=== PATIENT | male | born 1960 | race Caucasian/White ===

== ENCOUNTER 2023-08-20 19:22 | Emergency (ER) | payer OTHER, SELFPAY ==
[2023-08-20] VITALS (10 sets, daily range): BP systolic 148–159; BP diastolic 95–103; PULSE 68–86; RESP 10–19; TEMP 36.5; O2SAT 96; BMI 26.6
--- NOTE | 2023-08-20 19:49 | XR_ITS ---
The [address] [address] Patient Name: RETA FRASER MRN: [id number] date: 1960 Sex: M Assigned Patient Location: ER Current Patient Location: ER Accession/Order Number: [id number] Exam Date: 08/20/2023 20:25 Report Date: 08/20/2023 20:53 At the request of: CRISTIANA LIVINGSTON Procedure: XR chest 1V EXAM: XR chest 1V HISTORY: Nausea and vomiting COMPARISON: None. TECHNIQUE: Single frontal view of the chest. FINDINGS: Tubes/lines/devices: None. Lungs: Adequate inflation. No evidence of pneumonia or pulmonary edema. Pleura: No pneumothorax. No pleural effusion. Heart and mediastinum: No enlargement of the cardiomediastinal silhouette. Minimal aortic atherosclerosis. Bones/soft tissues: No acute osseous findings. Unremarkable soft tissues. Abdomen: Unremarkable. XR/XR chest 1V IMPRESSION: No acute pulmonary findings. Electronically authenticated by: OSVALDO PAZ Date: 08/20/2023 20:53
--- NOTE | 2023-08-20 19:51 | ECG_ITS ---
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
[2023-08-20] MEDS: 0.9 % SODIUM CHLORIDE 1,000 ML 999 ML IV (20:09)
[2023-08-20] MEDS: DIPHENHYDRAMINE HCL 50 MG/ML (1ML) VIAL 25 MG IV (20:10)
[2023-08-20] MEDS: ONDANSETRON PF 4 MG/2 ML VIAL IV (20:10)
[2023-08-20] MEDS: KETOROLAC TROMETHAMINE 30 MG/ML VIAL IVP (20:10)
--- NOTE | 2023-08-20 20:12 | ED.GENADUL1 ---
HPI - General Adult General Chief complaint: Recheck/Abnormal Lab/Rx Stated complaint: Medication Refill, Anxiety Time Seen by Provider: 08/20/23 19:43 Source: patient Mode of arrival: walk-in History of Present Illness HPI narrative: 63-year-old male presents to the ER with concerns of nausea, dry heaving occasional vomiting and diarrhea. Patient states he feels he is having withdrawal symptoms from missing 2 days worth of his 75mg pregablin medication.Patient sees rheumatology for arthritis, states he takes meloxicam, hydrochloriquine and pregabalin to control his symptoms. pt gets 90 day rx, missing pills for last wk of treatment.. pt reports dry heaves/ body aches starting day he ran out. present to ER this evening.. 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 No chest pain, but some shortness of breath, his brother has a history of quadruple bypass heart surgery. Patient himself has no cardiac history. Denies any abdominal pain. Onset (ago): day(s) (2) Severity: moderate Associated symptoms: Reports nausea/vomiting Related Data Previous Rx's Medication Instructions Recorded ondansetron HCl 4 mg tablet 4 mg PO Q6H PRN nausea and 08/20/23 vomiting #12 tabs pregabalin 75 mg capsule 75 mg PO Q8H 6 days #18 caps 08/20/23 Allergies Allergy/AdvReac Type Severity Reaction Status Date / Time acetaminophen [From Vicodin] Allergy Mild Gastrointestinal Verified 08/20/23 19:42 Upset hydrocodone [From Vicodin] Allergy Mild Gastrointestinal Verified 08/20/23 19:42 Upset Review of Systems ROS Constitutional Denies: fever or chills Eyes Denies: change in vision Ears, nose, mouth, and throat Denies: throat pain or neck pain Cardiovascular Denies: chest pain or palpitations Respiratory Denies: shortness of breath or cough Gastrointestinal Reports: nausea, vomiting and diarrhea; Denies: abdominal pain Genitourinary Denies: painful urination Musculoskeletal Denies: back pain or neck pain Integumentary/Breast Denies: rash Neurological Denies: headache Psychiatric Denies: anxiety Hematologic/Lymphatic Denies: easy bruising PFSH PFSH Social History Smoking status: Former smoker Exam Narrative Exam Narrative: Nurses notes and vital signs reviewed and patient is not hypoxic. General: The patient appears uncomfortable + dry heaves Skin: Warm, dry, no pallor noted. No evidence of rash Head: Normocephalic, atraumatic Neck: Supple, trachea mid-line, no tenderness, no lymphadenopathy Eye: Pupils are equal, round and reactive to light, EOMI Ears, Nose, Mouth, and Throat: TM are clear, normal light reflex, oral mucosa is moist, no posterior oropharynx erythema or hypertrophy, uvula is mid-line Cardiovascular: Regular Rate and Rhythm Respiratory: Patient is in no distress, no accessory muscle use, lungs are clear to auscultation, no wheezing, rales or rhonchi. Chest Wall: no tenderness Back: non-tender, no CVA tenderness Musculoskeletal: normal ROM, no tenderness, no swelling, no joint swelling. subjective arthralgia, moving all joints. no warmth or erythema, no swelling. GI: Normal bowel sounds, no tenderness to palpation, no masses appreciated. No rebound, guarding, or rigidity noted. Neurological: A&O x4 Psychiatric: Cooperative Constitutional Vital Signs, click to edit/add: Last Vital Signs Temp 97.7 F 08/20/23 19:33 Pulse 72 08/20/23 21:20 Resp 17 08/20/23 21:20 BP 159/95 H 08/20/23 21:00 Pulse Ox 96 08/20/23 19:33 O2 Del Method Room Air 08/20/23 19:33 Course Vital Signs Vital signs: Vital Signs Temperature 97.7 F 08/20/23 19:33 Pulse Rate 86 08/20/23 19:33 Respiratory Rate 18 08/20/23 19:33 Blood Pressure 148/97 H 08/20/23 19:33 Pulse Oximetry 96 08/20/23 19:33 Oxygen Delivery Method Room Air 08/20/23 19:33 Temperature 97.7 F 08/20/23 19:33 Pulse Rate 72 08/20/23 21:20 Respiratory Rate 17 08/20/23 21:20 Blood Pressure 159/95 H 08/20/23 21:00 Pulse Oximetry 96 08/20/23 19:33 Oxygen Delivery Method Room Air 08/20/23 19:33 Medical Decision Making MDM Narrative Medical decision making narrative: We discussed potential withdrawal symptoms, dealing with symptoms for 2 days. Patient taking his other medications for arthritis. Labs discussed at bedside. Patient treated with 1 L IV fluids, zofran 4mg Benadryl 25 mg IV, Toradol 30 mg IV and given dose of pregabalin 75 mg p.o. Reevaluated, reports feeling much better, no longer nauseous, tolerating p.o. ice chips. We discussed elevated BUN consistent with early dehydration given his dry heaving nausea and vomiting. We discussed his concerns with medication withdrawals. Patient has the bottle of prescription which is empty. He agrees to take the medication as prescribed with risks and benefits discussed, he is unable to get a refill until 08/26. 6-day bridge prescription was sent in with a message to the pharmacist. Message was relayed to the pharmacist that I am aware of his prior prescriptions but he is out of the medication. Patient was appreciative for of ER visit The patient is to followup with primary care physician in next 2-3 days or to return to the emergency department should any of the signs or symptoms worsen or new symptoms develop. Patient had questions answered. The patient agrees with the following Diagnosis and Treatment plan and the patient will be discharged home. Lab Data Lab results reviewed: Yes I reviewed the patient's lab results Labs: Lab Results 08/20/23 Range/Units 20:05 WBC 11.3 H (4.0-11.0) 10^3/uL RBC 5.30 (4.70-6.10) 10^6/uL Hgb 16.2 (14.0-18.0) g/dL Hct 48.5 (42.0-54.0) % MCV 91.5 (80.0-94.0) fL MCH 30.6 (25.9-34.0) pg MCHC 33.4 (29.9-35.2) g/dL RDW 13.3 (11.0-15.0) % Plt Count 261 (150-450) 10^3/uL MPV 9.0 L (9.5-13.5) fL Neut % (Auto) 78.9 H (43.0-75.0) % Lymph % (Auto) 13.3 L (20.5-60.0) % [place] % (Auto) 6.6 (1.7-12.0) % Eos % (Auto) 0.7 L (0.9-7.0) % Baso % (Auto) 0.1 L (0.2-2.0) % Neut # (Auto) 8.9 H (1.4-6.5) 10^3/uL Lymph # (Auto) 1.5 (1.2-3.8) 10^3/uL [place] # (Auto) 0.8 (0.3-0.8) 10^3/uL Eos # (Auto) 0.1 (0.0-0.7) 10^3/uL Baso # (Auto) 0.0 (0.0-0.1) 10^3/uL Abs Immat Gran (auto) 0.05 H (0.00-0.03) 10^3/uL Imm/Tot Granulo (auto) 0.4 (0.0-0.5) % Sodium 142 (136-145) mmol/L Potassium 4.0 (3.5-5.1) mmol/L Chloride 105 (98-107) mmol/L Carbon Dioxide 27.7 (21.0-32.0) mmol/L Anion Gap 13.3 BUN 21.0 H (7.0-18.0) mg/dL Creatinine 1.09 (0.70-1.30) mg/dL Est GFR ( Amer) >60 (>=60) Est GFR (Non-Af Amer) >60 (>=60) BUN/Creatinine Ratio 19.3 Glucose 114 H (74-106) mg/dL Calcium 9.7 (8.5-10.1) mg/dL Total Bilirubin 0.5 (0.2-1.0) mg/dL AST 25 (15-37) U/L ALT 38 (16-63) U/L Alkaline Phosphatase 59 (46-116) U/L Troponin I High Sens <4.0 L (4.0-76.1) pg/mL Total Protein 8.2 (6.4-8.2) g/dL Albumin 4.5 (3.4-5.0) g/dL Globulin 3.7 g/dL Albumin/Globulin Ratio 1.2 Imaging Data Chest x-ray: Radiologist's impression: ITS Impressions Chest X-Ray 08/20/23 19:49 IMPRESSION: No acute pulmonary findings. Electronically authenticated by: OSVALDO PAZ Date: 08/20/2023 20:53 ECG Data Attestation: I personally reviewed and interpreted this ECG as follows: Interpretation: EKG interpretation: Emergency Department physician interpretation, normal sinus rhythm 61, no ectopy, no ST segment elevation, normal axis. Discharge Plan Discharge Chief Complaint: Recheck/Abnormal Lab/Rx Clinical Impression: Medication withdrawal, Nausea & vomiting, Dehydration Patient Disposition: Home, Self-Care Time of Disposition Decision: 21:09 Condition: Good Prescriptions / Home Meds: New ondansetron HCl 4 mg tablet 4 mg PO Q6H PRN (Reason: nausea and vomiting) Qty: 12 0RF pregabalin 75 mg capsule 75 mg PO Q8H 6 Days Qty: 18 0RF Instructions: Acute Nausea and Vomiting (ED) Stand Alone Forms: Portal Instructions Referrals: EL BUSH [Primary Care Provider] - 1 week HAYDEN SHIRLEY [Physician] - 1 week Discharge Date/Time: 08/20/23 21:29
[2023-08-20] MEDS: PREGABALIN 75 MG CAPSULE PO (20:19)
[2023-08-20 20:36] LABS: Basophils Percent Auto 0.1 % (0.2-2.0); Eosinophils Absolute Auto 0.1 10^3/uL (0.0-0.7); Eosinophils Percent Auto 0.7 % (0.9-7.0); Hematocrit 48.5 % (42.0-54.0); Hemoglobin 16.2 g/dL (14.0-18.0); Immature Granulocytes Abs Auto 0.05 10^3/uL (0.00-0.03); Immature Granulocytes Pct Auto 0.4 % (0.0-0.5); Lymphocytes Absolute Auto 1.5 10^3/uL (1.2-3.8); Lymphocytes Percent Auto 13.3 % (20.5-60.0); Mean Corpuscular HGB Conc 33.4 g/dL (29.9-35.2); Mean Corpuscular Hemoglobin 30.6 pg (25.9-34.0); Mean Corpuscular Volume 91.5 fL (80.0-94.0); Monocytes Absolute Auto 0.8 10^3/uL (0.3-0.8); Monocytes Percent Auto 6.6 % (1.7-12.0); Neutrophils Absolute Auto 8.9 10^3/uL (1.4-6.5); Neutrophils Percent Auto 78.9 % (43.0-75.0); Platelet Count 261 10^3/uL (150-450); Red Cell Distribution Width 13.3 % (11.0-15.0); White Blood Count 11.3 10^3/uL (4.0-11.0)
[2023-08-20 20:48] LABS: Alanine Aminotransferase 38 U/L (16-63); Albumin Globulin Ratio 1.2; Albumin Level 4.5 g/dL (3.4-5.0); Alkaline Phosphatase 59 U/L (46-116); Anion Gap 13.3; Aspartate Amino Transferase 25 U/L (15-37); BUN Creatinine Ratio 19.3; Bilirubin Total 0.5 mg/dL (0.2-1.0); Calcium 9.7 mg/dL (8.5-10.1); Carbon Dioxide 27.7 mmol/L (21.0-32.0); Chloride 105 mmol/L (98-107); Estimated GFR (African America >60 (>=60); Estimated GFR (Non-African Ame >60 (>=60); Globulin 3.7 g/dL; Glucose 114 mg/dL (74-106); Sodium 142 mmol/L (136-145); Total Protein 8.2 g/dL (6.4-8.2); Troponin I High Sensitivity <4.0 pg/mL (4.0-76.1)
== END 2023-08-20 21:29 | disposition home or self-care (01) ==
PROVIDERS: Personal Emergency Response Attendant; Emergency Provider Internal Medicine; PCP Family Medicine
DX: F19.239 Other psychoactive substance dependence with withdrawal, unspecified (principal); E86.0 Dehydration; R11.2 Nausea with vomiting, unspecified; Z79.899 Other long term (current) drug therapy; Z87.891 Personal history of nicotine dependence
CPT/HCPCS: 36415; 71045; 80053; 84484; 85025; 93005; 96361; 96374; 96375; 99285; J1200; J1885; J2405

== ENCOUNTER 2024-10-06 08:52 | Emergency (ER) | payer OTHER, SELFPAY ==
[2024-10-06 08:56] VITALS: BP 119/82; PULSE 119; TEMP 36.7; O2SAT 95; BMI 45.6
--- NOTE | 2024-10-06 09:00 | ECG_ITS ---
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 Measurements Intervals [place] Rate: 114 P: 60 [place]: 128 QRS: 20 QRSD: 84 T: 45 QT: 314 QTc: 382 Interpretive Statements 1120 Sinus tachycardia Otherwise normal ECG Compared to ECG 08/20/2023 20:18:24 Sinus bradycardia no longer present Electronically Signed On 10-06-2024 20:13:18 EDT by VIRAL CRUZ M.D.
--- NOTE | 2024-10-06 09:02 | ED.GENADUL1 ---
HPI HPI - General Adult General Chief complaint: Extremity Problem, Nontraumatic Stated complaint: KNEE PAIN- POST OP Time Seen by Provider: 10/06/24 08:56 Source: patient Mode of arrival: walk-in History of Present Illness HPI narrative: 64-year-old male presents to the emergency department for right knee pain. 3 days ago he had right knee replacement at the [facility], outpatient. 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 There was no injury. The pain is severe and he was transported here by paramedics. Related Data Previous Rx's ?Medication ?Instructions ?Recorded ondansetron HCl 4 mg tablet 4 mg PO Q6H PRN nausea and 08/20/23 vomiting #12 tabs pregabalin 75 mg capsule 75 mg PO Q8H 6 days #18 caps 08/20/23 Allergies Allergy/AdvReac Type Severity Reaction Status Date / Time acetaminophen (From Vicodin) Allergy Mild Gastrointestinal Verified 08/20/23 19:42 Upset hydrocodone (From Vicodin) Allergy Mild Gastrointestinal Verified 08/20/23 19:42 Upset Opioid HPI Opioid Management Most Recent Opioid Data: Last Pain Scale 6 08/20/23 20:24 08/20/23 Review of Systems ROS Narrative A ten point review of systems is negative except as noted above. PFSH PFSH Social History Smoking status: Former smoker Little interest or pleasure in doing things: not at all Feeling down, depressed, or hopeless: not at all Exam Narrative Exam Narrative: Nurses note and vital signs reviewed and patient is not hypoxic. General: The patient appears mildly uncomfortable and in no acute distress Skin: Warm, dry, no pallor noted. There is no rash noted. Head: Normocephalic, atraumatic Eye: Normal conjunctiva, no drainage Ears, Nose, Mouth, and Throat: oral mucosa is moist. Nares patent. Cardiovascular: Regular Rate and Rhythm, tachycardic Respiratory: Patient is in no distress, no accessory muscle use, lungs are clear to auscultation, no wheezing, rales or rhonchi Back: non-tender GI: Soft and nontender Musculoskeletal: Dressing in place on the anterior right knee. There is bruising. Neurological: A&O, normal speech Psychiatric: Cooperative Constitutional Vital Signs, click to edit/add: Last Vital Signs Temp 98.1 F 10/06/24 08:56 Pulse 119 H 10/06/24 08:56 Resp 22 H 10/06/24 08:56 BP 119/82 10/06/24 08:56 Pulse Ox 95 10/06/24 08:56 Course Vital Signs Vital signs: Vital Signs Temperature 98.1 F 10/06/24 08:56 Pulse Rate 119 H 10/06/24 08:56 Respiratory Rate 22 H 10/06/24 08:56 Blood Pressure 119/82 10/06/24 08:56 Pulse Oximetry 95 10/06/24 08:56 Temperature 98.1 F 10/06/24 08:56 Pulse Rate 119 H 10/06/24 08:56 Respiratory Rate 22 H 10/06/24 08:56 Blood Pressure 119/82 10/06/24 08:56 Pulse Oximetry 95 10/06/24 08:56 Medical Decision Making MDM Narrative Medical decision making narrative: X-ray shows no acute findings and blood work is normal. He was given IV morphine and feels much better now. He was given another dose prior to discharge and he has oxycodone at home. He will call his orthopedist in the morning. Treatment diagnosis and follow-up were discussed with the patient and his Differential Diagnosis Differential Diagnosis: Hardware issue, postoperative pain Lab Data Lab results reviewed: Yes I reviewed the patient's lab results Labs: Lab Results 10/06/24 Range/Units 09:24 WBC 9.4 (4.0-11.0) 10^3/uL RBC 3.26 L (4.70-6.10) 10^6/uL Hgb 10.5 L (14.0-18.0) g/dL Hct 30.3 L (42.0-54.0) % MCV 92.9 (80.0-94.0) fL MCH 32.2 (25.9-34.0) pg MCHC 34.7 (29.9-35.2) g/dL RDW 13.5 (11.0-15.0) % Plt Count 209 (150-450) 10^3/uL MPV 8.8 L (9.5-13.5) fL Neut % (Auto) 83.8 H (43.0-75.0) % Lymph % (Auto) 6.3 L (20.5-60.0) % [place] % (Auto) 8.8 (1.7-12.0) % Eos % (Auto) 0.7 L (0.9-7.0) % Baso % (Auto) 0.2 (0.2-2.0) % Neut # (Auto) 7.9 H (1.4-6.5) 10^3/uL Lymph # (Auto) 0.6 L (1.2-3.8) 10^3/uL [place] # (Auto) 0.8 (0.3-0.8) 10^3/uL Eos # (Auto) 0.1 (0.0-0.7) 10^3/uL Baso # (Auto) 0.0 (0.0-0.1) 10^3/uL Abs Immat Gran (auto) 0.02 (0.00-0.03) 10^3/uL Imm/Tot Granulo (auto) 0.2 (0.0-0.5) % Sodium 139 (136-145) mmol/L Potassium 4.2 (3.5-5.1) mmol/L Chloride 102 (98-107) mmol/L Carbon Dioxide 28.4 (21.0-32.0) mmol/L Anion Gap 12.8 BUN 19.0 H (7.0-18.0) mg/dL Creatinine 1.16 (0.70-1.30) mg/dL Est GFR ( Amer) >60 (>=60 mL/min/1.73m^2) Est GFR (Non-Af Amer) >60 (>=60 mL/min/1.73m^2) BUN/Creatinine Ratio 16.4 Glucose 129 H (74-106) mg/dL Calcium 8.9 (8.5-10.1) mg/dL Imaging Data Right knee x-ray: Radiologist's impression: Prosthesis in place ECG Data Attestation: I personally reviewed and interpreted this ECG as follows: (EKG on my interpretation shows sinus rhythm with a rate of 114 and no acute change) Discharge Plan Discharge Chief Complaint: Extremity Problem, Nontraumatic Clinical Impression: Post-operative pain Patient Disposition: Home, Self-Care Time of Disposition Decision: 10:25 Condition: Good Mode of Transportation: Private Vehicle Prescriptions / Home Meds: No Action ondansetron HCl 4 mg tablet 4 mg PO Q6H PRN (Reason: nausea and vomiting) Qty: 12 0RF pregabalin 75 mg capsule 75 mg PO Q8H 6 Days Qty: 18 0RF Print Language: Kiswahili Instructions: Pain Management After Surgery (DC) Referrals: EL BUSH [Primary Care Provider] - 1 week
[2024-10-06] MEDS: MORPHINE SULFATE 4 MG/ML VIAL IV ×2 (09:06→10:39)
--- OUTSIDE RECORDS SUMMARY | 2024-10-06 09:06 | XMS_ITS | CCD ---
Author Organization [facility] Care Team Providers Care Reservations Agent Name Role Phone MD [place] Primary Care Provider MD Ryder Mcginnis Attending Provider DO Caleb Hsieh Attending Provider Pcp, No Primary Care Provider Unavailalida e Eleazar VELASCO, El Tamayo Primary Care Provider MARTÍNEZ, DR RICARDO Admitting Unavailable MARTÍNEZ, DR RICARDO Attending Unavailable HEMEYER, DR GALLEGOS Primary Care Unavailable HEMEYER, DR GALLEGOS Admitting Unavailable HEMEYER, DR GALLEGOS Attending Unavailable HEMEYER, DR GALLEGOS Primary Care Unavailable HEMEYER, DR GALLEGOS Consulting Unavailable ELEAZAR, DR GALLEGOS Admitting Unavailable HEMEYER, DR GALLEGOS Attending Unavailable HEMEYER, DR GALLEGOS Primary Care Unavailable HETALYER, DR GALLEGOS Consulting Unavailable ELEAZAR, DR GALLEGOS Primary Care Unavailable ALEXY SALEH Admitting Unavailable ALEXY SALEH Attending Unavailable KAVON UP Consulting Unavailable Sara Bah Unavailable Val Mims Unavailable El Bush MD Primary Care Provider El Bush MD Primary Care Provider El Bush MD Primary Care Provider [phone] El Bush MD Primary Care Provider [phone] El Bush MD Primary Care Provider [phone] Sarahy Downey MD Attending Provider [place] Primary Care Unavailable Shayan Imad Attending Unavailable Shayan Imad Admitting Unavailable Shayan, Imad Admitting Unavailable [place] Primary Care Unavailable Asaad, Imad Attending Unavailable POONAM VALERIO Attending Unavailab YAMILA Justin Attending Unavailable DEMETRIA NARANJO Attending Unavailable MICHAEL PATRICK Attending Unavailable POONAM VALERIO Attending Unavailab le HEMEYER, EL J Attending Unavailable HEMEYER, EDCARMELA Attending Unavailable DEMETRIA NARANJO Attending Unavailable POONAM VALERIO Attending Unavailab le FERNHAYDEN Referring Unavailable SCOTCH, SHEN Attending Unavailable HEMEYER, [facility] Unavailab le FERNMARIA ESTHERHAYDEN Referring Unavailable SCOTCH, SHEN Attending Unavailable HEMEYER, [facility] Unavailab le SCOTCH, SHEN Referring Unavailable HEMEYER, [facility] Unavailab le FERNBLANCAT Referring Unavailable HEMEYER, [facility] Unavailab JOSÉ LUIS Jean-Baptiste Admitting Unavailable JOSÉ LUIS SIGALA Attending Unavailable KOLJOSÉ LUIS COHEN Referring Unavailable HEMEYER, [facility] Unavailab HAYDEN Lovett Attending Unavailable HEMEYER, [facility] Unavailab le HEMEYER, [facility] Unavailab le KOLCZUNJOSÉ LUIS Referring Unavailable HEMEYER, [facility] Unavailab le KOLCZUNJOSÉ LUIS Referring Unavailable HEMEYER, [facility] Unavailab le KOLCZUNJOSÉ LUIS C Referring Unavailable KOLCZUNJOSÉ LUIS Referring Unavailable HEMEYER, [facility] Unavailab le SCOTCH, SHEN Attending Unavailable HEMEYER, [facility] Unavailab le JOSÉ LUIS SIGALA Attending Unavailable SCOTCH, SHEN Referring Unavailable HEMEYER, [facility] Unavailab le JOSÉ LUIS SIGALA Attending Unavailable SCOTCH, SHEN Referring Unavailable HEMEYER, [facility] Unavailab le FERNHAYDEN Santacruz Referring Unavailable SCOTCH, SHEN Attending Unavailable SCOTCH, SHEN Referring Unavailable HEMEYER, [facility] Unavailab le Allergies Allergy Classification Reported Allergen(s) Allergy Type Date of Onset Reaction(s) Facility Acetaminophen / HYDROcodone (1 source) Acetaminophen / HYDROcodone Drug Allergy 3 Intolerance [facility] Baclofen (1 source) Baclofen Drug Allergy 3 Intolerance [facility] QUEtiapine (1 source) QUEtiapine Drug Allergy 3 Intolerance [facility] Serotonin Reuptake Inhibitors (SSRIs) (1 source) traZODone Drug Allergy 3 Intolerance [facility] (20 sources) Acetaminophen / HYDROcodone; Translations: [HYDROCODONE-ACET AMINOPHEN] Drug Allergy 3 Intolerance, GI intolerance, GI Upset [facility] (20 sources) Baclofen; Translations: [BACLOFEN] Drug Allergy 3 Intolerance [facility] (20 sources) QUEtiapine; Translations: [QUETIAPINE] Drug Allergy 2 Intolerance, Unknown, GI intolerance [facility] (20 sources) traZODone; Translations: [TRAZODONE] Drug Allergy 2 Intolerance, Unknown, GI intolerance [facility] (3 sources) Acetaminophen / HYDROcodone Drug Allergy 3 Stomach pain [facility] (1 source) Baclofen Drug Allergy [facility] (1 source) QUEtiapine Drug Allergy [facility] (1 source) traZODone Drug Allergy [facility] (20 sources) Acetaminophen Drug Allergy 2 GI intolerance [facility] (20 sources) Baclofen Drug Allergy 2 Unknown, GI intolerance [facility] (20 sources) HYDROcodone Drug Allergy 2 Unknown [facility] (20 sources) Temazepam; Translations: [TEMAZEPAM] Allergy to substance 2 Unknown [facility] (1 source) Acetaminophen Drug Allergy [facility] (1 source) HYDROcodone Drug Allergy 5 [facility] (2 sources) Temazepam Drug Allergy 2 Unknown [facility] Medications Current Medications Medication Drug Class(es) Dates Sig (Normalized) Sig (Original) acetaminophen 500 mg oral tablet (20 sources) Start: 09-13-2024 take 2 tablets by mouth every eight hours as needed acetaminophen (TYLENOL EXTRA STRENGTH) 500 mg tablet Take 2 tablets by mouth every 8 hours as needed for pain. 09/13/2024 Active Start: 2024 take 1 capsule by mo uth every six hours as needed for pain Acetaminophen 325 mg capsule Active 325 MG PO Every 6 hours as needed for pain 2024 12:00am take 2 tablets by mo uth in the morning acetaminophen (Tylenol 8 Hour) 650 MG ER tablet Take 1,300 mg by mouth in the morning and 1,300 mg before bedtime. Do not crush, chew, or split.. Active atorvastatin 40 mg oral tablet (20 sources) HMG-CoA Reductase Inhibitor Start: 01-01-2024 take 1 tablet by mouth once daily Atorvastatin 10 mg tablet Active 1 TAB PO Daily December 31, 2023 11:00pm [employer] tablet Orally Once a day; Note: Source Status: Taking; Provider: Prasanna Canseco ( ) Start: 09-11-2023 End: 04-15-2024 atorvastatin Discontinued PO September 11, 2023 12:00am April 15, 2024 12:05pm Start: 09-11-2023 End: 04-15-2024 atorvastatin Discontinued PO September 11, 2023 1:00am April 15, 2024 1:05pm Start: 09-11-2023 atorvastatin A ctive PO September 11, 2023 1:00am Start: 07-05-2022 End: 04-03-2025 take 1 tablet by mouth once daily atorvastatin (Lipitor) 40 MG tablet Indications: Mixed hyperlipidemia (CMS/HCC) Take 1 tablet (40 mg) by mouth Daily 90 tablet 3 04/03/2024 04/03/2025 Active take 1 tablet by marely th every twenty-four hours Atorvastatin Calcium 10 MG 1 tablet Orally Once a day Active Comment on above: TAKE 1 TABLET BY MARELY TH EVERY DAY FOR 30 DAYS biotin 10 mg oral tablet (20 sources) Start: 08-27-2024 take 1 tablet by mouth at bedtime Biotin Maximum Strength 87059 MCG tablet Indications: Polyneuropathy TAKE 1 TABLET (10 MG) BY MOUTH IN THE MORNING AND BEFORE BEDTIME 60 tablet 2 08/27/2024 Active Start: 05-20-2024 take 1 tablet by marely th at bedtime Biotin Maximum Strength 40616 MCG tablet Indications: Polyneuropathy TAKE 1 TABLET (10 MG) BY MOUTH IN THE MORNING AND BEFORE BEDTIME 60 tablet 2 05/20/2024 Active Start: 02-12-2024 take 1 tablet by marely th in the morning Biotin Maximum Strength 72610 MCG tablet Indications: Polyneuropathy TAKE 1 TABLET (10 MG) BY MOUTH IN THE MORNING AND 1 TABLET (10 MG) BEFORE BEDTIME. 60 tablet 2 02/12/2024 Active Start: 01-01-2024 Biotin 10 mg t ablet Active MG PO December 31, 2023 11:00pm Start: 01-01-2024 take 1 tablet by marely th once daily Biotin 10 mg tablet Active 10 MG PO Daily December 31, 2023 11:00pm Start: 01-01-2024 Biotin Active MG PO January 01, 2024 12:00am eszopiclone 3 mg oral tablet (20 sources) Start: 08-07-2024 take 1 tablet by mouth at bedtime eszopiclone (Lunesta) 3 MG tablet Indications: Insomnia, unspecified type Take 1 tablet (3 mg) by mouth at bedtime 30 tablet 2 08/07/2024 Active Start: 07-13-2024 eszopiclone (L unesta) 3 MG tablet Indications: Insomnia, unspecified type Take 1 tablet (3 mg) by mouth at bedtime Do not start before July 13, 2024. 30 tablet 07/13/2024 Active Start: 09-11-2023 lunesta Active PO Bedtime September 11, 2023 12:00am Start: 09-11-2023 lunesta Active PO September 11, 2023 12:00am Start: 09-11-2023 lunesta Active PO September 11, 2023 1:00am Start: 06-20-2022 End: 07-11-2024 eszopiclone (LUNESTA) 3 mg t ab TAKE 1 TABLET IMMEDIATELY BEFORE BEDTIME ONCE A DAY FOR 30 DAYS 06/20/2022 Active Comment on above: TAKE 1 TABLET IMMEDI ATELY BEFORE BEDTIME ONCE A DAY FOR 30 DAYS famotidine 40 mg oral tablet (20 sources) Histamine-2 Receptor Antagonist Start: 01-01-2024 End: 04-15-2024 take 1 tablet by mouth twice daily Famotidine 40 mg tablet Active 40 MG PO Twice daily 60 April 15, 2024 12:12pm Start: 09-11-2023 End: 01-01-2024 take 1 tablet by mouth once daily famotidine (Pepcid) 40 MG tablet Take 40 mg by mouth Daily 11/07/2023 Active Start: 05-15-2023 End: 08-21-2023 take 1 tablet by mouth in the morning famotidine (Pepcid) 20 MG tablet Indications: Gastroesophageal reflux disease without esophagitis Take 1 tablet (20 mg) by mouth in the morning. 30 tablet 0 05/15/2023 08/21/2023 Discontinued (Therapy completed) hydroxychloroquine sulfate 200 mg oral tablet (20 sources) Antimalarial, Antirheumatic Agent Start: 02-13-2024 hydrOXYchloroQUINE (PLAQUENIL) 200 mg tablet Indications: Rheumatoid arthritis of multiple sites without rheumatoid factor (HCC) TAKE 2 TABLETS ONCE DAILY WITH FOOD SUNSCREEN WHEN OUTDOORS SEE OPHTHAMOLOGY EVERY 2-6 MONTHS ON MED 180 tablet 3 02/13/2024 Active Start: 01-01-2024 Hydroxychloroq uine 200 mg tablet Active 100 MG PO Twice daily December 31, 2023 11:00pm Start: 01-01-2024 Hydroxychloroq uine Active MG PO January 01, 2024 12:00am Start: 02-27-2023 hydrOXYchloroQ UINE (PLAQUENIL) 200 mg tablet Indications: Rheumatoid arthritis of multiple sites without rheumatoid factor (HCC) Take 2 tabs by mouth daily with food. Sunscreen when outdoors. See ophthalmology every 6-12months on med. 180 tablet 3 02/27/2023 Active Start: 07-12-2022 End: 02-27-2023 take 1 tablet by mouth twice daily at mealtime hydroxychloroquine (Plaquenil) 200 MG tablet TAKE 1 TABLET BY MOUTH TWICE DAILY WITH FOOD, HAVE YEARLY EYE EXAM Oral for 15 Days 07/12/2022 Active Comment on above: Take 2 tabs by mouth daily with food. Sunscreen when outdoors. See ophthalmology every 6-12months on med. hydrOXYzine pamoate 25 mg oral capsule (20 sources) Antihistamine Start: 08-21-2023 hydrOXYzine pamoate (Vistaril) 25 MG capsule Indications: Acute drug withdrawal syndrome without complication (CMS/HCC) 1 to 2 tablets as needed 3 times daily as needed for withdrawal symptoms 40 capsule 0 08/21/2023 Active Start: 07-05-2022 End: 07-31-2024 hydrOXYzine HCl (ATARAX) 25 mg tablet 07/05/2022 07/31/2024 Discontinued (Course of therapy completed) Comment on above: TAKE 1 TABLET BY MARELY TH 3 TIMES A DAY NEEDED FOR SLEEP DISTURBANCE/ANXIETY levoFLOXacin 750 mg oral tablet (1 source) Quinolone Antimicrobial Start: End: take 1 tablet by mouth once daily levoFLOXacin (Levaquin) 750 MG tablet Indications: Bronchitis Take 1 tablet (750 mg) by mouth Daily for 7 days 7 tablet 09/30/2024 10/07/2024 Active levothyroxine sodium 0.075 mg oral tablet (20 sources) l-Thyroxine Start: End: Levothyroxine Discontinued MCG PO January 01, 2024 12:00am April 15, 2024 1:05pm Start: 09-11-2023 take 1 capsule by mo cox monett once daily Levothyroxine 75 mcg capsule Active 75 MCG PO Daily September 11, 2023 12:00am Start: 03-14-2023 End: 04-03-2025 take 1 tablet by mouth once daily levothyroxine (Synthroid, Levoxyl) 75 MCG tablet Indications: Acquired hypothyroidism (CMS/HCC) Take 1 tablet (75 mcg) by mouth 1 (one) time each day at the same time 30 tablet 11 04/03/2024 04/03/2025 Active Start: 01-17-2012 End: 07-31-2024 take 1 tablet by mouth twice daily, then take 0.5 tablet by mouth twice daily levothyroxine 75 mcg tablet Take 1 tablet by mouth twice daily. Take a 1/2 tablet bu mouth twice daily 01/17/2012 07/31/2024 Discontinued (Adjust Sig - Block E-Cancel) take 1 tablet by marely th every twenty-four hours Levothyroxine Sodium 88 MCG 1 tablet Orally Once a day Active take 1 tablet by marely th every twenty-four hours Levothyroxine Sodium 88 MCG 1 tablet Orally Once a day Active Comment on above: Take 1 tablet by marely th twice daily. Take a 1/2 tablet bu mouth twice daily melatonin 10 mg oral tablet (20 sources) Start: 01-19-2022 take 1 tablet by mouth at bedtime melatonin 10 MG tablet Take 1 tablet by mouth at bedtime. 01/19/2022 Active Start: 01-19-2022 Melatonin 5 mg cap 1 (one) time each day at the same time. 01/19/2022 Active Comment on above: 1 (one) time each da y at the same time. mupirocin 0.02 mg/mg topical ointment (2 sources) RNA Synthetase Inhibitor Antibacterial Start: End: mupirocin (BACTROBAN) 2 % ointment Indications: Pre-op evaluation two times a day for 5 days. Apply 0.5 inch with cotton swab (Q-tip) to each nostril in the morning and evening for 5 days prior to and including day of surgery. 22 g 09/13/2024 09/18/2024 Active nortriptyline 75 mg oral capsule (20 sources) Tricyclic Antidepressant Start: End: take 1 capsule by mouth once daily at bedtime nortriptyline (Pamelor) 75 MG capsule Indications: Insomnia, unspecified type , Polyneuropathy TAKE 1 CAPSULE BY MOUTH EVERYDAY AT BEDTIME 90 capsule 1 06/21/2024 Active Start: 02-12-2024 Nortriptyline Active 30 MG PO February 12, 2024 2:03pm Start: 01-08-2024 End: 01-07-2025 take 2 capsules by mouth once daily at bedtime nortriptyline (PAMELOR) 25 mg capsule Take 50 mg by mouth daily at bedtime. 04/30/2024 Active Start: 01-01-2024 End: 02-12-2024 Nortriptyline 10 mg capsule Active 30 MG PO As Directed February 12, 2024 1:03pm Start: 01-01-2024 End: 02-12-2024 Nortriptyline Discontinued M G PO January 01, 2024 12:00am February 12, 2024 2:03pm omeprazole 40 mg delayed release oral capsule (20 sources) Proton Pump Inhibitor Start: 11-17-2023 End: 02-19-2024 omeprazole (PRILOSEC) 40 mg capsule Take 40 mg by mouth. 11/17/2023 Active Start: 09-11-2023 End: 01-01-2024 take 1 capsule by mouth once daily omeprazole (PriLOSEC) [address] capsule Take 40 mg by mouth Daily 11/17/2023 Active Start: 07-31-2023 take 1 capsule by mo cox monett once daily Omeprazole 40 MG 1 capsule 30 minutes before morning meal Orally Once a day for 30 days Jul, Active Omeprazole 20 MG 1 capsule 30 minutes before morning meal Orally as needed as needed Active ondansetron 4 mg oral tablet (20 sources) Serotonin-3 Receptor Antagonist Start: 08-21-2023 ondansetron (Zofran) 4 MG tablet Take by mouth every 8 (eight) hours if needed 08/21/2023 Active predniSONE 5 mg oral tablet (20 sources) Start: 02-27-2023 predniSONE (DELTASONE) 5 mg tablet Day 1=6tabs with food, Day 2=5tabs, Day 3=4tabs, Day 4=3tabs, Day 5=2tabs, Day 6=1tab, No NSAIDs on med 21 tablet 1 02/27/2023 Active Start: 12-12-2022 End: 08-21-2023 take 2 tablets by mouth twice daily, then take 1 tablet by mouth twice daily, then take 1 tablet by mouth once daily predniSONE (Deltasone) 10 MG tablet Indications: Plantar fasciitis Take 2 pills by mouth twice daily for 5 days, take 1 pill twice daily for 5 days then 1 pill once daily for 5 days. 35 tablet 0 12/12/2022 08/21/2023 Discontinued (Therapy completed) Start: 05-18-2022 End: 02-27-2023 predniSONE (DELTASONE) 5 mg tablet TAKE 2 TABLETS EVERY MORNING FOR 1 WEEK,THEN 1 TABLET EVERY DAY NEEDED 0 05/18/2022 02/27/2023 Discontinued prednisone as ne eded Active Comment on above: TAKE 2 TABLETS EVERY MORNING FOR 1 WEEK,THEN 1 TABLET EVERY DAY NEEDED Day 1=6tabs with sriram d, Day 2=5tabs, Day 3=4tabs, Day 4=3tabs, Day 5=2tabs, Day 6=1tab, No NSAIDs on med pregabalin 150 mg oral capsule (20 sources) Start: End: take 1 capsule by mouth in the morning, then take 1 capsule by mouth in the evening, then take 1 capsule by mouth at bedtime pregabalin (Lyrica) 150 MG capsule Indications: Polyneuropathy Take 1 capsule (150 mg) by mouth in the morning and 1 capsule (150 mg) in the evening and 1 capsule (150 mg) before bedtime. 270 capsule 08/28/2024 11/26/2024 Active Start: 01-01-2024 take 1 capsule by mo uth once daily Pregabalin (Lyrica) 75 mg capsule Active 75 MG PO Daily December 31, 2023 11:00pm Start: 09-11-2023 End: 04-15-2024 lyrica Discontinued PO September 11, 2023 12:00am April 15, 2024 12:06pm Start: 09-11-2023 End: 04-15-2024 lyrica Discontinued PO September 11, 2023 1:00am April 15, 2024 1:06pm Start: 09-11-2023 lyrica Active PO September 11, 2023 1:00am Start: 08-25-2023 End: 11-26-2024 take 1 capsule by mouth once daily pregabalin (LYRICA) 100 mg capsule Indications: Neuropathy Take 1cap by mouth 3times a day 270 capsule 1 11/27/2023 11/26/2024 Active Start: 02-27-2023 End: 02-27-2024 take 1 capsule by mouth three times daily pregabalin (LYRICA) 75 mg capsule Indications: Cervicalgia , Chronic bilateral low back pain without sciatica Take 1 capsule by mouth three times a day. 270 capsule 1 11/23/2023 11/27/2023 Discontinued Start: 07-14-2022 End: 02-10-2024 take 1 capsule by mouth twice daily pregabalin (LYRICA) 50 mg capsule Indications: Other polyneuropathy TAKE 1 CAPSULE BY MOUTH TWICE A DAY 180 capsule 3 01/09/2023 02/27/2023 Discontinued Start: 06-14-2022 take 1 capsule by mo uth in the morning, then take 1 capsule by mouth in the evening, then take 1 capsule by mouth at bedtime pregabalin (Lyrica) 25 MG capsule Take 25 mg by mouth in the morning and 25 mg in the evening and 25 mg before bedtime. 0 06/14/2022 Active Comment on above: Take 1cap by mouth t wice a day TAKE 1 CAPSULE BY MO UTH TWICE A DAY Take 1 capsule by mo uth three times daily. sucralfate 1000 mg oral tablet (20 sources) Aluminum Complex Start: 02-12-2024 End: 08-28-2024 take 1 tablet by mouth every six hours sucralfate (Carafate) 1 g tablet Take 1 g by mouth every 6 (six) hours 02/12/2024 08/28/2024 Discontinued Start: 02-12-2024 End: 08-21-2024 take 1 tablet by mouth four times daily Sucralfate (Carafate) 1 gram tablet Active 1 GM PO Four times daily 120 April 15, 2024 12:11pm thiamine 100 mg oral tablet (17 sources) Start: 04-05-2024 End: 08-28-2025 take 1 tablet by mouth in the morning thiamine (Vitamin B-1) 100 MG tablet Indications: Polyneuropathy Take 1 tablet (100 mg) by mouth in the morning and 1 tablet (100 mg) before bedtime. 180 tablet 3 08/28/2024 08/28/2025 Active vitamin b12 0.1 mg oral tablet (6 sources) Vitamin B12 Start: 2024 take 1 tablet by mouth once daily cyanocobalamin (VITAMIN B-12) 100 mcg tab Take 100 mcg by mouth once daily. 2024 Active Completed/Discontinued Medications Medication Drug Class(es) Dates Sig (Normalized) Sig (Original) amoxicillin 500 mg oral capsule (1 source) Penicillin-class Antibacterial take 4 capsules by mouth every twenty-four hours Amoxicillin 500 MG 4 capsules one time Orally Once a day Not-Taking Baclofen (20 sources) gamma-Aminobutyric Acid-ergic Agonist Start: 09-11-2023 End: 01-01-2024 baclofen Discontinued PO September 11, 2023 12:00am January 01, 2024 9:35am Start: 09-11-2023 End: 01-01-2024 baclofen Discontinued PO Sep 1:00am January 01, 2024 10:35am Start: 01-17-2012 End: 07-31-2024 take 1 tablet by mouth once daily at bedtime baclofen 10 mg tablet take 1 tablet by mouth everyday at bedtime 30 tablet 11 06/14/2023 07/31/2024 Discontinued (Course of therapy completed) take 1 tablet by marely th every eight hours Baclofen 20 MG 1 tablet with food or milk Orally Three times a day Not-Taking Comment on above: Take 1 tablet by marely th daily at bedtime. take 1 tablet by marely everyday at bedtime celecoxib 200 mg oral capsule (5 sources) Nonsteroidal Anti-inflammatory Drug Start: 06-15-20 End: 02-28-20 celecoxib (CELEBREX) 200 mg capsule clonazePAM 1 mg oral tablet (2 sources) Benzodiazepine Start: 01-17-20 End: 07-14-19 take 3 tablets by mouth every twenty-four hours as needed clonazePAM (KLONOPIN) 1 mg tablet Take 3 tablets by mouth at bedtime as needed. 0 01/17/2012 07/14/2022 Discontinued (Course of therapy completed) take 1 tablet by mouth every eig ht hours KlonoPIN 1 MG 1 tablet Orally Three times a day Not-Taking Comment on above: Take 3 tablets by mo cox monett at bedtime as needed. 3 ml sodium hyaluronate 20 mg/ml prefilled syringe (2 sources) Start: 4 End: hyaluronate sodium, stabilized syrg 3 mL (DUROLANE) liothyronine sodium 0.005 mg oral tablet (12 sources) l-Triiodothyronine Start: 2 End: 4 take 1 tablet by mouth twice daily liothyronine (CYTOMEL) 5 mcg tablet Take 1 tablet by mouth twice daily. 0 01/17/2012 11/27/2023 Discontinued Comment on above: Take 1 tablet by marely twice daily. meloxicam 15 mg oral tablet (20 sources) Nonsteroidal Anti-inflammatory Drug Start: 4 End: meloxicam Discontinued PO September 11, 2023 12:00am January 01, 2024 9:35am Start: 09-11-2023 End: 01-01-2024 meloxicam Discontinued PO [facility] 2023 1:00am January 01, 2024 10:35am Start: 02-27-2023 End: 07-31-2024 take 1 tablet by mouth once daily at mealtime for pain meloxicam (MOBIC) 15 mg tablet TAKE 1 TABLET BY MOUTH ONCE DAILY. TAKE WITH FOOD. FOR PAIN 30 tablet 11 01/31/2024 07/31/2024 Discontinued (Side Effects) Comment on above: Take 1 tablet by marely once daily. Take with food. For pain Niacin (1 source) Nicotinic Acid Niacin Not-Takin g terbinafine 250 mg oral tablet (11 sources) Allylamine Antifungal Start: 02-21-20 23 End: 11-27-19 24 take 1 tablet by mouth once daily in the morning terbinafine HCl (LAMISIL) 250 mg tablet Take 1 tablet by mouth every morning. 0 02/20/2023 11/27/2023 Discontinued Comment on above: Take 1 tablet by marely th every morning. Triamcinolone (2 sources) Corticosteroid Start: 03-15-20 KENALOG - 10 mg Mar, 60 mg Problems Active Problems Problem Classification Problem Date Documented Da te Episodic/Chronic Abdominal pain (16 sources) Epigastric pain; Translations: [Indigestion] Onset: 5 Episodic Anxiety disorders (20 sources) Anxiety; Translations: [Anxiety disorder, unspecified] Onset: 4 11-17-2023 Chronic Bacterial infection; unspecified site (2 sources) Methicillin resistant Staphylococcus aureus infection; Translations: [Methicillin resistant Staphylococcus aureus infection, unspecified site] Onset: 5 08-21-2024 Episodic Cardiac dysrhythmias (4 sources) Palpitations; Translations: [PALPITATIONS] Onset: 2 Episodic Chronic kidney disease (20 sources) Chronic kidney disease stage 2; Translations: [Chronic kidney disease, stage 2 (mild)] Onset: 3 02-28-2023 Chronic Chronic obstructive pulmonary disease and bronchiectasis (1 source) Bronchitis; Translations: [Bronchitis, not specified as acute or chronic] 09-30-2024 Episodic Deficiency and other anemia (2 sources) Anemia of chronic disease; Translations: [Anemia in other chronic diseases classified elsewhere] 02-27-2023 Chronic Deficiency and other anemia (1 source) Anemia in other chronic diseases classified elsewhere; Translations: [Anemia of chronic disease] Onset: 4 Chronic Disorders of lipid metabolism (20 sources) Mixed hyperlipidemia; Translations: [Mixed hyperlipidemia] Onset: 5 02-28-2023 Chronic Esophageal disorders (20 sources) Gastroesophageal reflux disease; Translations: [Gastro-esophageal reflux disease without esophagitis] Onset: 3 Chronic Genitourinary symptoms and ill-defined conditions (2 sources) Increased frequency of urination; Translations: [Frequency of micturition] Onset: 5 08-21-2024 Episodic Joint disorders and dislocations; trauma-related (20 sources) Chondromalacia of right patella; Translations: [Chondromalacia patellae, right knee] Onset: 3 03-01-2023 Chronic Joint disorders and dislocations; trauma-related (20 sources) Chondromalacia of left patella; Translations: [Chondromalacia patellae, left knee] Onset: 1 02-28-2023 Chronic Malaise and fatigue (20 sources) Chronic fatigue, unspecified; Translations: [Chronic fatigue syndrome] Onset: 9 Resolved: 4 02-28-2023 Chronic Menopausal disorders (1 source) Hormone replacement therapy; Translations: [HORMONE REPLACEMENT THERAPY] Onset: 2 Episodic Miscellaneous mental health disorders (20 sources) Primary insomnia; Translations: [Primary insomnia] Onset: 5 02-28-2023 Chronic Nausea and vomiting (9 sources) Nausea; Translations: [Nausea] Episodic Nutritional deficiencies (1 source) Vitamin D deficiency; Translations: [Vitamin D deficiency, unspecified] 02-27-2023 Chronic Nutritional deficiencies (1 source) Cobalamin deficiency; Translations: [Deficiency of other specified B group vitamins] 02-27-2023 Episodic Osteoarthritis (20 sources) Heberden node; 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)] Onset: 0 07-14-2022 Chronic Other aftercare (1 source) Other jail (current) drug therapy; Translations: [OTH CORRECTION CURRENT DRUG THERAPY] Onset: 2 Episodic Other aftercare (1 source) retirement (current) use of aspirin; Translations: [RANGE SCIENTIST CURRENT USE OF ASPIRIN] Onset: 2 Episodic Other connective tissue disease (1 source) Presence of right artificial knee joint; Translations: [S/P TKR (total knee replacement), right] Onset: 5 Chronic Other ear and sense organ disorders (2 sources) Bilateral hearing loss; Translations: [Unspecified hearing loss, bilateral] Chronic Other ear and sense organ disorders (1 source) Unspecified hearing loss, bilateral Chronic Other gastrointestinal disorders (1 source) Abdominal distension (gaseous); Translations: [Abdominal distension (gaseous)] Onset: 5 Episodic Other hematologic conditions (2 sources) ESR raised; Translations: [Elevated erythrocyte sedimentation rate] 02-27-2023 Episodic Other nervous system disorders (20 sources) Peripheral nerve disease ; Translations: [Polyneuropathy, unspecified] Onset: 3 07-14-2022 Chronic Other nervous system disorders (20 sources) Polyneuropathy; Translations: [Other specified polyneuropathies] Onset: 4 Chronic Other nervous system disorders (20 sources) Chronic pain syndrome; Translations: [Chronic pain syndrome] Onset: 1 02-27-2023 Chronic Other nervous system disorders (1 source) Neuropathy; Translations: [Polyneuropathy, unspecified] 11-27-2023 Chronic Other nervous system disorders (1 source) Other acute postprocedural pain; Translations: [Postoperative pain] Onset: 5 Episodic Residual codes; unclassified (18 sources) Hypersomnia; Translations: [Hypersomnia, unspecified] Onset: 4 11-17-2023 Chronic Residual codes; unclassified (20 sources) Obstructive sleep apnea syndrome; Translations: [Obstructive sleep apnea (adult) (pediatric)] Onset: 4 11-17-2023 Chronic Residual codes; unclassified (1 source) Sleep disorder, unspecified; Translations: [SLEEP DISORDER UNSPECIFIED] Onset: 2 Episodic Rheumatoid arthritis and related disease (20 sources) Rheumatoid arthritis of multiple joints; Translations: [Rheumatoid arthritis without rheumatoid factor, multiple sites] Onset: 3 02-27-2023 Chronic Screening and history of mental health and substance abuse codes (1 source) Personal history of nicotine dependence; Translations: [PERSONAL HISTORY OF NICOTINE DEPEND] Onset: 2 Episodic Thyroid disorders (20 sources) Hypothyroidism; Translations: [Hypothyroidism, unspecified] Onset: 2 01-17-2012 Chronic Unclassified (3 sources) 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 Onset: 5 08-21-2024 Past or Other Problems Problem Classification Problem Date Documented Date Episodic/Chronic Malaise and fatigue (20 sources) Fatigue; Translations: [Other fatigue] Onset: 01-17-2012 01-17-2012 Episodic Mycoses (20 sources) Onychomycosis; Translations: [Tinea unguium] Onset: 12-14-2022 12-14-2022 Episodic Other acquired deformities (20 sources) Irvin legged; Translations: [Varus deformity, not elsewhere classified, right knee] Onset: 04-03-2023 04-03-2023 Episodic Other aftercare (20 sources) Patient encounter status; Translations: [continuous churn buttermaker (current) use of non-steroidal anti-inflammatories (NSAID)] Onset: 07-14-2022 07-14-2022 Episodic Other aftercare (20 sources) H/O: high risk medication; Translations: [Other machine long goods helper (current) drug therapy] Onset: 07-14-2022 07-14-2022 Episodic Other aftercare (20 sources) Drug therapy finding; Translations: [Other jail (current) drug therapy] Onset: 07-14-2022 07-14-2022 Episodic Other aftercare (4 sources) Encounter for therapeutic drug level monitoring; Translations: [ENC THERAPEUTC DRUG LEVL MONITORING] Onset: 12-28-2021 Episodic Other aftercare (20 sources) retirement current use of non-steroidal anti-inflammatory drug; Translations: [continuous churn buttermaker (current) use of non-steroidal anti-inflammatories (NSAID)] Onset: 07-14-2022 07-14-2022 Episodic Other and unspecified benign neoplasm (20 sources) Benign lipomatous tumor; Translations: [Benign lipomatous neoplasm, unspecified] Onset: 03-14-2016 02-28-2023 Episodic Other and unspecified benign neoplasm (20 sources) Lipoma of lower back; Translations: [Benign lipomatous neoplasm of skin and subcutaneous tissue of trunk] Onset: 02-28-2023 02-28-2023 Episodic Other connective tissue disease (20 sources) Pain of bilateral hands; Translations: [Pain in right hand] Onset: 07-14-2022 07-14-2022 Episodic Other connective tissue disease (20 sources) Bilateral chronic pain of feet; Translations: [Pain in right foot] Onset: 02-27-2023 02-27-2023 Episodic Other connective tissue disease (20 sources) Plantar fasciitis; Translations: [Plantar fascial fibromatosis] Onset: 12-14-2022 Resolved: 08-28-2024 12-14-2022 Episodic Other connective tissue disease (20 sources) Pain in left foot; Translations: [Pain in left foot] Onset: 12-14-2022 Resolved: 08-28-2024 12-14-2022 Episodic Other ear and sense organ disorders (20 sources) Tinnitus of left ear; Translations: [Tinnitus, left ear] Onset: 07-28-2016 Resolved: 08-28-2024 03-14-2023 Episodic Other hematologic conditions (1 source) Elevated erythrocyte sedimentation rate; Translations: [Elevated sed rate] Onset: 11-27-2023 Episodic Other lower respiratory disease (18 sources) Hypoxia; Translations: [Hypoxemia] Onset: 11-20-2023 11-20-2023 Episodic Other nervous system disorders (18 sources) Paresthesia; Translations: [Paresthesia of skin] Onset: 11-17-2023 11-17-2023 Episodic Other nervous system disorders (18 sources) Ataxia; Translations: [Ataxia, unspecified] Onset: 11-17-2023 11-17-2023 Episodic Other non-traumatic joint disorders (20 sources) Bilateral chronic pain of upper limbs; Translations: [Pain in right shoulder] Onset: 07-14-2022 07-14-2022 Episodic Other non-traumatic joint disorders (20 sources) Pain in right knee; Translations: [Pain in joint, lower leg] Onset: 07-14-2022 07-14-2022 Episodic Other non-traumatic joint disorders (20 sources) Effusion of right knee joint; Translations: [Effusion, right knee] Onset: 03-01-2023 03-01-2023 Episodic Other screening for suspected conditions (not mental disorders or infectious disease) (6 sources) Other specified abnormal findings of blood chemistry; Translations: [Other abnormal blood chemistry] Onset: 11-27-2023 02-27-2023 Episodic Residual codes; unclassified (20 sources) Sleep dysfunction with arousal disturbance; Translations: [Other sleep disorders] Onset: 01-17-2012 Resolved: 08-28-2024 02-28-2023 Chronic Residual codes; unclassified (20 sources) Sleep disorder; Translations: [Sleep disorder, unspecified] Onset: 01-17-2012 01-17-2012 Episodic Residual codes; unclassified (20 sources) FH: Rheumatoid arthritis; Translations: [Family history of arthritis] Onset: 07-14-2022 07-14-2022 Episodic Residual codes; unclassified (20 sources) Family history of systemic lupus erythematosus; Translations: [Family history of other diseases of the musculoskeletal system and connective tissue] Onset: 07-14-2022 07-14-2022 Episodic Residual codes; unclassified (20 sources) Finding related to status of agreement with prior finding; Translations: [Violation of controlled substance agreement] Onset: 02-28-2023 Resolved: 01-08-2024 02-28-2023 Episodic Residual codes; unclassified (20 sources) Insomnia; Translations: [Insomnia, unspecified] Onset: 05-06-2015 Resolved: 08-28-2024 04-09-2024 Episodic Residual codes; unclassified (18 sources) Sleep deprivation; Translations: [Sleep deprivation] Onset: 11-20-2023 Resolved: 08-28-2024 11-20-2023 Episodic Spondylosis; intervertebral disc disorders; other back problems (20 sources) Neck pain; Translations: [Cervicalgia] Onset: 07-14-2022 07-14-2022 Episodic Substance-related disorders (20 sources) Nondependent cannabis abuse, episodic; Translations: [Cannabis use, unspecified, uncomplicated] Onset: 02-28-2023 Resolved: 08-28-2024 02-28-2023 Episodic Thyroid disorders (20 sources) Sick-euthyroid syndrome; Translations: [Sick-euthyroid syndrome] Onset: 05-06-2015 02-28-2023 Episodic Unclassified (1 source) Preprocedural examination done 09-13-2024 Results Test Name Value Interpretation Reference Range Facility ANES POSTPROC EVALon 025 ANES POSTPROC EVAL HNO ID: [id number] Author: KEEGAN BOYCE II, DO Service: Anesthesiology Author Type: Anesthesiologist Type: Anesthesia Postprocedure Evaluation Filed: 10/03/2024 18:45 Note Text: POST ANESTHESIA EVALUATION NOTE : 1960 Procedure Summary Date: 10/03/24 Room / Location: [address] Anesthesia Start: 1036 Anesthesia Stop: 1348 Procedure: ARTHROPLASTY REPLACE JOINT TOTAL KNEE (Right: Knee) Diagnosis: Primary osteoarthritis of right knee (Primary osteoarthritis of right knee [M17.11]) Surgeons: José Luis Sigala MD Responsible Provider: Keegan Boyce II, DO Anesthesia Type: general ASA Status: 2 Anesthesia Type: general Airway Type: ETT Last Vitals Vitals Value Taken Time BP 127/81 10/03/24 1640 Temp 36.8 ?C (98.2 ?F) 10/03/24 1345 HR SpO2 96 10/03/24 1345 Resp 16 10/03/24 1440 SpO2 96 % 10/03/24 1640 Post Anesthesia Patient Status Patient Evaluation: PACU. PACU/ICU Patient Condition: stable. Neurological Status: aware and responsive. Pulmonary Status: breathing comfortably on room air Airway Control: returned to baseline unsupported. Cardiovascular Status: stable. Pain Management: clinically adequate Postoperative Hydration: acceptable. Intraoperative Events: no significant anesthesia events Post Operative Nausea/Vomiting Status: no significant post operative nausea or vomiting Recommendation: continue current plan of care. Anesthesia Observations No Documentation SIGNATURE: Keegan Boyce II, DO PATIENT NAME: Samantha Fraser DATE: October 03, 2024 TIME: 6:45 PM CSN: [id number] [facility] ANES PRE-OPon 10-03-2024 ANES PRE-OP HNO ID: [id number] Author: KEEGAN BOYCE II, DO Service: Anesthesiology Author Type: Anesthesiologist Type: Anesthesia Preprocedure Evaluation Filed: 10/03/2024 08:50 Note Text: ANESTHESIOLOGY DAY OF SURGERY NOTE : 1960 Procedure Information Date/Time: 10/03/24 1035 Procedure: ARTHROPLASTY REPLACE JOINT TOTAL KNEE (Right: Knee) Location: [address] Surgeons: José Luis Sigala MD Estimated body mass index is 26.7 kg/m? as calculated from the following: Height as of 09/13/24: 175.3 cm (5' 9 ). Weight as of 09/13/24: 82 kg (180 lb 12.4 oz). Most recent hematocrit and potassium results: Hematocrit 47.1 09/13/2024 Potassium 4.7 09/13/2024 Relevant Problems ANESTHESIA (+) ANDREW (obstructive sleep apnea) ENDO (+) Hypothyroid GI (+) Gastroesophageal reflux disease -RENAL (+) Chronic kidney disease, stage 2 (mild) PULMONARY (+) ANDREW (obstructive sleep apnea) Other (+) Inflammatory arthritis (+) Primary osteoarthritis of right knee (+) Rheumatoid arthritis involving multiple sites with positive rheumatoid factor (HCC) (+) Secondary osteoarthritis of multiple sites I - PHYSICAL EVALUATION AIRWAY Patient intubated: No. Tracheostomy tube not present Mallampati: III. TM distance: >3 FB. Neck ROM: limited extension. Mouth opening: adequate. Short neck: no. Thick neck: no Eckert present: yes DENTAL Dental findings: teeth intact. Additional exam findings: yes. CARDIOVASCULAR Rhythm: regular Rate: normal PULMONARY Breath sounds clear to auscultation. II - ANESTHESIA PLAN ASA Score: 2 Anesthetic Plan: general Airway type: ETT The patient is not a current smoker. NPO Status: adequate Beta Acosta Monitoring Plan Monitoring plan: standard ASA. Post Procedure Analgesic Plan Postoperative analgesic plan: parenteral or oral opioids and peripheral nerve block. Informed Consent Anesthetic risks, benefits, alternatives, personnel and consent discussed: yes. Patient / Responsible Constitution Party agrees to proceed: yes Patient / Surrogate agrees to blood products: Yes No vitals data found for the desired time range. Facility-Administered Medications as of 10/03/2024 Medication Dose Route Frequency - lidocaine (PF) 10 mg/mL (1 %) 1-2 mg injection (XYLOCAINE) 0.1-0.2 mL INTRADERMAL PRN - lactated ringers iv infusion 5-30 mL/hr INTRAVENOUS CONTINUOUS - NaCl 0.9% iv flush bag 20 mL INTRAVENOUS PRN - ceFAZolin 2 g in dextrose (iso-osmotic) 50 mL (ANCEF,KEFZOL) 2 g INTRAVENOUS Pre-Op Once - tranexamic acid (CYKLOKAPRON) in NaCl 0.7% 1,000 mg 100 mL 1,000 mg INTRAVENOUS Pre-Op Once - tranexamic acid (CYKLOKAPRON) in NaCl 0.7% 1,000 mg 100 mL 1,000 mg INTRAVENOUS ONCE - acetaminophen 1,000 mg tab(s) (TYLENOL) 1,000 mg ORAL Pre-Op Once Outpatient Medications as of 10/03/2024 Medication Sig - cyanocobalamin (VITAMIN B-12) 100 mcg tab Take 100 mcg by mouth once daily. - omeprazole (PRILOSEC) 40 mg capsule Take 40 mg by mouth. - thiamine (VITAMIN B1) 100 mg tablet Take 1 tablet by mouth every afternoon. - levothyroxine (SYNTHROID) 75 mcg tablet Take 1 tablet by mouth once daily. - Biotin 10 mg tab Take 1 tablet by mouth two times a day. - famotidine (PEPCID) 40 mg tablet Take 40 mg by mouth two times a day. - nortriptyline (PAMELOR) 25 mg capsule Take 50 mg by mouth daily at bedtime. - hydrOXYchloroQUINE (PLAQUENIL) 200 mg tablet TAKE 2 TABLETS ONCE DAILY WITH FOOD SUNSCREEN WHEN OUTDOORS SEE OPHTHAMOLOGY EVERY 2-6 MONTHS ON MED - pregabalin (LYRICA) 100 mg capsule Take 1cap by mouth 3times a day - Melatonin 5 mg cap 1 (one) time each day at the same time. - atorvastatin (LIPITOR) 40 mg tablet TAKE 1 TABLET BY MOUTH EVERY DAY FOR 30 DAYS - eszopiclone (LUNESTA) 3 mg tab TAKE 1 TABLET IMMEDIATELY BEFORE BEDTIME ONCE A DAY FOR 30 DAYS - predniSONE (DELTASONE) 5 mg tablet Day 1=6tabs with food, Day 2=5tabs, Day 3=4tabs, Day 4=3tabs, Day 5=2tabs, Day 6=1tab, No NSAIDs on med I have interviewed and examined the patient. I have reviewed the medical record and/or the pre-anesthesia evaluation, pertinent labs, and test results. This contains updated information obtained within 48 hours of Surgery/Procedure. SIGNATURE: Keegan Boyce II, DO PATIENT NAME: Samantha Fraser DATE: October 03, 2024 TIME: 8:42 AM CSN: [id number] [facility] NURSING PROGon 10-03-2024 NURSING PROG HNO ID: [id number] Author: MERARY ESPARZA, DIETER Service: ? Author Type: Registered Nurse Type: Nursing Progress Note Filed: 10/03/2024 18:57 Note Text: Pt cleared by PT to go home and walked well with walker and used steps, Shen PA cleared pt to be d/c home after bladder scan results of 480mls and 420mls, pt's suprapubic feels soft and undescended. Pt d/c home and understood directions of drinking fluids and must urinate before going to bed or will have to go to the ER to be straight cathed, he feels he will have no problems once he gets home. IV d/c , pt d/c home. [facility] OPERATIVE NOon 10-03-2024 OPERATIVE NO HNO ID: [id number] Author: JOSÉ LUIS SIGALA MD Service: Orthopaedic Surgery Author Type: Physician Type: Operative Report Filed: 10/03/2024 13:23 Note Text: [facility] OPERATIVE REPORT PATIENT NAME: Samantha Fraser AGE: [age] year old LOG ID: [id number] Surgery Date: 10/03/2024 SURGEON: José Luis Sigala MD USED BUILDING MATERIALS YARD WORKER: Shen Christine PA-C, SA, her assistance consisted of assistance with retraction, positioning and closing of the wound No qualified resident physicians were available to participate in the case. PROCEDURE:RIGHT TOTAL KNEE REPLACEMENT-POSTERIOR STABILIZED Anesthesia: Choice - Anesthesia Consult Preop Diagnosis: Pre-Op Diagnosis Codes: * Primary osteoarthritis of right knee [M17.11] Postop Diagnosis: Same as Pre-Op Diagnosis Codes: * Primary osteoarthritis of right knee [M17.11] BMI: Estimated body mass index is 26.7 kg/m? as calculated from the following: Height as of 09/13/24: 175.3 cm (5' 9 ). Weight as of 09/13/24: 82 kg (180 lb 12.4 oz). INDICATIONS: This is a 64 year old year old male with osteoarthritis of the right knee.He was having severe pain globally in the right knee. Nonoperative management with anti-inflammatory and analgesic medication, cortisone and lubricant injections, activity modification, use of ambulatory aides and physical therapy has been exhausted. The pain has started to interfere with activities of daily living. The decision was made to proceed with a total knee arthroplasty. Risks, benefits, and alternatives were discussed. He expressed understanding and consented to the procedure as outlined above. The patient was seen by [facility] Internal Medicine for pre-operative optimization. Pilar-operative blood management and the potential for blood transfusion were discussed with risks and options clearly outlined. The patient has consented to the use of banked allogenic blood if medically necessary. IMPLANTS: [employer] Total Knee System SIZE TYPE Posterior Stabilized Femur 4 Anny Tibia 4 [place] Patella 36 mm Anny Polyethylene 9mm CS Anny OPERATIVE FINDINGS: There was complete loss of cartilaginous surface from the patellofemoral, medial and lateral compartments of the right knee. OPERATIVE PROCEDURE: The patient was identified and brought into the Operating Room by the anesthesia and nursing team. Anesthesia was successfully performed. The patient was then positioned supine on the operating room table. Intravenous antibiotic prophylaxis dosing was confirmed. The right lower extremity was then prepped and draped in the usual sterile fashion with Chloraprep scrub. Tranexamic acid was given for blood conservation. A surgical time-out was performed immediately preceding the incision with all personnel in the operating room; the patient identity was again confirmed, the surgical site and extremity were identified and confirmed, X-rays were reviewed, and availability of the appropriate surgical equipment was established. The knee was approached through a 5 inch midline incision. Dissection was carried down. The extensor mechanism was opened in modified median parapatellar fashion. The kneecap was identified and everted. We debrided circumferentially about the kneecap removing the synovium and releasing laterally. We then osteotomized the undersurface of the patella and utilized a 36 mm patellar button, which was medialized for better patellar tracking. A partial lateral facetectomy was also accomplished. Attention was then turned to the knee and a total synovectomy was accomplished. We then removed osteophytes circumferentially about the medial and lateral femoral condyle. The knee was flexed to 90 degrees and an intramedullary guide was inserted, which allowed us then to cut the distal femur at 4-5 degrees from the long axis of the femur. We then brought the knee into extension and osteotomized the proximal tibia parallel to the distal femoral cut. With this accomplished, we then debrided the area and removed the remains of the medial meniscus and the posterior horn of the medial meniscus and remains of the cruciate ligaments and the lateral meniscus. We then put in our spacer block, which showed that the extension gap was in neutral valgus-varus position. We flexed the knee to 90 degrees and inserted the tensionmeter. We measured the femur prosthetic size as a 4 anny. We then put a size [address] allowing us to osteotomize anteriorly, posteriorly, and anterior and posterior chamfer cuts. We then brought the tibia forward and we prepared the tibia for a size 4 tibia and this was pinned into place. The tibial insert size 12 was inserted and we had excellent flexion and extension gap equalization. Trial prosthesis was then removed. The tourniquet was deflated and hemostasis was obtained. We then jet lavaged and dried the bone and vacuum mixed the cement. (more content not included)... [facility] THERAPY NTon 10-03-2024 THERAPY NT HNO ID: [id number] Author: MARII SEO, PT, DPT Service: Physical Therapy Author Type: Physical Therapist Type: Therapy (PT/OT/Speech/Resp) Filed: 10/03/2024 17:03 Note Text: Physical Therapy Evaluation Summary SERVICE DATE: 10/03/2024 SERVICE TIME: 1450 to 1700 ROOM: [address] ([facility]) PT 6 Clicks Score: 22 DISCHARGE RECOMMENDATIONS Outpatient PT ASSESSMENT Response to Therapy Interventions: Good Participation in Activities, On-Track to Achieve Discharge Goals Attempted initial supine<>sit transfer and while sitting EOB, pt began to experience nausea and lightheadedness. Vitals assessed and BP dropped to 99/55. Returned to bed with assistance of nursing. With second attempt, able to gait and stairs successfully. PRECAUTIONS Total Knee Replacement CURRENT HOSPITAL COURSE R TKR HOME LIVING Patient Lives With: Spouse Assistance Available: 24-Hour Entry To Home: Stairs, With Rail Number Of Stairs Into Home: 3 Number Of Stairs To Bed/Bath: 12 (Pt planning to stay on first floor tonight.) Tub/Shower Type: walk in shower Laundry: Spouse will assist. Equipment Owned: Cane, Walker- Standard PRIOR FUNCTIONAL LEVEL Within Functional Limits SUBJECTIVE R TKR THERAPY DIAGNOSIS Abnormalities of gait and mobility-other TREATMENT INTERVENTIONS Evaluation, Therapeutic Exercise (06961), Gait Training (96053) Timed Code Treatment (minutes): 60 Skilled Treatment Time (minutes): 75 TRAINING AND EDUCATION PROVIDED Assistive Device Use, Bed Mobility, Energy Conservation, Equipment, Exercise Program, Expected Functional Level, Falls Prevention, Gait Pattern, Reduction of Deviations, Handout Issued, Home Safety, Home Set-up/Modifications, Patient Exercise/Therapy Program Support Needs, Positioning, Precautions/Restrictio ns, Pre-gait Activities, Role of Physical Therapy, Stair Navigation, Transfers THERAPEUTIC SKILLS USED Activity Dosing, Assessment of Tolerance Including Vitals Response to Activity, Contra-lateral Facilitation, Cues for Sequencing/Proper Technique for Activity, Cuing Tactile, Cuing Verbal, Cuing Visual, Facilitation of Joint Range of Motion, Family Training, Movement Facilitation, Muscle Activation Facilitation, Teach-Back for Education, Repetitive Task Learning FUNCTIONAL STATUS Bed Mobility Supine To Sit: Independent Transfers Sit To Stand: Modified Independent Stand To Sit: Modified Independent Bed to Chair Gait Contact Guard Assistance Gait Device: Standard Walker Gait Distance (feet): 200 Stairs Contact Guard Assistance Stairs Device: Cane, Rail Number of Stairs: 4 GOALS Patient will demonstrate progress with functional mobility to allow safe discharge to home with available support and/or physical assistance. Able to Perform HEP with: Independent Transfer Supine to/from Sit with: Independent Transfer Sit to/from Stand with: Modified Independent Ambulate with: Contact Guard Assistance Distance: 25 Device: Standard Walker Ambulate Up and Down Steps with: Contact Guard Assistance Number of Steps: 4 Device: Cane, Rail ROM: 0-90 Progress Toward Goals: Progressing as expected PLAN PT Frequency: Discontinue Therapy Services Reasons Therapy Services Discontinued: Goals met SIGNATURE: Marii Seo, PT, DPT PATIENT NAME: Samantha Fraser DATE: October 03, 2024 TIME: 5:03 PM [facility] Bacteria Ur Culton Bacteria identified Cx Nom (U) ORGANISM ID: 1 <10,000 CFU/ml Normal urogenital lobo [facility] Comment on above: Performed By: #### 6 30-4 ####[facility] LABCLIA [id number] [place] [address] [place] [place] Basic metabolic 2000 panelon 09-13-2024 Anion gap [Moles/Vol] 11 mmol/L Normal 8-15 [facility] Comment on above: Order Comment: Speci men Type: BLOOD SPECIMENOrdering Facility: [facility] [place] Address: [address] [place] [address] Performed By: #### 2 4321-2 ####[facility] LABCLIA [id number] [place] [address] [place] Calcium [Mass/Vol] 10.0 mg/dL Normal 8.5-10.2 [facility] Comment on above: Order Comment: Speci men Type: BLOOD SPECIMENOrdering Facility: [facility] [place] Address: [address] [place] [address] Performed By: #### 2 4321-2 ####[facility] LABCLIA [id number] [place] [id number] [place] Chloride [Moles/Vol] 102 mmol/L Normal 98-107 [facility] Comment on above: Order Comment: Speci men Type: BLOOD SPECIMENOrdering Facility: [facility] [place] Address: [address] [place] [address] Performed By: #### 2 4321-2 ####[facility] LABCLIA [id number] [place] [address] [place] CO2 [Moles/Vol] 27 mmol/L Normal 22-30 [facility] Comment on above: Order Comment: Speci men Type: BLOOD SPECIMENOrdering Facility: [facility] [place] Address: [address] [place] [address] Performed By: #### 2 4321-2 ####[facility] LABCLIA [id number] [place] [address] [place] Creatinine [Mass/Vol] 0.97 mg/dL Normal 0.73-1.22 [facility] Comment on above: Order Comment: Speci men Type: BLOOD SPECIMENOrdering Facility: [facility] [place] Address: [address] [place] [address] Performed By: #### 2 4321-2 ####[facility] LABCLIA [id number] [place] [id number] [place] Creatinine and Glomerular filtration rate.predicted panel (S/P/Bld) 88 mL/min/1.73m??? Normal >=60 [facility] Comment on above: Order Comment: Speci men Type: BLOOD SPECIMENOrdering Facility: [facility] [place] Address: [address] [place] [address] Result Comment: Lindsay mated Glomerular Filtration Rate (eGFR) is calculated using the 2021 CKD-EPI creatinine equation. This equation utilizes serum creatinine, sex, and age as parameters. The creatinine assay has traceable calibration to isotope dilution-mass spectrometry. Refer to KDIGO guidelines for clinical interpretation. In patients with unstable renal function, e.g. those with acute kidney injury, the eGFR may not accurately reflect actual GFR. Performed By: #### 2 4321-2 ####[facility] LABIA [id number] [address] [address] [place] Glucose [Mass/Vol] 95 mg/dL Normal 74-99 [facility] Comment on above: Order Comment: Lon jang Type: BLOOD SPECIMENOrdering Facility: [facility] [place] Address: [address] [place] [address] Result Comment: The [place] Diabetes Association (ADA) provides guidance for cutoff values for fasting glucose and random glucose. The ADA defines fasting as no caloric intake for at least 8 hours. Fasting plasma glucose results between 100 to 125 mg/dL indicate increased risk for diabetes (prediabetes). Fasting plasma glucose results greater than or equal to 126 mg/dL meet the criteria for diagnosis of diabetes. In the absence of unequivocal hyperglycemia, results should be confirmed by repeat testing. In a patient with classic symptoms of hyperglycemia or hyperglycemic crisis, random plasma glucose results greater than or equal to 200 mg/dL meet the criteria for diagnosis of diabetes. Reference: Standards of Medical Care in Diabetes 2016, [place] [employer] Association. Diabetes Care. 2016.39(Suppl 1). Performed By: #### 2 4321-2 ####[facility] LABIA [id number] [address] [address] [place] Potassium [Moles/Vol] 4.7 mmol/L Normal 3.7-5.1 [facility] Comment on above: Order Comment: Lon jang Type: BLOOD SPECIMENOrdering Facility: [facility] [place] Address: [address] [place] [address] Performed By: #### 2 4321-2 ####[facility] LABCLIA [id number] [address] [address] [place] Sodium [Moles/Vol] 140 mmol/L Normal 136-144 [facility] Comment on above: Order Comment: Speci men Type: BLOOD SPECIMENOrdering Facility: [facility] [place] Address: [address] [place] [address] Performed By: #### 2 4321-2 ####[facility] LABCLIA [id number] [address] [address] [place] Urea nitrogen [Mass/Vol] 15 mg/dL Normal 9-24 [facility] Comment on above: Order Comment: Speci men Type: BLOOD SPECIMENOrdering Facility: [facility] [place] Address: [address] [place] [address] Performed By: #### 2 4321-2 ####[facility] LABIA [id number] [place] [address] [place] CBC W Auto Differential pane l (Bld)on 09-13-2024 Basophils (Bld) [#/Vol] 10*3/uL Normal <0.11 [facility] Comment on above: Order Comment: Speci men Type: BLOOD SPECIMENOrdering Facility: [facility] [place] Address: [address] [place] [address] Performed By: #### 5 7021-8 ####[facility] LABIA [id number] [place] [address] [place] Basophils/100 WBC (Bld) 0.2 % Normal [facility] Comment on above: Order Comment: Speci men Type: BLOOD SPECIMENOrdering Facility: [facility] [place] Address: [address] [place] [address] Performed By: #### 5 7021-8 ####[facility] LABIA [id number] [place] [id number] [place] Differential cell count method Nom (Bld) Auto Normal [facility] Comment on above: Order Comment: Speci men Type: BLOOD SPECIMENOrdering Facility: [facility] [place] Address: [address] [place] [address] Performed By: #### 5 7021-8 ####[facility] LABCLIA [id number] [address], [facility] [place] Eosinophils (Bld) [#/Vol] 0.12 10*3/uL Normal <0.46 [facility] Comment on above: Order Comment: Speci men Type: BLOOD SPECIMENOrdering Facility: [facility] [place] Address: [address] [place] [address] Performed By: #### 5 7021-8 ####[facility] LABCLIA [id number] [address], [place] [address] [place] Eosinophils/100 WBC (Bld) 1.4 % Normal [facility] Comment on above: Order Comment: Speci men Type: BLOOD SPECIMENOrdering Facility: [facility] [place] Address: [address] [place] [address] Performed By: #### 5 7021-8 ####[facility] LABCLIA [id number] [address], [place] [address] [place] Erythrocyte distribution width (RBC) [Ratio] 13.7 % Normal 11.5-15.0 [facility] Comment on above: Order Comment: Speci men Type: BLOOD SPECIMENOrdering Facility: [facility] [place] Address: [address] [place] [address] Performed By: #### 5 7021-8 ####[facility] LABCLIA [id number] [address], [place] [address] [place] Hematocrit (Bld) [Volume fraction] 47.1 % Normal 39.0-51.0 [facility] Comment on above: Order Comment: Speci men Type: BLOOD SPECIMENOrdering Facility: [facility] [place] Address: [address] [place] [address] Performed By: #### 5 7021-8 ####[facility] LABCLIA [id number] [address], [facility]95 [place] Hemoglobin (Bld) [Mass/Vol] 15.7 g/dL Normal 13.0-17.0 [facility] Comment on above: Order Comment: Speci men Type: BLOOD SPECIMENOrdering Facility: [facility] [place] Address: [address] [place] [address] Performed By: #### 5 7021-8 ####[facility] LABCLIA [id number] [place] [id number] [place] Immature granulocytes (Bld) [#/Vol] 0.04 10*3/uL Normal <0.10 [facility] Comment on above: Order Comment: Speci men Type: BLOOD SPECIMENOrdering Facility: [facility] [place] Address: [address] [place] [address] Performed By: #### 5 7021-8 ####[facility] LABCLIA [id number] [place] [address] [place] Immature granulocytes/100 WBC (Bld) 0.5 % Normal [facility] Comment on above: Order Comment: Speci men Type: BLOOD SPECIMENOrdering Facility: [facility] [place] Address: [address] [place] [address] Performed By: #### 5 7021-8 ####[facility] LABCLIA [id number] [place] [address] [place] Lymphocytes (Bld) [#/Vol] 1.88 10*3/uL Normal 1.00-4.00 [facility] Comment on above: Order Comment: Speci men Type: BLOOD SPECIMENOrdering Facility: [facility] [place] Address: [address] [place] [address] Performed By: #### 5 7021-8 ####[facility] LABCLIA [id number] [place] [address] [place] Lymphocytes/100 WBC (Bld) 21.2 % Normal [facility] Comment on above: Order Comment: Speci men Type: BLOOD SPECIMENOrdering Facility: [facility] [place] Address: [address] [place] [address] Performed By: #### 5 7021-8 ####[facility] LABIA [id number] [place] [address] [place] MCH (RBC) [Entitic mass] 31.2 pg Normal 26.0-34.0 [facility] Comment on above: Order Comment: Speci men Type: BLOOD SPECIMENOrdering Facility: [facility] [place] Address: [address] [place] [address] Performed By: #### 5 7021-8 ####[facility] LABIA [id number] [place] [address] [place] MCHC (RBC) [Mass/Vol] 33.3 g/dL Normal 30.5-36.0 [facility] Comment on above: Order Comment: Speci men Type: BLOOD SPECIMENOrdering Facility: [facility] [place] Address: [address] [place] [address] Performed By: #### 5 7021-8 ####[facility] [id number] [place] [address] [place] MCV (RBC) [Entitic vol] 93.6 fL Normal 80.0-100.0 [facility] Comment on above: Order Comment: Speci men Type: BLOOD SPECIMENOrdering Facility: [facility] [place] Address: [address] [place] [address] Performed By: #### 5 7021-8 ####[facility] LAB[facility] [id number] [place] [address] [place] Monocytes (Bld) [#/Vol] 0.86 10*3/uL Normal <0.87 [facility] Comment on above: Order Comment: Speci men Type: BLOOD SPECIMENOrdering Facility: [facility] [place] Address: [address] [place] [address] Performed By: #### 5 7021-8 ####[facility] LAB[facility] [id number] [place] [address] [place] Monocytes/100 WBC (Bld) 9.7 % Normal [facility] Comment on above: Order Comment: Speci men Type: BLOOD SPECIMENOrdering Facility: [facility] [place] Address: [address] [place] [address] Performed By: #### 5 7021-8 ####[facility] LABCLIA [id number] [place] [address] [place] Neutrophils (Bld) [#/Vol] 5.95 10*3/uL Normal 1.45-7.50 [facility] Comment on above: Order Comment: Speci men Type: BLOOD SPECIMENOrdering Facility: [facility] [place] Address: [address] [place] [address] Performed By: #### 5 7021-8 ####[facility] LABCLIA [id number] [place] [address] [place] Neutrophils/100 WBC (Bld) 67.0 % Normal [facility] Comment on above: Order Comment: Speci men Type: BLOOD SPECIMENOrdering Facility: [facility] [place] Address: [address] [place] [address] Performed By: #### 5 7021-8 ####[facility] LABCLIA [id number] [place] [address] [place] Nucleated RBC (Bld) [#/Vol] 10*3/uL Normal <0.01 [facility] Comment on above: Order Comment: Speci men Type: BLOOD SPECIMENOrdering Facility: [facility] [place] Address: [address] [place] [address] Performed By: #### 5 7021-8 ####[facility] LABCLIA [id number] [place] [address] [place] Nucleated RBC/100 WBC (Bld) [Ratio] 0.0 /100 WBC Normal [facility] Comment on above: Order Comment: Speci men Type: BLOOD SPECIMENOrdering Facility: [facility] [place] Address: [address] [place] [address] Performed By: #### 5 7021-8 ####[facility] LABCLIA [id number] [address] [address] [place] Platelet mean volume (Bld) [Entitic vol] 9.2 fL Normal 9.0-12.7 [facility] Comment on above: Order Comment: Speci men Type: BLOOD SPECIMENOrdering Facility: [facility] [place] Address: [address] [place] [address] Performed By: #### 5 7021-8 ####[facility] LABCLIA [id number] [place] [address] [place] Platelets (Bld) [#/Vol] 271 10*3/uL Normal 150-400 [facility] Comment on above: Order Comment: Speci men Type: BLOOD SPECIMENOrdering Facility: [facility] [place] Address: [address] [place] [address] Performed By: #### 5 7021-8 ####[facility] LABCLIA [id number] [address] [address] [place] RBC (Bld) [#/Vol] 5.03 10*6/uL Normal 4.20-6.00 [facility] Comment on above: Order Comment: Speci men Type: BLOOD SPECIMENOrdering Facility: [facility] [place] Address: [address] [place] [address] Performed By: #### 5 7021-8 ####[facility] LABCLIA [id number] [address] [address] [place] WBC (Bld) [#/Vol] 8.87 10*3/uL Normal 3.70-11.00 [facility] Comment on above: Order Comment: Speci men Type: BLOOD SPECIMENOrdering Facility: [facility] [place] Address: [address] [place] [address] Performed By: #### 5 7021-8 ####[facility] LABCLIA [id number] FITO LORENZO [id number] [place], [place] [id number] [facility] CNOVon 09-13-2024 CNOV Office Visit (LOORRM ) SAMANTHA FRASER ([id number]) 1960 M Date Time Provider Department 09/13/24 1:00 PM SHNE CHRSITINEORRAbigail During your visit today, we recorded the following information about you: Shen Christine PA-C 09/13/2024 1:39 PM Signed CONSULT ORTHOPAEDIC: KNEE PRIMARY CARE PHYSICIAN: El Bush MD, MD REFERRING PROVIDER: José Luis Gutierrez[address] [address] ASSESSMENT AND PLAN Impression: Right Knee Severe Degenerative Osteoarthritis, Primary Diagnoses: (M17.11) Primary osteoarthritis of right knee (primary encounter diagnosis) (M05.79) Rheumatoid arthritis involving multiple sites with positive rheumatoid factor (HCC) Samantha Fraser has radiograph and physical exam evidence of degenerative joint disease and wishes to consider options before making a decision for surgery. This patient appears to have sufficient symptoms to warrant surgical intervention and is an appropriate candidate for right Primary Total Knee Arthroplasty as evidenced by six months of unsuccessful non-operative treatment as outlined in the HPI below and progressive symptoms. Progressive Symptoms Include: Pain impacting sleep or causing fatigue Pain impacting work Pain worsened by weight bearing Pain effecting living situation Pain limiting ability to stay fit and healthy Unable to ambulate 2 blocks without significant pain and dysfunction . We had a lengthy discussion regarding the risk and benefit of surgery, the alternatives, limitations and personnel involved. These included but were not limited to infection, persistent pain, instability, nerve injury, blood clots, and medical complications. We also discussed the pre-operative course, surgery itself and rehabilitation. Pilar-operative blood management and transfusion issues were discussed, and options clearly outlined. The patient has consented to the use of the banked allogenic blood if medically necessary. The patient has elected to schedule surgery at this time or intends to call the office with a surgical date. Shared decision making occurred while obtaining informed consent. The patient will be scheduled for a pre-operative education class at which time they will have their nasal swab completed and will be given CHG cloths along with the verbal and written instructions for their use. Patient has been instructed and has been scheduled or will call to schedule attendence in one of the total joint perioperative classes offered prior to proceeding with TKA. The patient has been ordered: Office Visit on 09/13/24 acetaminophen (TYLENOL EXTRA STRENGTH) 500 mg tablet cyanocobalamin (VITAMIN B-12) 100 mcg tab No orders placed today. CONSULTS: Patient does not require consults for optimization at this time. Total Joint Arthroplasty: Risk Calculator Samantha Fraser has a 1.86% chance of NOT returning home at discharge for a Primary total Knee replacement. Samantha's estimated Length of Stay is 1 day (Outpatient candidate). Samantha's 30 day chance of readmission is 5.07%. Readmission Probability 5.07 % (within 30 days following surgery) Estimated LOS 1 day Discharge Disposition Probability D/C to Home 98.14 % D/C to SNF 1.86 % These calculations are based on the following factors: - 64 years of age - sex is male - BMI of 25.26 kg/m2 - NarxCare score of 0 - 0 hospitalizations in the last 12 months - no history of heart disease - no history of diabetes - no history of COPD - history of anemia - preoperative ambulation: independent community distances - 3 step(s) to enter home - bed location is on the first floor - bath location is on the first floor - caregiver is consistent - home is not more than 150 miles away - PROMIS-10 Mental Health T score 20-40 - Marital status: Risk Factors for Total Knee Arthroplasty (TKA) Major Risk Factors Obesity normal High: BMI > 40 Moderate: BMI 30-40 Normal: BMI < 30 Diabetes normal High: A1C > 8 Moderate: A1C 7-8 Normal: A1C < 7 Hx of DVT / PE normal High: dx of DVT / PE Normal: no dx of DVT / PE Smoking normal High: Current smoker Normal: Non smoker Narcotics Use Moderate Risk High:NarxCare >=300 Moderate: 100-299 Normal: 0-99 Depression Moderate Risk High: PHQ-9 >14 Moderate: PHQ-9 5-14 Normal: PHQ-9 < 5 Area Deprivation Index (RISA) Moderate Risk High: RISA Score > 75 Moderate: RISA 50-75 Normal: RISA < 50 Area Deprivation Index (RISA) 08/15/2024 RISA Score National Score 64 Patient Health Questionnaire (PHQ-9) 08/15/2024 09/06/2024 PHQ-9 PHQ-2 Score 4 4 PHQ-9 Score 8 8 (0-4) minimal depression, (5-9) mild depression, (10-14) moderate depression, (15-19) moderately severe depression, (20-27) severe depression Bone Density Risk Screen Samantha Fraser is low risk for bone loss based on his age and having no previous diagnoses of osteop (more content not included)... Normal [facility] HISTORY PHYSICALon HISTORY PHYSICAL HNO ID: [id number] Author: JOSÉ LUIS RINALDI APRN.WARP KNITTER Service: ? Author Type: Nurse Practitioner Type: H&P Filed: 09/30/2024 09:07 Note Text: HISTORY AND PHYSICAL EXAMINATION SERVICE DATE: 09/13/2024 SERVICE TIME: 2:17 PM PRIMARY CARE PHYSICIAN: El Bush MD, MD REASON FOR VISIT: Samantha Fraser is a 64 year old male who is scheduled for Right - ARTHROPLASTY REPLACE JOINT TOTAL KNEE at the request of Dr. José Luis Sigala for consultation. My final recommendation will be communicated back to the requesting physician by way of shared medical record or letter. Assessment ANDREW (obstructive sleep apnea) Assessment: patient is not CPAP compliant Mixed hyperlipidemia Assessment: stable with current medication regimen Sleep disorder Assessment: takes lunesta to sleep Gastroesophageal reflux disease Assessment: Managed and stable with current medication. Denies difficulty swallowing or any bleeding. Chronic kidney disease, stage 2 (mild) Assessment: Stable, asymptomatic BUN Date Value Ref Range Status 09/13/2024 15 9 - 24 mg/dL Final 11/27/2023 19 9 - 24 mg/dL Final 05/29/2023 19 9 - 24 mg/dL Final Creatinine Date Value Ref Range Status 09/13/2024 0.97 0.73 - 1.22 mg/dL Final 11/27/2023 1.01 0.73 - 1.22 mg/dL Final 05/29/2023 1.15 0.73 - 1.22 mg/dL Final Hypothyroid Assessment: stable with current medication regimen Rheumatoid arthritis involving multiple sites with positive rheumatoid factor (HCC) Assessment: stable on plaquenil ANESTHESIA FINDINGS: Intubation History: No history of difficult intubation Significant Anesthesia Considerations: none Airway History: No history of difficult airway [place] Activity Status Index: METS: Walk indoors, such as around the house (1.75 METs) Do light work around the house, such as dusting or washing dishes (2.70 METs) Take care of self; that is eating, dressing, bathing, using the toilet (2.75 METs) Walk a block or two on level ground (2.75 METs) Do moderate work around the house, such as vacuuming, sweeping floors, or carrying in groceries (3.50 METs) Do yardwork, such as raking leaves, weeding, or pushing a power mower (4.50 METs) Climb a flight of stairs or walk up a hill (5.50 METs) Participate in moderate recreational activites, such as golf, bowling, dancing, doubles tennis, or throwing a baseball or football (6.00 METs) DASI Score: 29.45 Patient denies any chest pain or undue shortness of breath with the above physical activity. Clinical Frailty Scale: 2. Well STOP-Bang Score: Snores loudly Has or is being treated for high blood pressure Patient over 50 years old Male patient Denies feeling tired, fatigued, or sleepy during the daytime Has not been observed to stop breathing or choking/gasping during sleep BMI less than or equal to 35 kg/m2 Does not have a large neck STOP-Bang Score: 4 [id number] Score: Age: <65 Sex: male CHF history: No Hypertension history: No Stroke/TIA/thromboembo lism history: No Vascular disease history: No Diabetes history: No [id number] Score: 0 ARISCAT Score: Age: 51-80 Preoperative SpO2: >=96% Respiratory infection in the last month: No Duration of surgery: >3 hrs Emergency procedure: No ARISCAT Score: I - PHYSICAL EVALUATION AIRWAY Patient intubated: No. Tracheostomy tube not present Mallampati: II. TM distance: >3 FB. Neck ROM: full ROM without neurological symptoms. Mouth opening: adequate. Short neck: no. Thick neck: no Eckert present: yes Lip Bite Test: II Microretrognathia/Micr onagthia/Recessed Chin: No DENTAL Dental findings: teeth intact. II - ANESTHESIA PLAN Anesthetic plan additional comments: *PACC/TCI - anesthesia choice. Beta Acosta Monitoring Plan Post Procedure Analgesic Plan Prepared for surgery: This patient is optimally prepared for surgery. CONSULTS: Patient does not require consults for optimization at this time. The Following Tests/Procedures Have Been Initiated: Dr. Bernardo anglin Planned Anesthetic: Per anesthesia choice Subjective CHIEF COMPLAINT: Primary osteoarthritis of right knee [M17.11] HPI: Patient is a 64 year old MALE presenting for pre-op evaluation for the above procedure. Patient denies any chest pain, shortness of breath, palpitations, fever/chills, nausea/vomiting, fatigue, or diarrhea. REVIEW OF SYSTEMS: PAIN ASSESSMENT: Pain Pain Level: 5 Pain Location: Knee-Right Description: Stabbing Duration Units: Years Frequency: Continuous General: No weight loss, malaise or fevers. Neuro: No history of TIA's, stroke, LENS GENERATOR tumor, impaired sensorium, hemiplegia, paraplegia or quadraplegia. No neurological symptoms or problems. Respiratory: Positive for ANDREW, former smoker quit in 1999, Negative for Current cough, Pneumonia within 6 weeks (date) Cardiovascular: Positive for: HLD, Negative for CAD, Chest Pain, CHF, DVT/PE GI: Positive for GERD, N (more content not included)... Normal [facility] HbA1c (Bld)on 09-13-2024 Average glucose Estimated from glycated hemoglobin (Bld) [Mass/Vol] 126 mg/dL Normal [facility] Comment on above: Order Comment: Lon jang Type: BLOOD SPECIMENOrdering Facility: [facility] [place] Address: [address] [place] [address] Result Comment: eAG: (Estimated average glucose) is a calculated value from HgbA1c and is kiosk sales representative of the average blood glucose level in the last 2-3 month period. Performed By: #### 5 5454-3 ####[facility] LABCLIA [id number] [place] [address] [place] HbA1c (Bld) [Mass fraction] 6.0 % High 4.3-5.6 [facility] Comment on above: Order Comment: Speci men Type: BLOOD SPECIMENOrdering Facility: [facility] [place] Address: [address] [place] [address] Result Comment: Amer [place] Diabetes Association guidelines indicate that patients with HgbA1c in the range 5.7-6.4% are at increased risk for development of diabetes, and intervention by lifestyle modification may be beneficial. HgbA1c greater or equal to 6.5% is considered diagnostic of diabetes. Performed By: #### 5 5454-3 ####[facility] LABCLIA [id number] [place] [address] [place] STAPHYLOCOCCUS AUREUS AND MR SA SCREEN, PCR, NASALon 09-13-2024 S. aureus and MRSA panel ALPHONSO+probe (Nose) Not detected Normal Not Detected [facility] Comment on above: Order Comment: Speci men Type: SWABOrdering Facility: [facility] [place] Address: [address] [place] [address] Performed By: #### S APCR ####[facility] LABCLIA [id number] [place] [address] [place] Urinalysis complete panel (U )on 09-13-2024 Bacteria LM.HPF (Urine sed) [#/Area] Negative Normal Negative [facility] Comment on above: Order Comment: Speci men Type: URINE SPECIMEN Ordering Facility: [facility] [place] Address: [address] [place] [address] Performed By: #### 2 4356-8 #### [facility] CLIA [id number] [address] [place] [address] [place] Bilirubin Ql (U) Negative Normal Negative [facility] Comment on above: Order Comment: Speci men Type: URINE SPECIMEN Ordering Facility: [facility] [place] Address: [address] [place] [address] Performed By: #### 2 4356-8 #### [facility] CLIA [id number] [address] [place] [address] [place] Clarity (Unsp spec) Clear Normal Clear [facility] Comment on above: Order Comment: Speci men Type: URINE SPECIMEN Ordering Facility: [facility] [place] Address: [address] [place] [address] Performed By: #### 2 4356-8 #### [facility] CLIA [id number] [address] [place], [place] [address] [place] Color (U) Yellow Normal Yellow [facility] Comment on above: Order Comment: Speci men Type: URINE SPECIMEN Ordering Facility: [facility] [place] Address: [address] [place] [address] Performed By: #### 2 4356-8 #### [facility] CLIA [id number] [address] [place] [address] [place] Epithelial cells LM.HPF (Urine sed) [#/Area] None Seen Normal [facility] Comment on above: Order Comment: Speci men Type: URINE SPECIMEN Ordering Facility: [facility] [place] Address: [address] [place] [address] Performed By: #### 2 4356-8 #### [facility] CLIA [id number] [address] [place] [address] [place] Glucose Test strip (U) [Mass/Vol] Negative Normal Negative [facility] Comment on above: Order Comment: Speci men Type: URINE SPECIMEN Ordering Facility: [facility] [place] Address: [address] [place] [address] Performed By: #### 2 4356-8 #### [facility] CLIA [id number] [address] [place], [place] [address] [place] Hemoglobin Ql (U) Negative Normal Negative [facility] Comment on above: Order Comment: Speci men Type: URINE SPECIMEN Ordering Facility: [facility] [place] Address: [address] [place], [place] [address] Performed By: #### 2 4356-8 #### [facility] CLIA [id number] [address] [place], [place] [address] [place] Hyaline casts (Urine sed) [#/Area] 0 /[LPF] Normal 0 /LPF [facility] Comment on above: Order Comment: Speci men Type: URINE SPECIMEN Ordering Facility: [facility] [place] Address: [address] [place] [address] Performed By: #### 2 4356-8 #### [facility] CLIA [id number] [address] [place] [address] [place] Ketones Ql (U) Negative Normal Negative [facility] Comment on above: Order Comment: Speci men Type: URINE SPECIMEN Ordering Facility: [facility] [place] Address: [address] [place] [address] Performed By: #### 2 4356-8 #### [facility] CLIA [id number] [address] [place] [address] [place] Leukocyte esterase Test strip Ql (U) Negative Normal Negative [facility] Comment on above: Order Comment: Speci men Type: URINE SPECIMEN Ordering Facility: [facility] [place] Address: [address] [place] [address] Performed By: #### 2 4356-8 #### [facility] CLIA [id number] [address] [place] [address] [place] Nitrite Ql (U) Negative Normal Negative [facility] Comment on above: Order Comment: Speci men Type: URINE SPECIMEN Ordering Facility: [facility] [place] Address: [address] [place] [address] Performed By: #### 2 4356-8 #### [facility] CLIA [id number] [address] [place] [address] [place] pH (U) 6.0 [pH] Normal <8.5 [facility] Comment on above: Order Comment: Speci men Type: URINE SPECIMEN Ordering Facility: [facility] [place] Address: [address] [place] [address] Performed By: #### 2 4356-8 #### [facility] CLIA [id number] [address] [place] [address] [place] Protein (U) [Mass/Vol] Negative Normal Negative [facility] Comment on above: Order Comment: Speci men Type: URINE SPECIMEN Ordering Facility: [facility] [place] Address: [address] [place] [address] Performed By: #### 2 4356-8 #### [facility] CLIA [id number] [address] [place] [address] [place] RBC LM.HPF (Urine sed) [#/Area] 0-2 /HPF Normal 0-2 /HPF [facility] Comment on above: Order Comment: Speci men Type: URINE SPECIMEN Ordering Facility: [facility] [place] Address: [address] [place] [address] Performed By: #### 2 4356-8 #### [facility] CLIA [id number] [address] [place] [address] [place] Specific gravity (U) [Rel density] 1.017 Normal 1.005-1.030 [facility] Comment on above: Order Comment: Speci men Type: URINE SPECIMEN Ordering Facility: [facility] [place] Address: [address] [place] [address] Performed By: #### 2 4356-8 #### [facility] CLIA [id number] [address] [place] [address] [place] Urobilinogen Ql (U) 0.2 EU/dL Normal 0.2-1.0 EU/dL [facility] Comment on above: Order Comment: Speci men Type: URINE SPECIMEN Ordering Facility: [facility] [place] Address: [address] [place] [address] Performed By: #### 2 4356-8 #### [facility] CLIA [id number] [address] [place] [address] [place] WBC LM.HPF (Urine sed) [#/Area] 0-5 /HPF Normal 0-5 /HPF [facility] Comment on above: Order Comment: Speci men Type: URINE SPECIMEN Ordering Facility: [facility] [place] Address: [address] [place] [address] Performed By: #### 2 4356-8 #### [facility] CLIA [id number] [address] [place] [address] [facility] CNOVon 08-15-2024 CNOV Office Visit (LOORRM ) SAMANTHA FRASER ([id number]) 1960 M Date Time Provider Department 08/15/24 1:30 PM JOSÉ LUIS SIGALA During your visit today, we recorded the following information about you: José Luis Sigala MD 08/16/2024 1:59 PM Signed [facility] NOTE [facility] NAME: SAMANTHA FRASER CLINIC NO.: [id number] DATE OF SERVICE: 08/15/2024 ATTENDING PHYSICIAN: José Luis Sigala II, M.D. CHIEF COMPLAINT: Continued pain in my right knee and he gives way at times. The patient was seen on July 31, 2024 gone over thoroughly. He is a 64- year-old 5 foot 9 inch, 170-pound male from [place], [place]. He has some mixed arthritis of his right knee. X-ray show degenerative arthritis of the medial compartment and he has inflammatory arthritis treated with Plaquenil by Dr. Shirley. We have discussed in the past with the patient total knee replacement, the risks and anticipated results and he has been worked up by his doctors at home to include having an EGD to rule out an ulcer centrally and they have not found any necessary ulcers in his stomach and have given him clearance to go ahead and proceed with right total knee replacement. I reiterated the risks and anticipated results with the patient and he would like to proceed. We will schedule for a right total knee replacement. DICTATED BY: José Luis Sigala II, M.D. MCK/AQT JOB# [id number] Nurse Esthetician: CLINIC NOTE ID: [id number] 08/15/2024 2:29 PM Author: JOSÉ LUIS SIGALA Signed by JOSÉ LUIS SIGALA MD on 08/16/2024 at 1:59 PM Document text: [facility] CLINIC NOTE [facility] NAME: SAMANTHA FRASER CLINIC NO.: [id number] DATE OF SERVICE: 08/15/2024 ATTENDING PHYSICIAN: José Luis Sigala II, M.D. CHIEF COMPLAINT: Continued pain in my right knee and he gives way at times. The patient was seen on July 31, 2024 gone over thoroughly. He is a 64- year-old 5 foot 9 inch, 170-pound male from [place], [place]. He has some mixed arthritis of his right knee. X-ray show degenerative arthritis of the medial compartment and he has inflammatory arthritis treated with Plaquenil by Dr. Shirley. We have discussed in the past with the patient total knee replacement, the risks and anticipated results and he has been worked up by his doctors at home to include having an EGD to rule out an ulcer centrally and they have not found any necessary ulcers in his stomach and have given him clearance to go ahead and proceed with right total knee replacement. I reiterated the risks and anticipated results with the patient and he would like to proceed. We will schedule for a right total knee replacement. DICTATED BY: Kristine Gomez II/AQT JOB# [id number] -- Referring Provider: SHEN CHRISTINE [[id number]] Allergies As of Date: 08/15/2024 Noted Allergy Reaction HYDROCODONE-ACETAMINOP HEN 03/15/2013 5 - Intolerance 8 - GI Upset QUETIAPINE 07/14/2022 5 - Intolerance Date Reviewed: 07/31/2024 Reviewed by: Shen Christine PA-C - Fully Assessed Primary Visit Diagnosis:Primary osteoarthritis of right knee [M17.11] Prescriptions as of 08/21/2024 - levothyroxine (SYNTHROID) 75 mcg tablet Take 1 tablet by mouth once daily. - Biotin 10 mg tab Take 1 tablet by mouth two times a day. - famotidine (PEPCID) 40 mg tablet Take 40 mg by mouth two times a day. - nortriptyline (PAMELOR) 25 mg capsule Take 50 mg by mouth daily at bedtime. - hydrOXYchloroQUINE (PLAQUENIL) 200 mg tablet TAKE 2 TABLETS ONCE DAILY WITH FOOD SUNSCREEN WHEN OUTDOORS SEE OPHTHAMOLOGY EVERY 2-6 MONTHS ON MED - pregabalin (LYRICA) 100 mg capsule Take 1cap by mouth 3times a day - Melatonin 5 mg cap 1 (one) time each day at the same time. - predniSONE (DELTASONE) 5 mg tablet Day 1=6tabs with food, Day 2=5tabs, Day 3=4tabs, Day 4=3tabs, Day 5=2tabs, Day 6=1tab, No NSAIDs on med - atorvastatin (LIPITOR) 40 mg tablet TAKE 1 TABLET BY MOUTH EVERY DAY FOR 30 DAYS - eszopiclone (LUNESTA) 3 mg tab TAKE 1 TABLET IMMEDIATELY BEFORE BEDTIME ONCE A DAY FOR 30 DAYS Problem List As Of Date 08/15/2024 Noted Resolved Hypothyroid [E03.9] 01/17/2012 Sleep disorder [G47.9] 01/17/2012 Fatigue [R53.83] 01/17/2012 Encounter for long-term (current) use of NSAIDs*07/14/2022 Long-term use of high-risk medication [Z79.899] 07/14/2022 Long-term use of Plaquenil [Z79.899] 07/14/2022 Family history of rheumatoid arthritis [Z82.61] 07/14/2022 Family history of systemic lupus erythematosus *07/14/2022 Cervicalgia [M54.2] 07/14/2022 Chronic pain of both shoulders [M25.511, G89.29*07/14/2022 Heberden's nodes [M15.1] 07/14/2022 Inflammatory arthritis [M19.90] (more content not included)... Normal [facility] US abdomen limitedon 025 US abdomen limited [facility] [address] Ultrasound Report Signed Patient: Regan Fraser MR#: [id number] 2001 : 1960 Acct:[id number] Age/Sex: 64 / M ADM Date: 08/14/24 Loc: Room: Type: [facility] Attending Dr: Sarahy Downey MD Ordering Provider: Sarahy Downey MD Date of Service: 08/14/24 US/US abdomen limited: R10.9 - Unspecified abdominal pain Copies to: Sarahy Downey MD LIMITED ABDOMINAL ULTRASOUND: CLINICAL HISTORY: Bloating reflux for 5 years COMPARISON: None TECHNIQUE: Grayscale and color Doppler images of the right upper quadrant organs were obtained. FINDINGS: Pancreas: Visualized portions appear unremarkable. Liver: Unremarkable. Gallbladder: Removed CBD: 2.6 mm US/US abdomen limited IMPRESSION: NO ACUTE PROCESS. . Impression dictated by: Roni Pichardo Jr., DJavierOJavier08/14/2024 10:32 AM Dictation Location: [place] [address] Tech: Reba Will Transcribed By: JANETH 08/14/24 1032 Dictated By: oRni Pichardo Jr, DO 08/14/24 1028 Signed By: 08/14/24 1032 Normal [facility] Jace 08-07-2024 ARIE Telephone (ORAVON) SAMANTHA FRASER ([id number]) 1960 M Date Time Provider Department 08/07/24 JOSÉ LUIS SIGALA During your visit today, we recorded the following information about you: Cortney Hopper 08/07/2024 3:25 PM Signed Samantha is calling José Luis Sigala II, MD today has an EGD done. Was supposed to call after he he got one to schedule his knee replacement surgery. Please advise. Patient has been identified by name and birthdate. Duration of symptoms: N/A Person calling: self Call patient at: at home [phone] (home) [phone] (cell) Was an appointment scheduled: No Closing statement: Results or non-symptom based questions: Thank you for calling [facility], your call will be returned within the next business day. Cortney Hopper Reba Moreno 08/09/2024 9:41 AM Signed Patient is calling back stating he has not heard anything regarding his knee replacement surgery. Please call Samantha at [phone] to advise. Noelle Julien MA 08/09/2024 11:03 AM Signed appt made to see Dr. Sigala on 08/19/24 he had EGD biopsy and untrasound scheduled for 08/14/24 Will bring clearance and will then schedule surgery patient understands PRAMOD Baron Megan 08/09/2024 11:37 AM Signed Patient spoke with Dr. Figueroa's office at [facility] and they are requesting a clearance form be faxed to them at [phone]. Please advise. Noelle Julien MA 08/09/2024 12:43 PM Signed letter for clearance request sent by fax today to PRAMOD Sinha Tammy 09/05/2024 11:33 AM Signed Patient calling because he states he is having problems doing the pre-questionnaire for his VV States someone explained it to him once but he just does not get it Please advise Noelle Julien MA 09/05/2024 12:53 PM Signed called patient and all appts explained and corrected because he does not do zoom Noelle Julien MA Allergies As of Date: 08/07/2024 Noted Allergy Reaction HYDROCODONE-ACETAMINOP HEN 03/15/2013 5 - Intolerance 8 - GI Upset QUETIAPINE 07/14/2022 5 - Intolerance Date Reviewed: 07/31/2024 Reviewed by: Shen Christine PA-C - Fully Assessed Reason for Visit: Patient Update [1234] Prescriptions as of 09/05/2024 - levothyroxine (SYNTHROID) 75 mcg tablet Take 1 tablet by mouth once daily. - Biotin 10 mg tab Take 1 tablet by mouth two times a day. - famotidine (PEPCID) 40 mg tablet Take 40 mg by mouth two times a day. - nortriptyline (PAMELOR) 25 mg capsule Take 50 mg by mouth daily at bedtime. - hydrOXYchloroQUINE (PLAQUENIL) 200 mg tablet TAKE 2 TABLETS ONCE DAILY WITH FOOD SUNSCREEN WHEN OUTDOORS SEE OPHTHAMOLOGY EVERY 2-6 MONTHS ON MED - pregabalin (LYRICA) 100 mg capsule Take 1cap by mouth 3times a day - Melatonin 5 mg cap 1 (one) time each day at the same time. - predniSONE (DELTASONE) 5 mg tablet Day 1=6tabs with food, Day 2=5tabs, Day 3=4tabs, Day 4=3tabs, Day 5=2tabs, Day 6=1tab, No NSAIDs on med - atorvastatin (LIPITOR) 40 mg tablet TAKE 1 TABLET BY MOUTH EVERY DAY FOR 30 DAYS - eszopiclone (LUNESTA) 3 mg tab TAKE 1 TABLET IMMEDIATELY BEFORE BEDTIME ONCE A DAY FOR 30 DAYS Problem List As Of Date 08/07/2024 Noted Resolved Hypothyroid [E03.9] 01/17/2012 Sleep disorder [G47.9] 01/17/2012 Fatigue [R53.83] 01/17/2012 Encounter for long-term (current) use of NSAIDs*07/14/2022 Long-term use of high-risk medication [Z79.899] 07/14/2022 Long-term use of Plaquenil [Z79.899] 07/14/2022 Family history of rheumatoid arthritis [Z82.61] 07/14/2022 Family history of systemic lupus erythematosus *07/14/2022 Cervicalgia [M54.2] 07/14/2022 Chronic pain of both shoulders [M25.511, G89.29*07/14/2022 Heberden's nodes [M15.1] 07/14/2022 Inflammatory arthritis [M19.90] 07/14/2022 Chronic pain of both knees [M25.561, M25.562, G*07/14/2022 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*07/14/2022 Bilateral hand pain [M79.641, M79.642] 07/14/2022 Peripheral neuropathy [G62.9] 07/14/2022 Chronic pain of both feet [M79.671, G89.29, M79*02/27/2023 Chronic bilateral low back pain without sciatic*02/27/2023 Primary osteoarthritis of right knee [M17.11] 03/01/2023 Effusion of right knee [M25.461] 03/01/2023 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] 03/01/2023 Genu varum of right lower extremity [M21.161] 04/03/2023 Rheumatoid arthritis involving multiple sites w*04/03/2023 Encounter Status:Closed by NOELLE JULIEN on 08/09/24 [facility] Amphetamine Screen Ql (U)Ord ered By: Sarahy Downey on 08-06-2024 Amphetamines Ql (U) Amphetamines screen Negativ e [facility] Barbiturates [Presence] in U rine by Screen methodOrdered By: Imgenia Asaad on 08-06-2024 Barbiturates Screen Ql (U) Barbiturates [Presence] in Urine by Screen method Negative [facility] Benzodiazepines Screen Ql (U )Ordered By: Sarahy Asagenia on 08-06-2024 Benzodiazepines Ql (U) Benzodiazepines [Presence] in Urine by Screen method Negative [facility] Benzoylecgonine [Presence] i n Urine by Screen methodOrdered By: Sarahy Asagenia on 08-06-2024 Benzoylecgonine Screen Ql (U) Benzoylecgonine [Presence] in Urine by Screen method Negative [facility] Cannabinoids [Presence] in U rine by Screen methodOrdered By: Sarahy Asaad on 08-06-2024 Cannabinoids Screen Ql (U) Cannabinoids [Presence] in Urine by Screen method High Negative [facility] Comment on above: These are unconfirme d results and should not be used for legal purposes. Drug Cut-Off Concentration: AMPH 1000 ng/mL STEPHANIE 200 ng/mL VENKATESH 200 ng/mL COCM 300 ng/mL OP 300 ng/mL PCP 25 ng/mL THC 20 ng/mL Drug Screen,Urineon 08-06-19 Amphetamine Screen,Urine Negative Normal Negative [facility] Comment on above: Performed By: #### U RDS #### [address] Barbiturate Screen,Urine Negative Normal Negative [facility] Comment on above: Performed By: #### U RDS #### [address] Benzodiazepines Screen,Urine Negative Normal Negative [facility] Comment on above: Performed By: #### U RDS #### [address] Cannabinoid Screen,Urine Positive High Negative [facility] Comment on above: Result Comment: Thes e are unconfirmed results and should not be used for legal purposes. Drug Cut-Off Concentration: AMPH 1000 ng/mL STEPHANIE 200 ng/mL VENKATESH 200 ng/mL COCM 300 ng/mL OP 300 ng/mL PCP 25 ng/mL THC 20 ng/mL PERFORMED BY: [place] [address] PATHOLOGIST [employer] LAURIE STILES M.D. Performed By: #### U RDS #### [address] Cocaine Screen,Urine Negative Normal Negative [facility] Comment on above: Performed By: #### U RDS #### [place] [address] [place] Opiate Screen,Urine Negative Normal Negative [facility] Comment on above: Performed By: #### U RDS #### [place] [address] [place] Phencyclidine Screen,Urine Negative Normal Negative [facility] Comment on above: Performed By: #### U RDS #### [facility] [address] [place] [id number] [facility] 08-06-2024 L -- ---- Specimen: [id number] Received: 08/06/24 Status: ASHLI Balbuena Num: [id number] Spec Type: Surgical Subm Dr: Sarahy Downey MD Tissues: A Small Intestine - Biopsy/Polyp (SM BOWEL R/O CELIAC) B Gastric Biopsy (GASTRIC BX R/O H PYLORI) Procedures: CHANDRA/Lory Gross/Micro L4/2 ---- Age/ Patient Sex Location Account Attending Physician ---- Regan Fraser/Abigail [id number] Sarahy Downey MD ---- SPEC NUM: [id number] RECD: 08/06/24 STATUS: ASHLI BALBUENA NUM: [id number] MAE: 08/06/[address] [facility] [address]: Sarahy Downey MD ENTERED: 08/06/[address] [facility] [address]: SPEC TYPE: Surgical DEPT: S ENTERED BY: [id number] RECV BY: [id number] ORDERED: HE/4, Gross/Micro L4/2 ORDERED: HE/4, Gross/Micro L4/2 Pathological Diagnosis A. Small bowel, biopsy: - Small bowel mucosa with no significant histopathology. - No evidence of celiac disease identified. B. Stomach, biopsy: - Oxyntic type gastric mucosa with minimal chronic inactive gastritis. - No Helicobacter pylori microorganisms identified with routine H E stain. Clinical Information GERD, rule out celiac, rule out H. pylori Gross Description Part A is received in formalin labeled with the patients name, date of , and Sm bowel BX are two love-boyce, focally erythematous, friable, 0.2 and 0.3 cm in greatest dimension tissue bits. The specimen is entirely submitted in a single cassette. (1, ns, [id number] A) JG Part B is received in formalin labeled with the patients name, date of , and gastric BX are two love-boyce, focally erythematous, friable, 0.3 and 0.4 cm in greatest dimension tissue bits. The specimen is entirely submitted in a single cassette. (1, ns, [id number] B) JG ---- Specimen: [id number] Received: 08/06/24 Status: ASHLI Balbuena Num: [id number] Spec Type: Surgical Subm Dr: Sarahy Downey MD Tissues: A Small Intestine - Biopsy/Polyp (SM BOWEL R/O CELIAC) B Gastric Biopsy (GASTRIC BX R/O H PYLORI) Procedures: HE/4, Gross/Micro L4/2 ---- Patient: Regan Fraser [id number] (Continued) ---- Specimen: [id number] Received: 08/06/24 (Continued) Signed (signature on file) Moises Tejada MD 08/07/24922 ---- Specimen: [id number] Received: 08/06/24 Status: ASHLI Balbuena Num: [id number] Spec Type: Surgical Subm Dr: Sarahy Downey MD Tissues: A Small Intestine - Biopsy/Polyp (SM BOWEL R/O CELIAC) B Gastric Biopsy (GASTRIC BX R/O H PYLORI) Procedures: Anders GRAFF/Micro L4/2 ---- Patient: Regan Fraser [id number] (Continued) ---- Specimen: [id number] Received: 08/06/24 (Continued) Microscopic Description A B: Microscopic examination is performed. CPT Codes 43150 x2 ---- ---- Specimen: [id number] Received: 08/06/24 Status: ASHLI Balbuena Num: [id number] Spec Type: Surgical Subm Dr: Sarahy Downey MD Tissues: A Small Intestine - Biopsy/Polyp (SM BOWEL R/O CELIAC) B Gastric Biopsy (GASTRIC BX R/O H PYLORI) Procedures: HE/4, Gross/Micro L4/2 ---- Patient: Regan Fraser [id number] (Continued) ---- Signed (signature on file) Moises Tejada MD 08/07/24 0923 Normal [facility] Opiates [Presence] in Urine by Screen methodOrdered By: Sarahy Downey on 08-06-2024 Opiates Screen Ql (U) Opiates [Presence] in Urine by Screen method Negative [facility] Phencyclidine Screen Ql (U)O rdered By: Sarahy Downey on 08-06-2024 Phencyclidine Ql (U) Phencyclidine [Presence] in Urine by Screen method Negative [facility] CNOVon 07-31-2024 CNOV Office Visit (LOORRM ) SAMANTHA RFASER ([id number]) 1960 M Date Time Provider Department 07/31/24 1:15 PM JOSÉ LUIS SIGALA During your visit today, we recorded the following information about you: José Luis Sigala MD 07/31/2024 3:34 PM Signed see dictated note José Luis Sigala II, MD Referring Provider: SHEN CHRISTINE [[id number]] Allergies As of Date: 07/31/2024 Noted Allergy Reaction HYDROCODONE-ACETAMINOP HEN 03/15/2013 5 - Intolerance 8 - GI Upset QUETIAPINE 07/14/2022 5 - Intolerance Date Reviewed: 07/31/2024 Reviewed by: Shen Christine PA-C - Fully Assessed Primary Visit Diagnosis:Primary osteoarthritis of right knee [M17.11] Prescriptions as of 07/31/2024 - levothyroxine (SYNTHROID) 75 mcg tablet Take 1 tablet by mouth once daily. - Biotin 10 mg tab Take 1 tablet by mouth two times a day. - famotidine (PEPCID) 40 mg tablet Take 40 mg by mouth two times a day. - nortriptyline (PAMELOR) 25 mg capsule Take 50 mg by mouth daily at bedtime. - sucralfate (CARAFATE) 1 gram tablet Take 1 g by mouth four times daily. - hydrOXYchloroQUINE (PLAQUENIL) 200 mg tablet TAKE 2 TABLETS ONCE DAILY WITH FOOD SUNSCREEN WHEN OUTDOORS SEE OPHTHAMOLOGY EVERY 2-6 MONTHS ON MED - pregabalin (LYRICA) 100 mg capsule Take 1cap by mouth 3times a day - Melatonin 5 mg cap 1 (one) time each day at the same time. - predniSONE (DELTASONE) 5 mg tablet Day 1=6tabs with food, Day 2=5tabs, Day 3=4tabs, Day 4=3tabs, Day 5=2tabs, Day 6=1tab, No NSAIDs on med - atorvastatin (LIPITOR) 40 mg tablet TAKE 1 TABLET BY MOUTH EVERY DAY FOR 30 DAYS - eszopiclone (LUNESTA) 3 mg tab TAKE 1 TABLET IMMEDIATELY BEFORE BEDTIME ONCE A DAY FOR 30 DAYS Problem List As Of Date 07/31/2024 Noted Resolved Hypothyroid [E03.9] 01/17/2012 Sleep disorder [G47.9] 01/17/2012 Fatigue [R53.83] 01/17/2012 Encounter for long-term (current) use of NSAIDs*07/14/2022 Long-term use of high-risk medication [Z79.899] 07/14/2022 Long-term use of Plaquenil [Z79.899] 07/14/2022 Family history of rheumatoid arthritis [Z82.61] 07/14/2022 Family history of systemic lupus erythematosus *07/14/2022 Cervicalgia [M54.2] 07/14/2022 Chronic pain of both shoulders [M25.511, G89.29*07/14/2022 Heberden's nodes [M15.1] 07/14/2022 Inflammatory arthritis [M19.90] 07/14/2022 Chronic pain of both knees [M25.561, M25.562, G*07/14/2022 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*07/14/2022 Bilateral hand pain [M79.641, M79.642] 07/14/2022 Peripheral neuropathy [G62.9] 07/14/2022 Chronic pain of both feet [M79.671, G89.29, M79*02/27/2023 Chronic bilateral low back pain without sciatic*02/27/2023 Primary osteoarthritis of right knee [M17.11] 03/01/2023 Effusion of right knee [M25.461] 03/01/2023 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] 03/01/2023 Genu varum of right lower extremity [M21.161] 04/03/2023 Rheumatoid arthritis involving multiple sites w*04/03/2023 Encounter Status:Closed by JOSÉ LUIS SIGALA II on 07/31/24 [facility] Office Visit (ELIZAORRM ) SAMANTHA FRASER ([id number]) 1960 M Date Time Provider Department 07/31/24 11:30 AM SHEN CHRISTINE During your visit today, we recorded the following information about you: Weight Height 77.6 kg 1.753 m Shen Christine PA-C 09/02/2024 9:24 AM Signed CONSULT ORTHOPAEDIC: KNEE PRIMARY CARE PHYSICIAN: El Bush MD, MD REFERRING PROVIDER: Hayden Shirley [address] [facility] [address] ASSESSMENT AND PLAN Impression: Right Knee Severe Degenerative Osteoarthritis, Primary Diagnoses: (M17.11) Primary osteoarthritis of right knee (primary encounter diagnosis) Based upon the evaluation today and after discussions with Samantha Fco Fraser, Samantha Fraser has significant, worsening pain at the knee. This pain is increased with activity and weight bearing, and interferes with activities of daily living. These symptoms have continued despite a number of non-surgical measures, including a trial of oral pain medication and attempted physical therapy/ structured exercise program and/or use of an assistive device/ bracing (for at least 12 weeks unless the patient was unable to tolerate these measures as discussed above). At this point, the patient will not benefit from further PT due to the severity of their condition. The patient's physical examination is consistent with limitations in range of motion, pain with passive range of motion, crepitus, and effusion/ synovitis. These examination findings are corroborated by imaging findings of joint space narrowing, periarticular osteophyte formation, and subchondral sclerosis. The patient has been treated by the practice and all reasonable treatments have failed to control the disease, which causes significant pain and limits activities of daily living. The patient has failed conservative treatment and joint replacement surgery was discussed and agreed upon by both provider and patient. We will proceed with surgical management to improve function and relieve pain refractory to non-surgical measures. Right Primary Total Knee Arthroplasty as evidenced by six months of unsuccessful non-operative treatment as outlined in the HPI below and progressive symptoms. Progressive Symptoms Include: Pain impacting sleep or causing fatigue Pain impacting work Pain worsened by weight bearing Pain effecting living situation Pain limiting ability to stay fit and healthy Unable to ambulate 2 blocks without significant pain and dysfunction . Surgery Details Date and Location: At [place] on 10/03/24. Implants: Anny Robotic: No Predicted LOS: 1 day (Outpatient candidate) Informed consent obtained in the office today. The risks and benefits of surgery were discussed at length including but not limited to the risks of infection, bleeding, nerve or blood vessel injury, deep venous thrombosis, pulmonary embolism, arthrofibrosis,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 TECHNIQUE: XR KNEE 4V AP/PA BOTH+LAT/BRIANA RT COMPARISON: 02/27/2023 RESULT: Marked medial compartment narrowing. Small tricompartmental osteophytes. No fractures or joint effusion. Normal soft tissues. No other significant abnormality. - DIVISION OF RADIOLOGY Provider, Johanny Pan - 12/15/2023 * * *Final Report* * * DATE OF EXAM: Dec 15 2023 12:04PM LZX 5203 - XR KNEE 4V AP/PA BOTH+LAT/BRIANA RT / PROCEDURE REASON: Primary osteoarthritis of right knee * * * * Physician Interpretation * * * * HISTORY: Primary osteoarthritis of right knee . Chronic Right knee pain TECHNIQUE: XR KNEE 4V AP/PA BOTH+LAT/BRIANA RT COMPARISON: 02/27/2023 RESULT: Marked medial compartment narrowing. Small tricompartmental osteophytes. No fractures or joint effusion. Normal soft tissues. No other significant abnormality. - IMPRESSION IMPRESSION: MARKED DEGENERATIVE CHANGES MEDIAL COMPARTMENT Electronic Device Monitor: [facility] Transcribe Date/Time: Dec 15 2023 1:17P Dictated by : TONO BEEBE MD This examination was interpreted and the report reviewed and electronically signed by: TONO BEEBE MD on Dec 15 2023 1:18PM [facility] Radiology Study observation (narrative) [facility] XR Knee - right 4 ViewsOrder ed By: [facility] Provider on 12-15-2023 [facility] Jace 12-03-2023 CNPN Telephone (CHRISSN) SAMANTHA FRASER ([id number]) 1960 Date Time Provider Department 12/03/23 HAYDEN SHIRLEY During your visit today, we recorded the following information about you: Hayden Shirley MD 12/03/2023 2:41 PM Addendum Please Call patient: normal labs and no inflammation. Happy to further review and discuss at follow up visit. Continue rest of treatment plan per instructions at last office visit. Thank you. 11/27/23 normal cbc, cmp, esr 2, crp<0.3; Vikas Paniagua MA 12/05/2023 11:11 AM Signed Spoke to pt aware of results and recommendations. Allergies As of Date: 12/03/2023 Noted Allergy Reaction BACLOFEN 07/14/2022 5 - Intolerance HYDROCODONE-ACETAMINOP HEN 03/15/2013 5 - Intolerance QUETIAPINE 07/14/2022 5 - Intolerance TRAZODONE 07/14/2022 5 - Intolerance Date Reviewed: 11/27/2023 Reviewed by: Hayden Shirley MD - Fully Assessed Reason for Visit: Results [95] Prescriptions as of 12/05/2023 - pregabalin (LYRICA) 100 mg capsule Take 1cap by mouth 3times a day - baclofen 10 mg tablet take 1 tablet by mouth everyday at bedtime - Melatonin 5 mg cap 1 (one) time each day at the same time. - predniSONE (DELTASONE) 5 mg tablet Day 1=6tabs with food, Day 2=5tabs, Day 3=4tabs, Day 4=3tabs, Day 5=2tabs, Day 6=1tab, No NSAIDs on med - hydrOXYchloroQUINE (PLAQUENIL) 200 mg tablet Take 2 tabs by mouth daily with food. Sunscreen when outdoors. See ophthalmology every 6-12months on med. - meloxicam (MOBIC) 15 mg tablet Take 1 tablet by mouth once daily. Take with food. For pain - atorvastatin (LIPITOR) 40 mg tablet TAKE 1 TABLET BY MOUTH EVERY DAY FOR 30 DAYS - eszopiclone (LUNESTA) 3 mg tab TAKE 1 TABLET IMMEDIATELY BEFORE BEDTIME ONCE A DAY FOR 30 DAYS - hydrOXYzine HCl (ATARAX) 25 mg tablet TAKE 1 TABLET BY MOUTH 3 TIMES A DAY NEEDED FOR SLEEP DISTURBANCE/ANXIETY - levothyroxine 75 mcg tablet Take 1 tablet by mouth twice daily. Take a 1/2 tablet bu mouth twice daily Problem List As Of Date 12/03/2023 Noted Resolved Hypothyroid [E03.9] 01/17/2012 Sleep disorder [G47.9] 01/17/2012 Fatigue [R53.83] 01/17/2012 Encounter for long-term (current) use of NSAIDs*07/14/2022 Long-term use of high-risk medication [Z79.899] 07/14/2022 Long-term use of Plaquenil [Z79.899] 07/14/2022 Family history of rheumatoid arthritis [Z82.61] 07/14/2022 Family history of systemic lupus erythematosus *07/14/2022 Cervicalgia [M54.2] 07/14/2022 Chronic pain of both shoulders [M25.511, G89.29*07/14/2022 Heberden's nodes [M15.1] 07/14/2022 Inflammatory arthritis [M19.90] 07/14/2022 Chronic pain of both knees [M25.561, M25.562, G*07/14/2022 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*07/14/2022 Bilateral hand pain [M79.641, M79.642] 07/14/2022 Peripheral neuropathy [G62.9] 07/14/2022 Chronic pain of both feet [M79.671, G89.29, M79*02/27/2023 Chronic bilateral low back pain without sciatic*02/27/2023 Primary osteoarthritis of right knee [M17.11] 03/01/2023 Effusion of right knee [M25.461] 03/01/2023 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] 03/01/2023 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9 g/dL 13.0 - 17.0 g/dL [facility] Interpretation and review of laboratory results Normal [facility] MCH (RBC) [Entitic mass] 31.0 pg 26.0 - 34.0 pg [facility] MCHC (RBC) [Mass/Vol] 32.9 g/dL 30.5 - 36.0 g/dL [facility] MCV (RBC) [Entitic vol] 94.2 fL 80.0 - 100.0 fL [facility] Nucleated RBC (Bld) [#/Vol] NINF [facility] Platelet mean volume (Bld) [Entitic vol] 9.4 fL 9.0 - 12.7 fL [facility] Platelets (Bld) [#/Vol] 227 10*3/uL [facility] RBC (Bld) [#/Vol] 4.81 10*6/uL 4.20 - 6.0 0 m/uL [facility] WBC (Bld) [#/Vol] 7.71 10*3/uL [facility] Erythrocyte distribution width (RBC) [Ratio] 14.3 % Normal 11.5-15.0 [facility] Comment on above: Order Comment: Speci men Type: BLOOD SPECIMENOrdering Facility: [facility] [place] Address: [address] [place] [address] Performed By: #### 4 537-7, 09522-7 ####[facility] LABCLIA [id number] [address] STATES OF [facility] Hematocrit (Bld) [Volume fraction] 45.3 % Normal 39.0-51.0 [facility] Comment on above: Order Comment: Speci men Type: BLOOD SPECIMENOrdering Facility: [facility] [place] Address: [address] [place] [address] Performed By: #### 4 537-7, 84979-1 ####[facility] LABCLIA [id number] [place] [address] [place] Hemoglobin (Bld) [Mass/Vol] 14.9 g/dL Normal 13.0-17.0 [facility] Comment on above: Order Comment: Speci men Type: BLOOD SPECIMENOrdering Facility: [facility] [place] Address: [address] [place] [address] Performed By: #### 4 537-7, 97133-5 ####[facility] LABCLIA [id number] [place] [address] [place] MCH (RBC) [Entitic mass] 31.0 pg Normal 26.0-34.0 [facility] Comment on above: Order Comment: Speci men Type: BLOOD SPECIMENOrdering Facility: [facility] [place] Address: [address] [place] [address] Performed By: #### 4 537-7, 53737-7 ####[facility] LABIA [id number] [place] [address] [place] MCHC (RBC) [Mass/Vol] 32.9 g/dL Normal 30.5-36.0 [facility] Comment on above: Order Comment: Speci men Type: BLOOD SPECIMENOrdering Facility: [facility] [place] Address: [address] [place] [address] Performed By: #### 4 537-7, 09420-1 ####[facility] LABCLIA [id number] [place] [id number] [place] MCV (RBC) [Entitic vol] 94.2 fL Normal 80.0-100.0 [facility] Comment on above: Order Comment: Speci men Type: BLOOD SPECIMENOrdering Facility: [facility] [place] Address: [address] [place] [address] Performed By: #### 4 537-7, 14431-8 ####[facility] LABCLIA [id number] [place] [address] [place] Nucleated RBC (Bld) [#/Vol] 10*3/uL Normal <0.01 [facility] Comment on above: Order Comment: Speci men Type: BLOOD SPECIMENOrdering Facility: [facility] [place] Address: [address] [place] [address] Performed By: #### 4 537-7, 06597-7 ####[facility] LABCLIA [id number] [place] [address] [place] Platelet mean volume (Bld) [Entitic vol] 9.4 fL Normal 9.0-12.7 [facility] Comment on above: Order Comment: Speci men Type: BLOOD SPECIMENOrdering Facility: [facility] [place] Address: [address] [place] [address] Performed By: #### 4 537-7, 54439-9 ####[facility] LABIA [id number] [place] [address] [place] Platelets (Bld) [#/Vol] 227 10*3/uL Normal 150-400 [facility] Comment on above: Order Comment: Speci men Type: BLOOD SPECIMENOrdering Facility: [facility] [place] Address: [address] [place] [address] Performed By: #### 4 537-7, 31847-8 ####[facility] LABIA [id number] [place] [address] [place] RBC (Bld) [#/Vol] 4.81 10*6/uL Normal 4.20-6.00 [facility] Comment on above: Order Comment: Speci men Type: BLOOD SPECIMENOrdering Facility: [facility] [place] Address: [address] [place] [address] Performed By: #### 4 537-7, 31561-0 ####[facility] LABCLIA [id number] [place] [id number] [place] WBC (Bld) [#/Vol] 7.71 10*3/uL Normal 3.70-11.00 [facility] Comment on above: Order Comment: Speci men Type: BLOOD SPECIMENOrdering Facility: [facility] [place] Address: [address] [place] [address] Performed By: #### 4 537-7, 14441-9 ####[facility] LABCLIA [id number] [place] [address] [place] CNOVon 11-27-2023 CNOV Office Visit (MYRA ) SAMANTHA FRASER ([id number]) 1960 M Date Time Provider Department 11/27/23 1:40 PM HAYDEN SHIRLEY During your visit today, we recorded the following information about you: Pulse Blood pressure Weight 83/minute 131/85 83.3 kg Hayden Shirley MD 11/27/2023 2:26 PM Addendum May apply over the counter arthritis creams and or patches (biofreeze, icy hot, asper cream, tiger balm, capsacin, lidocaine, salon pas, voltaren gel, etc.) or over the counter pain patches to painful joints up to four times a day. Avoid contact with eyes. May take Extra Strength acetaminophen 500mg every 4-6hours for joint pain. Do not exceed 3000mg /day. Decrease stress Improve sleep May apply heat/ice 20minutes on and off to areas of pain Avoid aggravating triggers If needed, may take Calcium 1200mg daily with food in DIVIDED doses If labs normal, take Vitamin D 4000 International Units daily with food Hydroxychloroquine/Mark quenil: Please take one tab (200mg) twice a day with meals. Please see food counter worker every 6-12months while on Hydroxychloroquine. Lyrica 100mg up to 3times a day For flares take prednisone as instructed Recommend goal: exercising 30minutes 3-5 times a week Recommend weight-bearing aerobic exercises such as walking, dancing, low impact aerobics, elliptical machine, stair climbing, gardening, biking, water exercises flexibility exercises and strength training exercises Recommend avoiding high impact exercises such as jumping, running or jogging or movements where you bend forward and twist the waist, for instance- touching your toes, sit-ups, using row machine machine long goods helper pain recommendations per primary care provider/pain clinic Nonfasting labs as scheduled Thank you. Latest Ref Rng 05/29/2023 Protein, Total 6.3 - 8.0 g/dL 7.3 Albumin 3.9 - 4.9 g/dL 4.8 Calcium 8.5 - 10.2 mg/dL 9.9 Bilirubin, Total 0.2 - 1.3 mg/dL 0.3 Alkaline Phosphatase 38 - 113 U/L 58 AST 14 - 40 U/L 24 ALT 10 - 54 U/L 27 Glucose 74 - 99 mg/dL 120 (H) BUN 9 - 24 mg/dL 19 Creatinine 0.73 - 1.22 mg/dL 1.15 Sodium 136 - 144 mmol/L 139 Potassium 3.7 - 5.1 mmol/L 4.4 Chloride 97 - 105 mmol/L 103 CO2 22 - 30 mmol/L 27 Anion Gap 9 - 18 mmol/L 9 eGFR >=60 mL/min/1.73m? 72 WBC 3.70 - 11.00 k/uL 7.18 RBC 4.20 - 6.00 m/uL 5.09 Hemoglobin 13.0 - 17.0 g/dL 15.9 Hematocrit 39.0 - 51.0 % 46.4 MCV 80.0 - 100.0 fL 91.2 MCH 26.0 - 34.0 pg 31.2 MCHC 30.5 - 36.0 g/dL 34.3 RDW-CV 11.5 - 15.0 % 13.3 Platelet Count 150 - 400 k/uL 226 MPV 9.0 - 12.7 fL 8.8 (L) Absolute nRBC <0.01 k/uL <0.01 WSR 0 - 15 mm/hr 2 CRP <0.9 mg/dL <0.3 Vitamin D 25 Hydroxy 31.0 - 80.0 ng/mL 67.0 07/14/22 hand xrays-Moderate to severe degenerative changes in multiple DIP joints on both side. Mild degenerative changes in the first CMC joint bilaterally. Outside 07/12/22 fT3- 2.66, Ft4-1.05, tsh 0.528, hgb 15.5, plts 282, wbc 8.9 Outside 06/2022 normal cmp, glucose 126, potassium 3.9, creat 1.07, calcium 8.8, alkaline phosphatase 44, alt 22, ast 17 Hayden Shirley MD 11/27/2023 3:54 PM Signed Face to face follow up for joint pain/ osteoarthritis Today's visit 11/27/23:due for labs. taking baclofen, plaquenil 2tabs daily, hydroxyzine, mobic, lyrica 75mg 3times a day, no recent oral steroids (it helps but does not like the side effects of bloating and insomnia). 07/2023 eye exam, no medication toxicity. 08/2023 lost lyrica, difficulty opening bottles 05/29/23 borderline glucose 120;normal rest of cmp, cbc, esr 2, crp<0.3, vitamin D 67; 03/15/23 PT not:will benefit from skilled PT services to help improve keen ROM/strength. Recommend outpatient PT 2 x week x 4weeks 03/06/23 normal vitamin [id number] (988) 02/27/23 knee xrays-shows osteoarthritis and tendinopathy Off balance due to feet neuropathy RLE gives out, fallen a few times. Dirt work/yardwork for exercise. Left hands swelling in AM. Chronic current pain in L>R hands, R>L knees, feet. Sharp pain in legs/feet. Reports pain 4/10. Has 30min minimal AM stiffness. GI upset stomach ulcer, worse lately, due to see GI. Feels safe at home. Has enough food, supplies and medications. Overall uncomfortable but happy with rheum care. No falls/fx/trauma/illnes s/oral sores/rash/hairloss/ja w pain/dysphagia/epistax is/hemoptysis since last visit. No adverse effects with meds. No other complaints. Patient denies fever, chills, cp, dyspnea, nausea, vomiting, night sweats, scalp tenderness, visual changes, garza, bowel/bladder changes, weight changes or other complaints. Last visit supportive care, consult ortho, initially improved with plaquenil/restart 2tabs daily,start photoprotection, see ophthalmology, improved with lyrica increase 75mg 3times a day/notify office if not tolerated, improved with prednisone pack/take for flares, when off steroids, start prn heat/ice/otc art (more content not included)... Normal [facility] CRP SerPl-mCncon 11-27-2023 CRP [Mass/Vol] mg/L Normal <0.9 [facility] Comment on above: Order Comment: Speci men Type: BLOOD SPECIMENOrdering Facility: [facility] [facility] [place] Address: [address] [place] [address] Performed By: #### 2 43209-14, 1987-11 ####[facility] LABCLIA [id number] [place] [address] [place] Comprehensive metabolic 2000 panelon 11-27-2023 Albumin [Mass/Vol] 4.2 g/dL Normal 3.9-4.9 [facility] Comment on above: Order Comment: Speci men Type: BLOOD SPECIMENOrdering Facility: [facility] [place] Address: [address] [place], [place] [id number] Performed By: #### 2 43209-14, 1987-11 ####[facility] LABCLIA [id number] [place] [address] [place] ALP [Catalytic activity/Vol] 55 U/L Normal 38-113 [facility] Comment on above: Order Comment: Speci men Type: BLOOD SPECIMENOrdering Facility: [facility] [place] Address: [address] [place] [address] Performed By: #### 2 43209-14, 1987-11 ####[facility] LABCLIA [id number] [place] [id number] [place] ALT [Catalytic activity/Vol] 26 U/L Normal 10-54 [facility] Comment on above: Order Comment: Speci men Type: BLOOD SPECIMENOrdering Facility: [facility] [place] Address: [address] [place], [place] [id number] Performed By: #### 2 4328, 1987-11 ####[facility] LABCLIA [id number] [address] [address] [place] Anion gap [Moles/Vol] 13 mmol/L Normal 9-18 [facility] Comment on above: Order Comment: Speci men Type: BLOOD SPECIMENOrdering Facility: [facility] [place] Address: [address] [place], [place] [id number] Performed By: #### 2 4323-02, 1987-11 ####[facility] LABCLIA [id number] [place] [id number] [place] AST [Catalytic activity/Vol] 27 U/L Normal 14-40 [facility] Comment on above: Order Comment: Speci men Type: BLOOD SPECIMENOrdering Facility: [facility] [place] Address: [address] [place], [place] [id number] Performed By: #### 2 43209-14, 1987-11 ####[facility] LABCLIA [id number] [address] [address] [place] Bilirubin [Mass/Vol] 0.3 mg/dL Normal 0.2-1.3 [facility] Comment on above: Order Comment: Speci men Type: BLOOD SPECIMENOrdering Facility: [facility] [place] Address: [address] [place] [address] Performed By: #### 2 4328, 1987-11 ####[facility] LABCLIA [id number] [address] [address] [place] Calcium [Mass/Vol] 9.3 mg/dL Normal 8.5-10.2 [facility] Comment on above: Order Comment: Speci men Type: BLOOD SPECIMENOrdering Facility: [facility] [place] Address: [address] [place], [place] [phone] Performed By: #### 2 43238, 1987-11 ####[facility] LABCLIA [id number] [address] [address] [place] Chloride [Moles/Vol] 102 mmol/L Normal 97-105 [facility] Comment on above: Order Comment: Speci men Type: BLOOD SPECIMENOrdering Facility: [facility] [place] Address: [address] [place] [address] Performed By: #### 2 43209-14, 1987-11 ####[facility] LABCLIA [id number] [place] [address] [place] CO2 [Moles/Vol] 24 mmol/L Normal 22-30 [facility] Comment on above: Order Comment: Speci men Type: BLOOD SPECIMENOrdering Facility: [facility] [place] Address: [address] [place] [address] Performed By: #### 2 4328, 1987-11 ####[facility] LABCLIA [id number] [place] [address] [place] Creatinine [Mass/Vol] 1.01 mg/dL Normal 0.73-1.22 [facility] Comment on above: Order Comment: Speci men Type: BLOOD SPECIMENOrdering Facility: [facility] [place] Address: [address] [place] [address] Performed By: #### 2 4328, 1987-11 ####[facility] LABCLIA [id number] [place] [id number] [place] Creatinine and Glomerular filtration rate.predicted panel (S/P/Bld) 84 mL/min/1.73m??? Normal >=60 [facility] Comment on above: Order Comment: Speci men Type: BLOOD SPECIMENOrdering Facility: [facility] [place] Address: [address] [place] [address] Result Comment: Lindsay mated Glomerular Filtration Rate (eGFR) is calculated using the 2020 CKD-EPI creatinine equation. This equation utilizes serum creatinine, sex, and age as parameters. The creatinine assay has traceable calibration to isotope dilution-mass spectrometry. Refer to KDIGO guidelines for clinical interpretation. In patients with unstable renal function, e.g. those with acute kidney injury, the eGFR may not accurately reflect actual GFR. Performed By: #### 2 4328, 1987-11 ####[facility] LABCLIA [id number] [address] [address] [place] Glucose [Mass/Vol] 89 mg/dL Normal 74-99 [facility] Comment on above: Order Comment: Speci men Type: BLOOD SPECIMENOrdering Facility: [facility] [place] Address: [address] [place] [address] Result Comment: The [place] Diabetes Association (ADA) provides guidance for cutoff values for fasting glucose and random glucose. The ADA defines fasting as no caloric intake for at least 8 hours. Fasting plasma glucose results between 100 to 125 mg/dL indicate increased risk for diabetes (prediabetes). Fasting plasma glucose results greater than or equal to 126 mg/dL meet the criteria for diagnosis of diabetes. In the absence of unequivocal hyperglycemia, results should be confirmed by repeat testing. In a patient with classic symptoms of hyperglycemia or hyperglycemic crisis, random plasma glucose results greater than or equal to 200 mg/dL meet the criteria for diagnosis of diabetes. Reference: Standards of Medical Care in Diabetes 2016, [place] [employer] Association. Diabetes Care. 2016.39(Suppl 1). Performed By: #### 2 43209-14, 1987-11 ####[facility] LABCLIA [id number] [place] [id number] [place] Potassium [Moles/Vol] 4.1 mmol/L Normal 3.7-5.1 [facility] Comment on above: Order Comment: Speci men Type: BLOOD SPECIMENOrdering Facility: [facility] [place] Address: [address] [place] [address] Performed By: #### 2 43209-14, 1987-11 ####[facility] LABCLIA [id number] [address] [address] [place] Protein [Mass/Vol] 6.5 g/dL Normal 6.3-8.0 [facility] Comment on above: Order Comment: Speci men Type: BLOOD SPECIMENOrdering Facility: [facility] [place] Address: [address] [place], [place] [phone] Performed By: #### 2 4323-8, 1987-11 ####[facility] LABIA [id number] [place] [address] [place] Sodium [Moles/Vol] 139 mmol/L Normal 136-144 [facility] Comment on above: Order Comment: Speci men Type: BLOOD SPECIMENOrdering Facility: [facility] [place] Address: [address] [place] [address] Performed By: #### 2 4328, 1987-11 ####[facility] LABIA [id number] [place] [address] [place] Urea nitrogen [Mass/Vol] 19 mg/dL Normal 9-24 [facility] Comment on above: Order Comment: Speci men Type: BLOOD SPECIMENOrdering Facility: [facility] [place] Address: [address] [place], [place] [phone] Performed By: #### 2 432-8, 1987-11 ####[facility] LABIA [id number] [place] [address] [place] ESR Westergren method (Bld) [Velocity]on 11-27-2023 ESR (Bld) [Velocity] 2 mm/h Normal 0-15 [facility] Comment on above: Order Comment: Speci men Type: BLOOD SPECIMENOrdering Facility: [facility] [place] Address: [address] [place] [address] Performed By: #### 4 537-7, 52603-3 ####[facility] LABIA [id number] [place] [id number] [place] XR KNEE GENERAL 4V AP BOTH/P A BOTH/LAT/MERC BILATERALon 02-27-2023 [facility] XR HAND GENERAL 3V PA/LAT/OB L BILATERALon 07-14-2022 [facility] FREE T3on 07-12-2022 FREE T3 2.66 pg/mlL Normal 2.18-3.98 [facility] Comment on above: Performed By: #### T KYLEE, FT3 #### [facility] [address] [place] [address] Dr. Salbador Vizcaino FREE T4on 07-12-2022 Free T4 [Mass/Vol] 1.05 ng/dL Normal 0.76-1.46 [facility] Comment on above: Performed By: #### F T4 #### [facility] [address] [place] [address] Dr. Salbador Vizcaino TSHon 07-12-2022 TSH 0.528 uIU/mL Normal 0.358-3.740 [facility] Comment on above: Performed By: #### T KYLEE, FT3 #### [facility] [address] [place] [address] Dr. Salbador Vizcaino CBC AUTO DIFFon 07-05-2022 BASO # 0.0 103/ul Normal 0.0-0.1 [facility] Comment on above: Performed By: #### C BC #### [facility] [address] [place] [address] Dr. Salbador Vizcaino Basophils/100 WBC (Bld) 0.2 % Normal 0.2-2.0 [facility] Comment on above: Performed By: #### C BC #### [facility] [address] [place] [address] Dr. Salbador Vizcaino EO # 0.1 103/ul Normal 0.0-0.7 [facility] Comment on above: Performed By: #### C BC #### [facility] [address] [place] [address] Dr. Salbador Vizcaino Eosinophils/100 WBC (Bld) 1.0 % Normal 0.9-7.0 [facility] Comment on above: Performed By: #### C BC #### [facility] [address] [place] [address] Dr. Salbador Vizcaino Erythrocyte distribution width (RBC) [Ratio] 13.2 % Normal 11.0-15.0 [facility] Comment on above: Performed By: #### C BC #### [facility] [address] [place] [address] Dr. Salbador Vizcaino Hematocrit (Bld) [Volume fraction] 45.4 % Normal 42.0-54.0 [facility] Comment on above: Performed By: #### C BC #### [facility] [address] [place] [address] Dr. Salbador Vizcaino Hemoglobin (Bld) [Mass/Vol] 15.5 g/dL Normal 14.0-18.0 [facility] Comment on above: Performed By: #### C BC #### [facility] [address] [place] [address] Dr. Salbador Vizcaino IG # 0.02 10e3/ul Normal 0.00-0.03 [facility] Comment on above: Performed By: #### C BC #### [facility] [address] [place] [address] Dr. Salbador Vizcaino IG % 0.2 % Normal 0.0-0.5 [facility] Comment on above: Performed By: #### C BC #### [facility] [address] [place] [address] Dr. Salbador Vizcaino LYMPH # 1.6 103/ul Normal 1.2-3.8 [facility] Comment on above: Performed By: #### C BC #### [facility] [address] [place] [address] Dr. Salbador Vizcaino Lymphocytes/100 WBC (Bld) 17.8 % Critically low 20.5-60.0 [facility] Comment on above: Performed By: #### C BC #### [facility] [address] [place] [address] Dr. Salbador Vizcaino MANUAL DIFF REQ NO Normal [facility] Comment on above: Performed By: #### C BC #### [facility] [address] [place] [address] Dr. Salbador Vizcaino MCH (RBC) [Entitic mass] 31.0 pg Normal 25.9-34.0 [facility] Comment on above: Performed By: #### C BC #### [facility] [address] [place] [address] [address] Salbador Vizcaino MCHC (RBC) [Mass/Vol] 34.1 g/dL Normal 29.9-35.2 [facility] Comment on above: Performed By: #### C BC #### [facility] [address] [place] [address] [address] Salbador Vizcaino MCV (RBC) [Entitic vol] 90.8 fL Normal 80.0-94.0 [facility] Comment on above: Performed By: #### C BC #### [facility] [address] [place] [address] [address] Salbador Vizcaino MONO # 0.7 103/ul Normal 0.3-0.8 [facility] Comment on above: Performed By: #### C BC #### [facility] [address] [place] [address] Dr. Salbador Vizcaino Monocytes/100 WBC (Bld) 7.9 % Normal 1.7-12.0 [facility] Comment on above: Performed By: #### C BC #### [facility] [address] [place] [address] [address] Salbador Vizcaino NEUT # 6.5 103/ul Normal 1.4-6.5 [facility] Comment on above: Performed By: #### C BC #### [facility] [address] [place] [address] Dr. Salbador Vizcaino Neutrophils/100 WBC (Bld) 72.9 % Normal 43.0-75.0 [facility] Comment on above: Performed By: #### C BC #### [facility] [address] [place] [address] Dr. Salbador Vizcaino Platelet mean volume (Bld) [Entitic vol] 8.7 fL Critically low 9.5-13.5 [facility] Comment on above: Performed By: #### C BC #### [facility] [address] [place] [address] Dr. Salbador Vizcaino PLT 282 103/ul Normal 150-450 [facility] Comment on above: Performed By: #### C BC #### [facility] [address] [place] [address] Dr. Salbador Vizcaino RBC 5.00 106/ul Normal 4.70-6.10 [facility] Comment on above: Performed By: #### C BC #### [facility] [address] [place] [address] Dr. Salbador Vizcaino WBC 8.9 103/ul Normal 4.0-11.0 [facility] Comment on above: Performed By: #### C BC #### [facility] [address] [place] [address] Dr. Salbador Vizcaino PROF CHEM 8 (BAS METB)on Anion gap [Moles/Vol] 9.9 mmol/L Normal [facility] Comment on above: Performed By: #### B MP #### [facility] [address] [place] [address] Dr. Salbador Vizcaino Calcium [Mass/Vol] 8.8 mg/dL Normal 8.5-10.1 [facility] Comment on above: Performed By: #### B MP #### [facility] [address] [place] [address] Dr. Salbador Vizcaino Chloride [Moles/Vol] 101 mmol/L Normal 98-107 [facility] Comment on above: Performed By: #### B MP #### [facility] [address] [place] [address] Dr. Salbador Vizcaino CO2 [Moles/Vol] 29.0 mmol/L Normal 21.0-32.0 [facility] Comment on above: Performed By: #### B MP #### [facility] [address] [place] [address] Dr. Salbador Vizcaino Creatinine [Mass/Vol] 1.07 mg/dL Normal 0.70-1.30 [facility] Comment on above: Performed By: #### B MP #### [facility] [address] [place] [address] Dr. Salbador Vizcaino EGFR-AF AUSTRALIAN >60 Normal >=60 [facility] Comment on above: Performed By: #### B MP #### [facility] [address] [place] [address] [address] Salbador Vizcaino EGFR-NON AF AUSTRALIAN >60 Normal >=60 [facility] Comment on above: Performed By: #### B MP #### [facility] [address] [place] [address] [address] Salbador Vizcaino Glucose [Mass/Vol] 126 mg/dL Critically high 74-106 [facility] Comment on above: Performed By: #### B MP #### [facility] [address] [place] [address] [address] Salbador Vizcaino Potassium [Moles/Vol] 3.9 mmol/L Normal 3.5-5.1 [facility] Comment on above: Performed By: #### B MP #### [facility] [address] [place] [address] [address] Salbador Vizcaino Sodium [Moles/Vol] 136 mmol/L Normal 136-145 [facility] Comment on above: Performed By: #### B MP #### [facility] [address] [place] [address] [address] Salbador Vizcaino Urea nitrogen [Mass/Vol] 20.0 mg/dL Critically high 7.0-18.0 [facility] Comment on above: Performed By: #### B MP #### [facility] [address] [place] [address] [address] Salbador Vizcaino Urea nitrogen/Creatinine [Mass ratio] 18.7 mg/mg Normal [facility] Comment on above: Performed By: #### B MP #### [facility] [address] [place] [address] [address] Salbador Vizcaino Comprehensive Metabolic Pane nedra 12-13-2021 Albumin [Mass/Vol] 4.6 g/dL Normal 3.6-5.1 [facility] [employer] Comment on above: Performed By: #### L IPD, TSH, FT4, FT3, CMP #### [facility] [address] [place], [place] [id number] Albumin/Globulin [Mass ratio] 2.4 {ratio} Normal 1.0-2.5 [facility] [employer] Comment on above: Performed By: #### L IPD, TSH, FT4, FT3, CMP #### [facility] [address] [place], [place] [id number] ALP [Catalytic activity/Vol] 44 U/L Normal 40-129 [facility] Comment on above: Performed By: #### L IPD, TSH, FT4, FT3, CMP #### [facility] [address] [place], [place] [id number] ALT [Catalytic activity/Vol] 22 U/L Normal 9-46 [facility] Comment on above: Result Comment: 06/09 Female reference range changed. Performed By: #### L IPD, TSH, FT4, FT3, CMP #### [facility] [address] [place], [place] [id number] Anion gap [Moles/Vol] 16 mmol/L Normal 12-20 [facility] Comment on above: Result Comment: Effe ctive 07/15/2019 reference range changed. Performed By: #### L IPD, TSH, FT4, FT3, CMP #### [facility] [address] [place], [place] [id number] AST [Catalytic activity/Vol] 17 U/L Normal 10-40 [facility] Comment on above: Performed By: #### L IPD, TSH, FT4, FT3, CMP #### [facility] [address] [place], [place] [id number] Bilirubin [Mass/Vol] 0.38 mg/dL Normal 0.30-1.20 [facility] Comment on above: Performed By: #### L IPD, TSH, FT4, FT3, CMP #### [facility] [address] [place], [place] [id number] BUN/CREA 23 Ratio High 6-22 [facility] Comment on above: Performed By: #### L IPD, TSH, FT4, FT3, CMP #### [facility] [address] [place], [place] [id number] Calcium [Mass/Vol] 9.3 mg/dL Normal 8.6-10.2 [facility] Comment on above: Performed By: #### L IPD, TSH, FT4, FT3, CMP #### [facility] [address] [place], [place] [id number] Chloride [Moles/Vol] 105 mmol/L Normal 98-107 [facility] Comment on above: Performed By: #### L IPD, TSH, FT4, FT3, CMP #### [facility] [address] [place], [place] [id number] CO2 [Moles/Vol] 23 mmol/L Normal 20-31 [facility] Comment on above: Performed By: #### L IPD, TSH, FT4, FT3, CMP #### [facility] [address] [place], [place] [id number] Creatinine [Mass/Vol] 1.0 mg/dL Normal 0.7-1.4 [facility] Comment on above: Performed By: #### L IPD, TSH, FT4, FT3, CMP #### [facility] [address] [place], [place] [id number] eGFRAA 97 mL/min/1.73m2 Normal >60 [facility] Comment on above: Performed By: #### L IPD, TSH, FT4, FT3, CMP #### [facility] [address] [place], [place] [id number] eGFRNAA 80 mL/min/1.73m2 Normal >60 [facility] Comment on above: Performed By: #### L IPD, TSH, FT4, FT3, CMP #### [facility] [address] [place], [place] [id number] Globulin (S) [Mass/Vol] 1.9 g/dL Normal 1.9-3.7 [facility] Comment on above: Performed By: #### L IPD, TSH, FT4, FT3, CMP #### [facility] [address] [place], [place] [id number] Glucose [Mass/Vol] 108 mg/dL High 65-99 [facility] Comment on above: Result Comment: For FASTING Glucose --- ADA reference ranges: Normal 65-99 mg/dl Prediabetes 100-125 Diabetes >/= 126 Performed By: #### L IPD, TSH, FT4, FT3, CMP #### [facility] [address] [place], [place] [id number] Potassium [Moles/Vol] 4.5 mmol/L Normal 3.5-5.5 [facility] Comment on above: Performed By: #### L IPD, TSH, FT4, FT3, CMP #### [facility] [address] [place], [place] [id number] Protein [Mass/Vol] 6.5 g/dL Normal 6.1-8.1 [facility] [place] [employer] Comment on above: Performed By: #### L IPD, TSH, FT4, FT3, CMP #### [facility] [address] [place], [place] [id number] Sodium [Moles/Vol] 140 mmol/L Normal 135-146 [facility] [place] [employer] Comment on above: Performed By: #### L IPD, TSH, FT4, FT3, CMP #### [facility] [address] [place], [place] [id number] Urea nitrogen [Mass/Vol] 22 mg/dL Normal 7-25 [facility] [employer] Comment on above: Performed By: #### L IPD, TSH, FT4, FT3, CMP #### [facility] [address] [place], [place] [id number] Free T3on 12-13-2021 FT3 2.59 pg/mL Normal 2.00-4.40 [facility] [employer] Comment on above: Performed By: #### L IPD, TSH, FT4, FT3, CMP #### [facility] [address] [place], [place] [id number] Free T4on 12-13-2021 Free T4 [Mass/Vol] 1.24 ng/dL Normal 0.80-1.80 [facility] [place] [employer] Comment on above: Performed By: #### L IPD, TSH, FT4, FT3, CMP #### [facility] [address] [place], [place] [id number] Lipid Panelon 12-13-2021 Cholesterol [Mass/Vol] 105 mg/dL Low 125-200 No rthern [place] [employer] Comment on above: Result Comment: Low risk < 200mg/dL Borderline risk 201-239 mg/dl High risk > or equal to 240 Performed By: #### L IPD, TSH, FT4, FT3, CMP #### [facility] [address] [place], [place] [id number] Cholesterol in HDL [Mass/Vol] 34 mg/dL Low >40 [facility] Comment on above: Result Comment: High Cardiovascular Risk HDL <40 mg/dL Low Cardiovascular Risk HDL > or equal to 60 mg/dl Performed By: #### L IPD, TSH, FT4, FT3, CMP #### [facility] [address] [place], [place] [id number] Cholesterol in LDL [Mass/Vol] 52 mg/dL Normal [facility] Comment on above: Result Comment: LDL ATP III CLASSIFICATION LDL less than 100 mg/dl Optimal LDL 100-129 mg/dl Near or above optimal LDL 130-159 Borderline high LDL 160-189 High LDL greater than 189 mg/dl Very High Performed By: #### L IPD, TSH, FT4, FT3, CMP #### [facility] [address] [place], [place] [id number] Cholesterol in VLDL [Mass/Vol] 19 mg/dL Normal [facility] Comment on above: Performed By: #### L IPD, TSH, FT4, FT3, CMP #### [facility] [address] [place], [place] [id number] Cholesterol.total/Chol esterol in HDL [Mass ratio] 3 {ratio} Normal [facility] Comment on above: Performed By: #### L IPD, TSH, FT4, FT3, CMP #### [facility] [address] [place], [place] [id number] Triglyceride [Mass/Vol] 95 mg/dL Normal 30-150 [facility] Comment on above: Result Comment: TRIG ATPIII CLASSIFICATIONS TRIG less than 150 mg/dl Normal TRIG 150-199 mg/dl Borderline High TRIG 200-500 mg/dl High TRIG greather than 500 mg/dl Very High Performed By: #### L IPD, TSH, FT4, FT3, CMP #### [facility] [address] [place], [place] [id number] TSHon 12-13-2021 TSH 1.020 uIU/mL Normal 0.400-4.500 [facility] Comment on above: Performed By: #### L IPD, TSH, FT4, FT3, CMP #### [facility] [address] [place], [place] [id number] Creatinine (Bld) [Mass/Vol]O rdered By: Tay Hsieh on 11-22-2021 Creatinine [Mass/Vol] 1.0 mg/dL 0.6-1.3 [facility] Comment on above: ER/ESD physician is notified/shown all ISTAT results. Critical values may be confirmed by laboratory testing if deemed necessary by ER attending doctor. No Panel InformationOrdered By: Tay Hsieh on 11-22-2021 POC Estimated GFR > 60 [facility] Comment on above: GFR estimated refere nce range: According to KDOQI guidelines, <60 ml/min/1.73m2 is sufficient to diagnose a patient with chronic kidney disease. POC Estimated GFR Non- Amer > 60 [facility] Albumin [Mass/volume] in Ser um or PlasmaOrdered By: Ryder Mcginnis on 09-06-2021 Albumin [Mass/Vol] 4.2 g/dL 3.2-5.5 [facility] Basophils Auto (Bld) [#/Vol] Ordered By: Ryder Mcginnis on 09-06-2021 Basophils (Bld) [#/Vol] 0.0 10*3/uL 0.0-0.2 [facility] Basophils/100 WBC Auto (Bld) Ordered By: Ryder Mcginnis on 09-06-2021 Basophils/100 WBC (Bld) 0.3 % [facility] Blood hemoglobin measurement (mass/volume)Ordered By: Ryder Mcginnis on 09-06-2021 Hemoglobin (Bld) [Mass/Vol] 15.3 g/dL 13.0-17.0 [facility] Blood leukocytes automated c ount (number/volume)Ordered By: Ryder Mcginnis on 09-06-2021 WBC (Bld) [#/Vol] 6.8 10*3/uL 4.5-11.0 [facility] Creatine kinase [Enzymatic a ctivity/volume] in Serum or PlasmaOrdered By: Ryder Mcginnis on 09-06-2021 CK [Catalytic activity/Vol] 166 U/L 22-269 [facility] Creatinine and Glomerular fi ltration rate.predicted panel (S/P/Bld)Ordered By: Ryder Mcginnis on 09-06-2021 Creatinine [Mass/Vol] 1.08 mg/dL 0.64-1.27 [facility] Eosinophils Auto (Bld) [#/Vo l]Ordered By: Ryder Mcginnis on 09-06-2021 Eosinophils (Bld) [#/Vol] 0.1 10*3/uL 0.0-0.45 [facility] Eosinophils/100 WBC Auto (Bl d)Ordered By: Ryder Mcginnis on 09-06-2021 Eosinophils/100 WBC (Bld) 1.2 % [facility] Erythrocyte distribution wid th Auto (RBC) [Ratio]Ordered By: Ryder Mcginnis on 09-06-2021 Erythrocyte distribution width (RBC) [Ratio] 13.8 % 12.0-14.8 [facility] Erythrocyte sedimentation ra te by Photometric methodOrdered By: Ryder Mcginnis on 09-06-2021 ESR Photometric method (Bld) [Velocity] 4 mm/hr 0-19 [facility] Estimated glomerular filtrat ion rate (GFR) non- AmericanOrdered By: Ryder Mcginnis on 09-06-2021 GFR/1.73 sq M.predicted among non-blacks MDRD (S/P/Bld) [Vol rate/Area] > 60 mL/Min [facility] Globulin Calc (S) [Mass/Vol] Ordered By: Ryder Mcginnis on 09-06-2021 Globulin (S) [Mass/Vol] 2.4 g/dL [facility] Hematocrit Auto (Bld) [Volum e fraction]Ordered By: Ryder Mcginnis on 09-06-2021 Hematocrit (Bld) [Volume fraction] 45.3 % 38.8-50.0 [facility] Laboratory - Hematology and Cell countsOrdered By: Ryder Mcginnis on 09-06-2021 Nucleated RBC/100 WBC (Bld) [Ratio] 0.0 % 0-0.5 [facility] Lymphocytes Auto (Bld) [#/Vo l]Ordered By: Ryder Mcginnis on 09-06-2021 Lymphocytes (Bld) [#/Vol] 1.2 10*3/uL 1.00-4.8 [facility] Lymphocytes/100 WBC Auto (Bl d)Ordered By: Ryder Mcginnis on 09-06-2021 Lymphocytes/100 WBC (Bld) 17.4 % [facility] MCH Auto (RBC) [Entitic mass ]Ordered By: Ryder Mcginnis on 09-06-2021 MCH (RBC) [Entitic mass] 31.5 pg 27.5-35.2 [facility] MCHC Auto (RBC) [Mass/Vol]Or dered By: Ryder Mcginnis on 09-06-2021 MCHC (RBC) [Mass/Vol] 33.9 g/dL 32.5-35.6 [facility] MCV Auto (RBC) [Entitic vol] Ordered By: Ryder Mcginnis on 09-06-2021 MCV (RBC) [Entitic vol] 93.1 fL 83.5-101 [facility] Monocytes Auto (Bld) [#/Vol] Ordered By: Ryder Mcginnis on 09-06-2021 Monocytes (Bld) [#/Vol] 0.6 10*3/uL 0.0-0.8 [facility] Monocytes/100 WBC Auto (Bld) Ordered By: Ryder Mcginnis on 09-06-2021 Monocytes/100 WBC (Bld) 8.3 % [facility] Neutrophils Auto (Bld) [#/Vo l]Ordered By: Ryder Mcginnis on 09-06-2021 Neutrophils (Bld) [#/Vol] 5.0 10*3/uL 1.8-7.7 [facility] Neutrophils/100 WBC Auto (Bl d)Ordered By: Ryder Mcginnis on 09-06-2021 Neutrophils/100 WBC (Bld) 72.8 % [facility] No Panel InformationOrdered By: Ryder Mcginnis on 09-06-2021 Estimated GFR () > 60 mL/Min [facility] Comment on above: GFR estimated refere nce range: According to KDOQI guidelines, <60 ml/min/1.73m2 is sufficient to diagnose a patient with chronic kidney disease. Pharmacy Creatinine Clearance (Chem N/A [facility] Platelet mean volume Auto (B ld) [Entitic vol]Ordered By: Ryder Mcginnis on 09-06-2021 Platelet mean volume (Bld) [Entitic vol] 7.5 fL 6.6-10.1 [facility] Platelets Auto (Bld) [#/Vol] Ordered By: Ryder Mcginnis on 09-06-2021 Platelets (Bld) [#/Vol] 238 10*3/uL 150-450 [facility] Protein [Mass/volume] in Ser um or PlasmaOrdered By: Ryder Mcginnis on 09-06-2021 Protein [Mass/Vol] 6.6 g/dL 6.1-7.9 [facility] RBC Auto (Bld) [#/Vol]Ordere d By: yRder Mcginnis on 09-06-2021 RBC (Bld) [#/Vol] 4.86 10*6/uL 3.90-5.60 [facility] Serum nuclear antibody titer Ordered By: Ryder Mcginnis on 09-06-2021 Nuclear Ab (S) [Titer] Negative [facility] Comment on above: Negative <1:80 Borderline 1:80 Positive >1:80 ICAP nomenclature: AC-0 For more information about Hep-2 cell patterns use ANApatterns.org, the official website for the International Consensus on Antinuclear Antibody (LEI) Patterns (ICAP). Performed at: [facility] [address] [id number] [employer] Plant Operator: Nahun Parkinson PhD, Phone: [phone] Serum or plasma C reactive p rotein measurement (mass/volume)Ordered By: Ryder Mcginnis on 09-06-2021 CRP [Mass/Vol] 0.7 mg/dL 0.0-1.0 [facility] Serum or plasma alanine phipps otransferase measurement without P-5'-P (enzymatic activiOrdered By: Ryder Mcginnis on 09-06-2021 ALT No additional P-5'-P [Catalytic activity/Vol] 26 U/L 10-60 [facility] Serum or plasma albumin/glob ulin mass ratioOrdered By: Ryder Mcginnis on 09-06-2021 Albumin/Globulin [Mass ratio] 1.8 {ratio} [facility] Serum or plasma alkaline faye sphatase measurement (enzymatic activity/volume)Ordered By: Ryder Mcginnis on 09-06-2021 ALP [Catalytic activity/Vol] 45 U/L 32-92 [facility] Serum or plasma aspartate am inotransferase measurement (enzymatic activity/volume)Ordered By: Ryder Mcginnis on 09-06-2021 AST [Catalytic activity/Vol] 21 U/L 10-42 [facility] Serum or plasma calcium travon urement (mass/volume)Ordered By: Ryder Mcginnis on 09-06-2021 Calcium [Mass/Vol] 9.5 mg/dL 8.2-10.2 [facility] Serum or plasma chloride catherine surement (moles/volume)Ordered By: Ryder Mcginnis on 09-06-2021 Chloride [Moles/Vol] 103 mmol/L 95-114 [facility] Serum or plasma glucose travon urement (mass/volume)Ordered By: Ryder Mcginnis on 09-06-2021 Glucose [Mass/Vol] 82 mg/dL 70-100 [facility] Comment on above: ADA recommended refe rence range Random Glucose Reference Range is dependent on time and content of last meal. Glucose of more than 200 mg/dL in a nonstressed, ambulatory subject supports the diagnosis of Diabetes Mellitus. Serum or plasma potassium me asurement (moles/volume)Ordered By: Ryder Mcginnis on 09-06-2021 Potassium [Moles/Vol] 4.7 mmol/L 3.5-5.1 [facility] Serum or plasma sodium measu rement (moles/volume)Ordered By: Ryder Mcginnis on 09-06-2021 Sodium [Moles/Vol] 138 mmol/L 136-146 [facility] Serum or plasma total biliru bin measurement (mass/volume)Ordered By: Ryder Mcginnis on 09-06-2021 Bilirubin [Mass/Vol] 0.6 mg/dL 0.3-1.2 [facility] Serum or plasma total carbon dioxide measurement (moles/volume)Ordered By: Ryder Mcginnis on 09-06-2021 CO2 [Moles/Vol] 27.2 mmol/L 22.0-30.0 [facility] Serum or plasma urea nitroge n measurement (mass/volume)Ordered By: Ryder Mcginnis on 09-06-2021 Urea nitrogen [Mass/Vol] 15 mg/dL 04-01 [facility] Free T3on 07-14-2021 FT3 3.17 pg/mL Normal 2.00-4.40 [facility] Specialist Comment on above: Performed By: #### T SH, FT3, FT4 #### [facility] [address] [place], [place] [id number] Free T4on 07-14-2021 Free T4 [Mass/Vol] 1.41 ng/dL Normal 0.80-1.80 [facility] Specialist Comment on above: Performed By: #### T SH, FT3, FT4 #### [facility] [address] [place], [place] [id number] Q - C-PEPTIDEon 07-14-2021 C-PEPTIDE 2.53 ng/mL Normal 0.80-3.85 [facility] Specialist Comment on above: Order Comment: [facility] Testing performed at: QPT, [facility], [address] [place] [address], [address] [place] [address], [id number], Corporate Legal Assistant: Adithya Pearce MD [facility] Collection Date/Time: [facility] Results Received Date/Time: [facility] Reported Date/Time: Performed By: #### 3 72 #### [facility] Default [address] [place] [address] Rheumatoid Factoron 07-14-19 22 RF <10 Normal [facility] Specialist Comment on above: Performed By: #### R F #### [facility] [address] [place], [place] [id number] TSHon 07-14-2021 TSH 0.247 uIU/mL Low 0.400-4.500 [facility] Component Overhaul Operator Comment on above: Performed By: #### T SH, FT3, FT4 #### [facility] [address] [place], [place] [id number] Vital Signs Date Time Vital Sign Value Performing Clinician Facility 09-13-2024 13:57-0500 Body height 175.3 cm Pac 2 Work Phone: [facility] 09-13-2024 13:57-0500 Body mass index (BMI) [Ratio] 26.7 kg/m2 Pacc 2 Work Phone: [facility] 09-13-2024 13:57-0500 Body temperature 97.81 [degF] Pacc 2 Work Phone: [facility] 09-13-2024 13:57-0500 Body weight 82 kg Pacc 2 Work Phone: [facility] 09-13-2024 13:57-0500 Diastolic blood pressure 82 mm[Hg] Pacc 2 Work Phone: [facility] 09-13-2024 13:57-0500 Heart rate 98 /min Pacc 2 Work Phone: [facility] 09-13-2024 13:57-0500 Respiratory rate 16 /min Pacc 2 Work Phone: [facility] 09-13-2024 13:57-0500 SaO2% (BldA) [Mass fraction] 96 % Pacc 2 Work Phone: [facility] 09-13-2024 13:57-0500 Systolic blood pressure 134 mm[Hg] Pacc 2 Work Phone: [facility] 08-28-2024 11:45-0500 Body height 175.3 cm Poonam Valerio ALARM INVESTIGATOR Work Phone: [facility] 08-28-2024 11:45-0500 Body mass index (BMI) [Ratio] 25.1 kg/m2 Poonam Valerio ALARM INVESTIGATOR Work Phone: [facility] 08-28-2024 11:45-0500 Body weight 77.11 kg Poonam Valerio ALARM INVESTIGATOR Work Phone: [facility] 08-20-2024 13:37-0500 Body height 175.26 cm El Bush MD Work Phone: [facility] 08-20-2024 13:37-0500 Body mass index (BMI) [Ratio] 25.1 kg/m2 El Bush MD Work Phone: [facility] 08-20-2024 13:37-0500 Body weight 77.11 kg El Bush MD Work Phone: [facility] 08-06-2024 09:10-0500 Diastolic blood pressure 91 mm[Hg] El Bush MD Work Phone: [facility] 08-06-2024 09:10-0500 Heart rate 82 /min El Bush MD Work Phone: [facility] 08-06-2024 09:10-0500 Respiratory rate 18 /min El Bush MD Work Phone: [facility] 08-06-2024 09:10-0500 SaO2% (BldA) [Mass fraction] 95 % El Bush MD Work Phone: [facility] 08-06-2024 09:10-0500 Systolic blood pressure 148 mm[Hg] El Bush MD Work Phone: [facility] 08-06-2024 07:16-0500 Body height 175.26 cm El Bush MD Work Phone: [facility] 08-06-2024 07:16-0500 Body weight 77.11 kg El Bush MD Work Phone: [facility] 07-31-2024 11:34-0500 Body height 175.3 cm Shen Scotch PA-C Work Phone: [facility] 07-31-2024 11:34-0500 Body mass index (BMI) [Ratio] 25.25 kg/m2 Shen Scotch PA-C Work Phone: [facility] 07-31-2024 11:34-0500 Body weight 77.56 kg Shen Scotch PA-C Work Phone: [facility] 07-22-2024 09:15-0500 Body height 175.26 cm [facility] 07-22-2024 09:15-0500 Body mass index (BMI) [Ratio] 25.4 kg/m2 [facility] 07-22-2024 09:15-0500 Body weight 78.01 kg [facility] 04-15-2024 13:04-0400 Body height 175.26 cm [facility] 04-15-2024 13:04-0400 Body mass index (BMI) [Ratio] 25.7 kg/m2 [facility] 04-15-2024 13:04-0400 Body weight 78.92 kg [facility] 04-15-2024 13:04-0400 Diastolic blood pressure 87 mm[Hg] [facility] 04-15-2024 13:04-0400 Heart rate 80 /min [facility] 04-15-2024 13:04-0400 Systolic blood pressure 134 mm[Hg] [facility] 04-05-2024 09:17-0400 Body height 175.3 cm Demetria Naranjo MD Work Phone: [facility] 04-05-2024 09:17-0400 Body mass index (BMI) [Ratio] 26.43 kg/m2 Demetria Naranjo MD Work Phone: [facility] 04-05-2024 09:17-0400 Body weight 81.19 kg Demetria Naranjo MD Work Phone: [facility] 04-05-2024 09:17-0400 Diastolic blood pressure 86 mm[Hg] Demetria Naranjo MD Work Phone: [facility] 04-05-2024 09:17-0400 Systolic blood pressure 122 mm[Hg] Demetria Naranjo MD Work Phone: [facility] 04-03-2024 11:00-0400 Body height 175.3 cm El Bush MD Work Phone: [facility] 04-03-2024 11:00-0400 Body mass index (BMI) [Ratio] 26.43 kg/m2 El Bush MD Work Phone: [facility] 04-03-2024 11:00-0400 Body weight 81.19 kg El Bush MD Work Phone: [facility] 04-03-2024 11:00-0400 Heart rate 87 /min El Bush MD Work Phone: [facility] 04-03-2024 11:00-0400 SaO2% (BldA) [Mass fraction] 97 % El Bush MD Work Phone: [facility] 02-12-2024 14:02-0400 Body height 175.26 cm [facility] 02-12-2024 14:02-0400 Body mass index (BMI) [Ratio] 25.7 kg/m2 [facility] 02-12-2024 14:02-0400 Body weight 78.92 kg [facility] 01-01-2024 10:34-0400 Body height 175.26 cm [facility] 01-01-2024 10:34-0400 Body mass index (BMI) [Ratio] 25.8 kg/m2 [facility] 01-01-2024 10:34-0400 Body weight 79.37 kg [facility] 11-27-2023 13:42-0400 Body mass index (BMI) [Ratio] 27.12 kg/m2 Hayden Shirley MD Work Phone: [facility] 11-27-2023 13:42-0400 Body weight 83.3 kg Hayden Shirley MD Work Phone: [facility] 11-27-2023 13:42-0400 Diastolic blood pressure 85 mm[Hg] Hayden Shirley MD Work Phone: [facility] 11-27-2023 13:42-0400 Heart rate 83 /min Hayden Shirley MD Work Phone: [facility] 11-27-2023 13:42-0400 SaO2% (BldA) [Mass fraction] 99 % Hayden Shirley MD Work Phone: [facility] 11-27-2023 13:42-0400 Systolic blood pressure 131 mm[Hg] Hayden Shirley MD Work Phone: [facility] 08-21-2023 15:56-0500 Body height 175.3 cm El Bush MD Work Phone: [facility] 08-21-2023 15:56-0500 Body mass index (BMI) [Ratio] 26.73 kg/m2 El Bush MD Work Phone: [facility] 08-21-2023 15:56-0500 Body weight 82.1 kg El Bush MD Work Phone: [facility] 07-31-2023 15:20-0500 Body height 175.26 cm Val Prasanna Other [employer] Other 07-31-2023 15:20-0500 Body mass index (BMI) [Ratio] 27.46 kg/m2 Val Sckavon Other [employer] Other 07-31-2023 15:20-0500 Body weight 84.37 kg Val Sckavon Other [employer] Other 07-31-2023 15:20-0500 Diastolic blood pressure 85 mm[Hg] Val Scovanner Other [employer] Other 07-31-2023 15:20-0500 Systolic blood pressure 137 mm[Hg] Val Scovanner Other [employer] Other 04-19-2023 11:25-0400 Body height 175.26 cm Sara Bah Other [employer] Other 04-19-2023 11:25-0400 Body mass index (BMI) [Ratio] 26.93 kg/m2 Sara Bah Other [employer] Other 04-19-2023 11:25-0400 Body temperature 98 [degF] Sara Bah Other [employer] Other 04-19-2023 11:25-0400 Body weight 82.74 kg Sara Bah Other [employer] Other 04-19-2023 11:25-0400 Diastolic blood pressure 77 mm[Hg] Sara Niurka Other [employer] Other 04-19-2023 11:25-0400 Respiratory rate 18 /min Sara Niurka Other [employer] Other 04-19-2023 11:25-0400 SaO2% (BldA) [Mass fraction] 96 % Sara Bah Other [employer] Other 04-19-2023 11:25-0400 Systolic blood pressure 116 mm[Hg] Sara Niurka Other [employer] Other 02-27-2023 08:38-0400 Body weight 80.29 kg Hayden Shirley MD Work Phone: [facility] 02-27-2023 08:38-0400 Diastolic blood pressure 90 mm[Hg] Hayden Shirley MD Work Phone: [facility] 02-27-2023 08:38-0400 Heart rate 84 /min Hayden Shirley MD Work Phone: [facility] 02-27-2023 08:38-0400 Systolic blood pressure 143 mm[Hg] Hayden Shirley MD Work Phone: [facility] Encounters Encounter Date Encounter Type Care Provider Facility Start: 10-03-2024 End: 10-03-2024 ambulatory JOSÉ LUIS SIGALA Facility:[facility] Start: 09-30-2024 End: 09-30-2024 Telephone encounter El Bush MD Work Phone: [facility] Start: 09-16-2024 End: 09-16-2024 ambulatory Candelaria Chan RNappliquer zigzag Start: 09-13-2024 End: 09-13-2024 Preprocedural examination done Pac [place] [facility] Work Phone: [facility] Work Phone: Start: 09-13-2024 Encounter for other preprocedural examination HAYDEN SHIRLEY [facility] Start: 09-13-2024 End: 09-13-2024 PAT [facility] [place] 2 Work Phone: Pre Anesthesia Comment on above: Pre-op evaluation (P rimary Dx); ANDREW (obstructive sleep apnea); Mixed hyperlipidemia; Sleep disorder; Gastroesophageal reflux disease without esophagitis; Chronic kidney disease, stage 2 (mild); Hypothyroidism, unspecified type; Rheumatoid arthritis involving multiple sites with positive rheumatoid factor (HCC) Primary osteoarthrit is of right knee (Primary Dx); Rheumatoid arthritis involving multiple sites with positive rheumatoid factor (HCC) Start: 08-28-2024 End: 08-28-2024 ambulatory POONAM VALERIO Not Available Start: 08-28-2024 End: 08-28-2024 Office outpatient visit 15 minutes Poonam Valerio ALARM INVESTIGATOR Work Phone: [facility] 210 Comment on above: Polyneuropathy (Prim roberta Dx); Insomnia, unspecified type; Lumbar back pain Start: 08-20-2024 End: 08-20-2024 ambulatory El Bush MD Work Phone: [facility] Work Phone: Start: 08-20-2024 End: 08-20-2024 Patient encounter procedure El Bush MD [facility] Phone[facility]: Start: 08-15-2024 End: 08-15-2024 ambulatory EL BUSH Facility:[facility] Start: 08-15-2024 End: 08-15-2024 Patient encounter procedure José Luis Sigala MD Work Phone: Orthopaedics Comment on above: Primary osteoarthrit is of right knee (Primary Dx) Start: 08-14-2024 End: 08-14-2024 Patient encounter procedure El Bush MD Work Phone: [facility] [place] Work Phone: Start: 08-14-2024 End: 08-14-2024 ambulatory El Bush MD Work Phone: [facility] Work Phone: Start: 08-09-2024 End: 08-29-2024 Orders Only José Luis Sigala MD Work Phone: Orthopaedics Comment on above: Pre-op testing (Prim roberta Dx); Frequent urination; MRSA (methicillin resistant Staphylococcus aureus); Primary osteoarthritis of right knee Start: 08-09-2024 End: 08-29-2024 Patient encounter status José Luis Sigala MD Work Phone: [facility] Start: 08-07-2024 End: 08-09-2024 Telephone encounter José Luis Sigala MD Work Phone: Orthopaedics Comment on above: Patient Update Start: 08-06-2024 Non-patient / Non-visit El Bush MD Work Phone: [facility] Work Phone: Start: 08-06-2024 End: 08-06-2024 Admission to same day surgery center El Bush MD Work Phone: [facility] Work Phone: Start: 08-06-2024 End: 08-06-2024 ambulatory El Bush MD Work Phone: [facility] Work Phone: Start: 07-31-2024 End: 07-31-2024 ambulatory EL BUSH Facility:[facility] Start: 07-31-2024 End: 07-31-2024 Patient encounter procedure José Luis Sigala MD Work Phone: Orthopaedics Comment on above: Primary osteoarthrit is of right knee (Primary Dx) Start: 07-31-2024 End: 07-31-2024 ambulatory [facility] Facility:[facility] Start: 07-31-2024 End: 07-31-2024 Office outpatient visit 15 minutes Shen Christine PA-C Work Phone: Orthopaedics Comment on above: Primary osteoarthrit is of right knee (Primary Dx) Start: 07-22-2024 End: 07-22-2024 ambulatory [facility] Work Phone: Start: 07-22-2024 End: 07-22-2024 Patient encounter procedure [facility] Work Phone: Start: 07-11-2024 End: 07-11-2024 Telephone encounter Demetria Naranjo MD Work Phone: [facility] Comment on above: Med Refill Start: 06-20-2024 End: 06-21-2024 Refill oPonam Valerio ALARM INVESTIGATOR Work Phone: [facility] 210 Comment on above: Insomnia, unspecifie d type; Polyneuropathy Start: 06-11-2024 End: 06-11-2024 Telephone encounter L[facility] EEG. T. 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] Start: 05-31-2024 End: 05-31-2024 ambulatory Dariana Elli RT(R) Radiology Comment on above: Radiology XR Start: 05-31-2024 End: 05-31-2024 Patient encounter procedure Dariana Elli RT(R) Radiology Comment on above: Primary osteoarthrit is of right knee (Primary Dx); Genu varum of right lower extremity Start: 05-27-2024 End: 05-27-2024 ambulatory POONAM VALERIO Not Available Start: 05-27-2024 End: 05-27-2024 Office outpatient visit 15 minutes Poonam Valerio ALARM INVESTIGATOR Work Phone: [facility] 210 Comment on above: Insomnia, unspecifie d type (Primary Dx); Polyneuropathy Start: 05-14-2024 End: 05-15-2024 Refill Poonam Valerio ALARM INVESTIGATOR Work Phone: [facility] 210 Comment on above: Insomnia, unspecifie d type Start: 04-15-2024 End: 04-15-2024 ambulatory [facility] Work Phone: Start: 04-15-2024 End: 04-15-2024 Patient encounter procedure [facility] Gastro[facility]ology Work Phone: Start: 04-09-2024 End: 04-09-2024 Telephone encounter Demetria Naranjo MD Work Phone: [facility] 210 Start: 04-05-2024 End: 04-05-2024 Bamboo flowsheet Demetria Naranjo MD Work Phone: [facility] Start: 04-05-2024 End: 04-05-2024 Bamboo flowsheet Demetria Naranjo MD Work Phone: [facility] NEUROLOGY Start: 04-05-2024 End: 04-05-2024 Office outpatient visit 25 minutes Demetria Naranjo MD Work Phone: [facility] Comment on above: Polyneuropathy (Prim roberta Dx); Anxiety; Primary insomnia Start: 04-05-2024 End: 04-05-2024 ambulatory DEMETRIA NARANJO Not Available Start: 04-03-2024 End: 04-03-2024 Bamboo flowsheet El Bush MD Work Phone: [facility] Start: 04-03-2024 End: 04-03-2024 Bamboo flowsheet El Bush MD Work Phone: [facility] Start: 04-03-2024 End: 04-03-2024 Office outpatient visit 15 minutes El Bush MD Work Phone: [facility] Comment on above: Mixed hyperlipidemia (CMS/HCC); Euthyroid sick syndrome; Acquired hypothyroidism (CMS/HCC); Chronic fatigue Start: 04-03-2024 End: 04-03-2024 ambulatory EL BUSH Not Available Start: 04-02-2024 End: 04-02-2024 Refill El Bush MD Work Phone: [facility] Comment on above: Acquired hypothyroid ism (CMS/HCC) Start: 03-14-2024 End: 03-14-2024 Telephone encounter Poonam Valerio NP Work Phone: [facility] 210 Comment on above: Med Refill ([place]) Start: 02-26-2024 End: 02-26-2024 ambulatory EL BUSH Not Available Start: 02-12-2024 End: 02-12-2024 ambulatory [facility] Work Phone: Start: 02-12-2024 End: 02-12-2024 Patient encounter procedure [facility] Gastro[facility]ology Work Phone: Start: 01-31-2024 Refill Hayden Shirley MD Work Phone: Rheumatology Comment on above: Refill Request Start: 01-17-2024 Telephone encounter Shen patton PA-C Work Phone: Orthopaedics Comment on above: Patient Update (Call ing regarding gel inijection) Start: 01-08-2024 End: 01-08-2024 ambulatory POONAM VALERIO Not Available Start: 01-01-2024 End: 01-01-2024 [facility] [facility] Work Phone: Start: 01-01-2024 End: 01-01-2024 Patient encounter procedure [facility] Gastroenterology Work Phone: Start: 12-25-2023 End: 12-25-2023 ambulatory MICHAEL PATRICK Not Available Start: 12-15-2023 End: 12-15-2023 Patient encounter procedure Shen Christine PA-C Work Phone: Orthopaedics Comment on above: Primary osteoarthrit is of right knee (Primary Dx) Start: 12-15-2023 End: 12-15-[address] [facility] Facility:[facility] Start: 12-15-2023 End: 12-15-2023 Subsequent hospital visit by physician Mary Sigala 1 Work Phone: Radiology Comment on above: Primary osteoarthrit is of right knee [M17.11] Start: 12-03-2023 Telephone encounter Hayden pérez MD Work Phone: Rheumatology Comment on above: Results Start: 11-29-2023 End: 11-29-2023 ambulatory DEMETRIA NARANJO Not Available Start: 11-27-2023 End: 11-27-[address] [facility] Facility:[facility] Start: 11-27-2023 End: 11-27-2023 Patient encounter procedure Hayden [place] MD Work Phone: Rheumatology Comment on above: Inflammatory arthrit is (Primary Dx); Elevated LFTs; Anemia of chronic disease; Elevated sed rate; Elevated C-reactive protein (CRP); Rheumatoid arthritis of multiple sites without rheumatoid factor (HCC); Neuropathy; Chronic pain of both knees; Secondary osteoarthritis of multiple sites; Chronic pain of both feet; Bilateral hand pain; Heberden's nodes; Chronic pain syndrome; Long-term use of high-risk medication; Long-term use of Plaquenil; Heberden nodes; Family history of systemic lupus erythematosus; Family history of rheumatoid arthritis; Encounter for long-term (current) use of NSAIDs Start: 11-20-2023 End: 11-20-2023 ambulatory YAMILA GONZALEZ Not Available Start: 08-21-2023 End: 08-23-2023 Office outpatient visit 15 minutes El Bush MD Work Phone: [facility] Comment on above: Acute drug withdrawa l syndrome without complication (CMS/HCC) (Primary Dx); Other polyneuropathy; Marijuana use, episodic; Rheumatoid arthritis involving multiple sites with positive rheumatoid factor (CMS/HCC) Start: 08-21-2023 Bamboo flowsheet El turner MD Work Phone: [facility] Start: 08-21-2023 Bamboo flowsheet El turner MD Work Phone: [facility] Start: 08-21-2023 Telephone encounter Hayden pérez MD Work Phone: Rheumatology Comment on above: Medication Problem Start: 07-31-2023 End: 07-31-2023 ambulatory Val Mims Other code-laboration Other Start: 07-31-2023 Office outpatient ne w 30 minutes Val Mims [facility] Gastroenterology Start: 06-14-2023 Refill Hayden [place] MD Work Phone: Rheumatology Comment on above: Refill Request Start: 06-01-2023 Telephone encounter Hayden pérez MD Work Phone: Rheumatology Comment on above: Results Start: 04-19-2023 End: 04-19-2023 ambulatory Sara Bah Other code-laboration Other Start: 04-19-2023 Office outpatient ne w 10 minutes Sara Bah [facility] [place] Start: 03-15-2023 Telephone encounter Shen patton PA-C Work Phone: Orthopaedics Comment on above: Patient Request (Fax PT Order to [facility] in [place], [place]) Start: 03-01-2023 End: 03-01-2023 Patient encounter procedure Shen FARMER-C Work Phone: Orthopaedics Comment on above: Primary osteoarthrit is of right knee (Primary Dx); Effusion of right knee; Chondromalacia of right patella Start: 02-27-2023 End: 02-27-2023 Patient encounter procedure Hayden [place] MD Work Phone: Rheumatology Comment on above: Secondary osteoarthr itis of multiple sites (Primary Dx); Elevated LFTs; Anemia of chronic disease; Vitamin D deficiency; Vitamin B12 deficiency; Cervicalgia; Chronic bilateral low back pain without sciatica; Rheumatoid arthritis of multiple sites without rheumatoid factor (HCC); Elevated sed rate; Elevated C-reactive protein (CRP); Chronic pain of both knees; Chronic pain of both shoulders; Chronic pain of both feet; Bilateral hand pain; Heberden's nodes; Chronic pain syndrome; Long-term use of high-risk medication; Long-term use of Plaquenil Start: 01-09-2023 Refill Hayden [place] MD Work Phone: Rheumatology Comment on above: Refill Request Start: 07-17-2022 Telephone encounter Hayden pérez MD Work Phone: Rheumatology Comment on above: Results Start: 07-14-2022 End: 07-14-2022 Subsequent hospital visit by physician Xr [facility] Radiology Comment on above: Bilateral hand pain [M79.641, M79.642] Start: 07-14-2022 ambulatory Kristen holloway RT(R) Radiology Comment on above: Radiology XR Start: 07-14-2022 Patient encounter procedure Kristen Singh RT(R) [facility] Start: 07-12-2022 End: 07-13-[address] EL BUSH Facility:[facility] Start: 07-11-2022 Telephone encounter Hayden pérez MD Work Phone: Rheumatology Comment on above: Patient Question Start: 07-05-2022 End: 07-05-[address] EL BUSH Facility:[facility] Start: 03-23-[address] DAVION Schneider ty:[facility]1 Start: 12-28-2021 End: 12-29-[address] EL BUSH Facility:[facility] Start: 11-22-2021 End: 11-22-2021 Patient encounter procedure MD El Bush Work Phone: [facility] [place] Start: 09-06-2021 End: 09-06-2021 Patient encounter procedure MD El Bush Work Phone: [facility] [address] Procedures Date Procedure Procedure Detail Performing Clinician Start: 08-14-2024 Ultrasonography of abdomen El ascencio MD Work Phone: Start: 08-06-2024 Esophagogastroduodenoscopy El ascencio MD Work Phone: Start: 05-31-2024 Radiologic exam knee complete 4/more views Shen Scotch PA-C Work Phone: Start: 12-15-2023 Arthrocentesis aspir&/inj major jt/bursa w/o us Shen Scotch PA-C Work Phone: Start: 12-15-2023 Radiologic exam knee complete 4/more views Shen Scotch PA-C Work Phone: Start: 03-01-2023 Lipid 1996 panel - Serum or Plasma Matthew german Scotch PA-C Work Phone: Start: 07-14-2022 Radex hand minimum 3 views Hayden [place] MD Work Phone: Start: 09-06-2021 Plain X-ray of bilateral hands MD El Bush Work Phone: Start: 09-06-2021 X-ray of both knees MD El Bush Work Phone: Start: 10-30-2017 Colonoscopy El Bush MD Work Phone: Plan of Treatment Date Care Activity Detail Author Start: 2036 RSV Vaccine (1 - 1-d ose 75+ series) RSV Vaccine (1 - 1-dose 75+ series) [facility] Start: 03-01-2028 Lipid 1996 panel - S mary beth or Plasma Lipid Screening [facility] Start: 03-01-2028 Lipid panel Lipid Screening [facility] Start: 03-01-2028 LIPID SCREEN LIPID SCREEN [facility] Start: 10-31-2027 Screening for malign ant neoplasm of colon [facility] Start: 09-14-2027 [facility] Start[facility] 11-26-2026 [facility] Start: 05-29-2026 Diabetes Screening Diabetes Screenpr g [facility] Start: 09-13-2025 Creatinine measurement Serum Creatin ine [facility] Start: 01-06-2025 Influenza vaccination Influenza Vacc ine (#1) [facility] Comment on above: Postponed from 03/10 (Patient Refused) Start: 11-26-2024 Creatinine measurement Serum Creatin ine [facility] Start: 11-18-2024 End: 02-17-2025 Basic metabolic 2000 panel - Serum or Plasma BASIC METABOLIC PANEL Lab Routine Pre-op testing Expected: 11/18/2024, Expires: 02/17/2025 [facility] Comment on above: Expected: 11/18/2024 , Expires: 02/17/2025 Start: 11-18-2024 End: 11-18-2024 Patient encounter procedure 11/18/2024 9:45 AM EDT Office Visit Orthopaedics [address] [place] [address] José Luis Sigala MD [address] [place] [address] POST OP RIGHT TKR Orthopaedics Comment on above: POST OP RIGHT TKR Start: 11-07-2024 End: 11-07-2024 Patient encounter procedure 11/07/2024 1:20 PM EDT Office Visit Rheumatology [address] [place] [address] Hayden [place] MD [address] [place] [address] osteoarthritis fu OV 6-12months. Rheumatology Comment on above: osteoarthritis fu OV 6-12months. Start: 11-02-2024 End: 11-02-2024 Patient encounter procedure 11/02/2024 10:00 AM EDT Office Visit Rheumatology [address] [place] [address] Hayden [place] MD [address] [place] [address] osteoarthritis fu OV 6-12months. Rheumatology Comment on above: osteoarthritis fu OV 6-12months. Start: 10-25-2024 End: 10-25-2024 Patient encounter procedure 10/25/2024 10:00 AM EDT Office Visit Orthopaedics [address] [place] [address] Shen Christine PA-C [address] [place] [address] POST OP RIGHT TKR Orthopaedics Comment on above: POST OP RIGHT TKR Start: 10-07-2024 End: 10-07-2024 ambulatory 10/07/2024 10:00 AM EDT Evaluation [facility] [address] [facility] [address] [place] [address] Camilo Cutler, PT [address] [facility] [address] [place] [address] [facility] Start: 10-03-2024 End: 10-03-2024 Admission to same day surgery center 10/03/2024 11:35 AM EDT - 10/03/2024 3:35 PM EDT Surgery Ambulatory Surgery [address] [place] [address] José Luis Sigala MD [address] [place] [address] ARTHROPLASTY REPLACE JOINT TOTAL KNEE Ambulatory Surgery Comment on above: ARTHROPLASTY REPLACE JOINT TOTAL KNEE Start: 10-03-2024 End: 10-03-2024 Arthrp kne condyle&platu medial&lat compartments ARTHROPLASTY REPLACE JOINT TOTAL KNEE Primary osteoarthritis of right knee 10/03/2024 11:35 AM EDT [facility] Start: 10-03-2024 Subsequent hospital visit by physician 10/03/2024 11:35 AM EDT Hospital Encounter Ambulatory Surgery [address] [place] [address] José Luis Sigala MD [address] [place] [address] Primary osteoarthritis of right knee [M17.11] Ambulatory Surgery Comment on above: Primary osteoarthrit is of right knee [M17.11] Start: 10-03-2024 End: 10-03-2024 Admission to same day surgery center 10/03/2024 7:30 AM EDT - 10/03/2024 11:05 AM EDT Surgery Ambulatory Surgery [address] [place] [address] José Luis Sigala MD [address] [place] [address] ARTHROPLASTY REPLACE JOINT TOTAL KNEE Ambulatory Surgery Comment on above: ARTHROPLASTY REPLACE JOINT TOTAL KNEE Start: 10-03-2024 End: 10-03-2024 Arthrp kne condyle&platu medial&lat compartments ARTHROPLASTY REPLACE JOINT TOTAL KNEE Primary osteoarthritis of right knee 10/03/2024 7:30 AM EDT [facility] Start: 10-03-2024 Subsequent hospital visit by physician 10/03/2024 7:30 AM EDT Hospital Encounter Ambulatory Surgery [address] [place] [address] José Luis Sigala MD [address] [place] [address] Primary osteoarthritis of right knee [M17.11] Ambulatory Surgery Comment on above: Primary osteoarthrit is of right knee [M17.11] Start: 09-18-2024 End: 12-18-2024 CBC W Auto Differential panel - Blood COMPLETE BLOOD COUNT AND DIFFERENTIAL Lab Routine Pre-op testing Expected: 09/18/2024, Expires: 12/18/2024 [facility] Comment on above: Expected: 09/18/2024 , Expires: 12/18/2024 Start: 09-18-2024 End: 12-18-2024 Hemoglobin A1c in Blood HEMOGLOBIN A1C Lab Routine Pre-op testing Expected: 09/18/2024 (Approximate), Expires: 12/18/2024 [facility] Work Phone: Comment on above: Expected: 09/18/2024 (Approximate), Expires: 12/18/2024 Start: 09-18-2024 End: 12-18-2024 STAPHYLOCOCCUS AUREUS & MRSA SCREEN, PCR, NASAL STAPHYLOCOCCUS AUREUS & MRSA SCREEN, PCR, NASAL Lab Routine MRSA (methicillin resistant Staphylococcus aureus) Expected: 09/18/2024 (Approximate), Expires: 12/18/2024 [facility] Comment on above: Expected: 09/18/2024 (Approximate), Expires: 12/18/2024 Start: 09-18-2024 End: 12-18-2024 Urinalysis complete panel - Urine URINALYSIS, WITH MICROSCOPIC Lab Routine Frequent urination Expected: 09/18/2024 (Approximate), Expires: 12/18/2024 [facility] Comment on above: Expected: 09/18/2024 (Approximate), Expires: 12/18/2024 Start: 09-16-2024 End: 09-16-2024 Nursing evaluation of patient and report 09/16/2024 10:40 AM EDT Nurse Visit Orthopaedics [address] [place] [address] Doreen, Nurse Eli [address] [place] [address] ANGELINA NURSE CALL RIGHT THR 10/03/24 Orthopaedics Comment on above: ANGELINA NURSE CALL RIGHT THR 10/03/24 Start: 09-13-2024 End: 12-13-2024 Basic metabolic 2000 panel - Serum or Plasma [facility] Work Phone: Comment on above: Expected: 09/13/2024 , Expires: 12/13/2024 Start: 09-13-2024 End: 09-13-2024 Patient encounter procedure 09/13/2024 9:00 AM EST Office Visit Orthopaedics [address] [place] [address] Shen Christine PA-C [address] [place] [address] [facility] RIGHT TKR Orthopaedics Comment on above: [facility] RIGHT TKR Start: 09-12-2024 End: 09-12-2024 Anesthesia consultation 09/12/2024 6:30 AM EST PAT Pre Anesthesia [address] [facility] [address] [place] [address] [phone] VV: Pre Anesthesia Comment on above: VV: Start: 08-30-2024 End: 11-29-2024 CBC W Auto Differential panel - Blood COMPLETE BLOOD COUNT AND DIFFERENTIAL Lab Routine Pre-op testing Expected: 08/30/2024 (Approximate), Expires: 11/29/2024 [facility] Comment on above: Expected: 08/30/2024 (Approximate), Expires: 11/29/2024 Start: 08-28-2024 End: 08-28-2024 Telemedicine consultation with patient 08/28/2024 11:30 AM EST Telemedicine [facility] [address] [facility] [address] GENAO [address] [place] [address], [phone] Poonam Valerio ALARM INVESTIGATOR [address] [facility] [address] Genao [address] [place] [address], [place] [address] [facility] 210 Start: 08-21-2024 End: 11-20-2024 Bacteria identified in Urine by Culture BACTERIAL CULTURE, URINE Microbiology Routine Frequent urination Expected: 08/21/2024, Expires: 11/20/2024 [facility] Comment on above: Expected: 08/21/2024 , Expires: 11/20/2024 Start: 08-19-2024 End: 08-19-2024 Patient encounter procedure 08/19/2024 11:45 AM EST Office Visit Orthopaedics [address] [facility] [place] [address] José Luis Sigala MD [address] [place] [address] SIGALA DISCUSS SURGERY Orthopaedics Comment on above: see DR. SIGALA DISC USS SURGERY Start: 08-12-2024 End: 08-12-2024 Patient encounter procedure 08/12/2024 1:00 PM EST Office Visit Rheumatology [address] include [address] [place] [address] Hayden [place] MD [address] [facility] [place] [address] osteoarthritis fu OV 6-12months. Rheumatology Comment on above: osteoarthritis fu OV 6-12months. Start: 08-06-2024 [facility] Start: 07-31-2024 End: 08-30-2025 XR Knee - right Single view XR KNEE SPECIFY 1V RIGHT Radiology Routine Primary osteoarthritis of right knee Expected: 07/31/2024, Expires: 08/30/2025 [facility] Work Phone: Comment on above: Expected: 07/31/2024 , Expires: 08/30/2025 Start: 07-31-2024 End: 07-31-2024 Patient encounter procedure 07/31/2024 11:30 AM EST Office Visit Orthopaedics [address] [place] [address] Shen Christine PA-C [address] [place] [address] RT Knee 8 week follow up Orthopaedics Comment on above: RT Knee 8 week follo w up Start: 05-27-2024 End: 05-27-2024 Telemedicine consultation with patient 05/27/2024 8:30 AM EST Telemedicine [facility] [address] ARIANNE GENAO [address] [place] [phone] Poonam Valerio, ALARM INVESTIGATOR [address] [place] [address] [facility] 210 Start: 04-05-2024 End: 04-05-2024 Patient encounter procedure [facility] Comment on above: Arrived Start: 04-03-2024 End: 04-03-2024 Patient encounter procedure [facility] Comment on above: Mixed hyperlipidemia (CMS/HCC); Euthyroid sick syndrome; Acquired hypothyroidism (CMS/HCC); Chronic fatigue Start: 03-10-2024 Covid-19 Vaccine () Covid-19 Vaccine () [facility] Start: 03-10-2024 Covid-19 Vaccine (4 - 2024-25 season) Covid-19 Vaccine ( season) [facility] Start: 03-10-2024 Influenza vaccination [facility] Start: 12-18-2023 End: 12-18-2023 Patient encounter procedure 12/18/2023 3:00 PM EDT Office Visit Orthopaedics [address] [place] [address] Shen Christine PA-C [address] [place] [address] RT Knee INJ Orthopaedics Comment on above: RT Knee INJ Start: 11-27-2023 End: 11-26-2024 C reactive protein [Mass/volume] in Serum or Plasma [facility] Comment on above: Expected: 11/27/2023 (Approximate), Expires: 11/26/2024 Start: 11-27-2023 End: 11-26-2024 Comprehensive metabolic 2000 panel - Serum or Plasma [facility] Work Phone: Comment on above: Expected: 11/27/2023 (Approximate), Expires: 11/26/2024 Start: 08-21-2023 End: 08-21-2023 Patient encounter procedure 08/21/2023 4:30 PM EST Office Visit [facility] [address] [place] [address] El [place] MD [address] [place] [address] Arrived [facility] Comment on above: Arrived Start: 07-10-2023 Behavioral Health Screening Behavioral Health Screening [facility] Start: 07-10-2023 Depression Assessment Depression Ass essment [facility] Start: 05-30-2023 End: 02-28-2024 25-hydroxyvitamin D3 [Mass/volume] in Serum or Plasma VITAMIN D 25 HYDROXY Lab Routine Vitamin D deficiency Expected: 05/30/2023 (Approximate), Expires: 02/28/2024 [facility] Work Phone: Comment on above: Expected: 05/30/2023 (Approximate), Expires: 02/28/2024 Start: 05-30-2023 End: 02-28-2024 C reactive protein [Mass/volume] in Serum or Plasma C-REACTIVE PROTEIN (CRP) Lab Routine Elevated sed rate Elevated C-reactive protein (CRP) Expected: 05/30/2023 (Approximate), Expires: 02/28/2024 [facility] Work Phone: Comment on above: Expected: 05/30/2023 (Approximate), Expires: 02/28/2024 Start: 05-30-2023 End: 02-28-2024 CBC panel - Blood by Automated count CBC Lab Routine Anemia of chronic disease Expected: 05/30/2023 (Approximate), Expires: 02/28/2024 [facility] Work Phone: Comment on above: Expected: 05/30/2023 (Approximate), Expires: 02/28/2024 Start: 05-30-2023 End: 02-28-2024 Comprehensive metabolic 2000 panel - Serum or Plasma COMP METABOLIC PANEL Lab Routine Elevated LFTs Expected: 05/30/2023 (Approximate), Expires: 02/28/2024 [facility] Work Phone: Comment on above: Expected: 05/30/2023 (Approximate), Expires: 02/28/2024 Start: 05-30-2023 End: 02-28-2024 Erythrocyte sedimentation rate SED RATE WESTERGREN Lab Routine Elevated sed rate Elevated C-reactive protein (CRP) Expected: 05/30/2023 (Approximate), Expires: 02/28/2024 [facility] Work Phone: Comment on above: Expected: 05/30/2023 (Approximate), Expires: 02/28/2024 Start: 03-10-2023 Covid-19 Vaccine ( season) Covid-19 Vaccine () [facility] Start: 03-10-2023 Covid-19 Vaccine ( season) Covid-19 Vaccine () [facility] Start: 03-10-2023 Influenza vaccination [facility] Start: 02-27-2023 End: 02-28-2024 Cobalamin (Vitamin B12) [Mass/volume] in Serum or Plasma VITAMIN B12 BLOOD Lab Routine Vitamin B12 deficiency Expected: 02/27/2023 (Approximate), Expires: 02/28/2024 [facility] Work Phone: Comment on above: Expected: 02/27/2023 (Approximate), Expires: 02/28/2024 Start: 07-10-2022 DEPRESSION ASSESSMENT DEPRESSION ASS ESSMENT [facility] Start: 03-10-2022 Influenza vaccination INFLUENZA (#1) [facility] Start: 11-22-2021 MRI of head MR head/brain wo/w con [facility] Start: 08-06-2021 COVID-19 VACCINE (3 - Booster for Manfred series) COVID-19 VACCINE (3 - Booster for Manfred series) [facility] Start: 2021 RSV Vaccine (1 - 1-d ose 60+ series) RSV Vaccine (1 - 1-dose 60+ series) [facility] Start: 10-30-2018 Screening for malign ant neoplasm of colon [facility] Start: 2016 PROSTATE CANCER SCREENING DISCUSSION PROSTATE CANCER SCREENING DISCUSSION [facility] Start: 2016 Prostate specific antigen measurement Prostate Cancer Screening Discussion [facility] Start: 01-16-2015 DIABETES SCREEN DIABETES SCREEN [facility] Start: 01-16-2015 Diabetes Screening Diabetes Screenin g [facility] Start: 2011 Pneumococcal Vaccine : 50+ (1 of 1 - PCV) Pneumococcal Vaccine: 50+ (1 of 1 - PCV) [facility] Start: 2011 SHINGRIX VACCINE (1 of 2) SHINGRIX VACCINE (1 of 2) [facility] Start: 2006 COLOGUARD (FIT-DNA) COLOGUARD (FIT-D NA) [facility] Start: 2006 Colonoscopy COLONOSCOPY [facility] Start: 2006 COLORECTAL CANCER SCREENING COLORECTAL CANCER SCREENING [facility] Start: [address] COLONOGRAPHY [facility] Start: 2006 FECAL OCCULT BLOOD FECAL OCCULT BLOO D [facility] Start: 2006 Screening for malign ant neoplasm of colon [facility] Start: 2006 SIGMOIDOSCOPY SIGMOIDOSCOPY [facility] Start: 1996 LIPID SCREEN LIPID SCREEN [facility] Start: 1980 SHINGRIX VACCINE (1 of 2) SHINGRIX VACCINE (1 of 2) [facility] Start: 1980 Urine microalbumin profile [facility] Start: 1979 ANNUAL PCP TEAM RANGE MANAGEMENT SPECIALIST STEPHON DISEASE VISIT ANNUAL PCP TEAM CHRONIC DISEASE VISIT [facility] Start: 1979 Anxiety Screening Anxiety Screening [facility] Start: 1979 Depression Screening Depression Scre ening [facility] Start: 1979 HEPATITIS C SCREENING HEPATITIS C [facility] Start: 1979 Hepatitis C screening Hepatitis C Sc [facility] Start: 1979 HIV SCREENING HIV SCREENING [facility] Start: 1979 HIV screening HIV Screening [facility] Start: 1967 PNEUMOCOCCAL (1 - PCV) PNEUMOCOCCAL (1 - PCV) [facility] Start: 1961 Screening for malign ant neoplasm of colon [facility] ECG COMPLETE ECG COMPLETE ECG Routine Pre-op evaluation Ordered: 09/13/2024 [facility] Comment on above: Ordered: 09/13/2024 Patient Education Gastritis [facility] Work Phone: End: 06-23-2025 XR Knee - right 4 Views XR KNEE GENERAL 4V AP BOTH/PA BOTH/LAT/MERC RIGHT Radiology Routine 1 Occurrences starting 05/24/2024 until 06/23/2025 [facility] Work Phone: Comment on above: 1 Occurrences starti ng 05/24/2024 until 06/23/2025 [facility] Immunizations Immunization Date Immunization Notes Care Provider Fa cility 06-10-2021 Manfred SARS-CoV-2 El arana MD Work Phone: [facility] 11-07-2020 Moderna SARS-CoV-2 Vaccination El [place] MD Work Phone: [facility] 11-06-2020 Manfred SARS-CoV-2 El arana MD Work Phone: [facility] Healthcare Payers Date Payer Category Payer Self-pay [id number] 2011 Private Health Insurance [id number] 1961 Unknown [id number] 2.16.84 [id number] 1961 Unknown [id number] 2.16.84 [id number] 1961 Unknown [id number] 2.16.84 [id number] 1961 Unknown [id number] 2.16.84 [id number] 1961 Unknown [id number] 2.16.84 0.1.099999.3.579.2.1259 1961 Unknown [id number] 2.16.84 0.1.882290.3.579.2.1259 1961 Unknown [id number] 2.16.84 0.1.000680.3.579.2.1259 1961 Unknown [id number] 2.16.84 0.1.785340.3.579.2.1259 1961 Unknown [id number] 2.16.84 0.1.511653.3.579.2.1259 1961 Unknown [id number] 2.16.84 0.1.236065.3.579.2.1259 1961 Unknown [id number] 2.16.84 0.1.554065.3.579.2.1259 1961 Unknown [id number] 2.16.84 0.1.904094.3.579.2.1259 1961 Unknown [id number] 2.16.84 [id number] 1959 Private Health Insurance [id number] Private Health Insurance [id number] Unknown [id number] 2.16.8 [id number] Unknown [id number] 2.16.8 [id number] Social History Date Type Detail Facility Tobacco smoking stat [facility] Unknown if ever smoked [facility] Work Phone: Start: 1960 Sex Assigned At Male [facility] Start: 01-17-2012 End: 03-14-2023 Tobacco smoking status W[place]IS Ex-smoker [facility] Work Phone: Start: 07-10-1981 End: 07-10-1999 History of tobacco use Current smoker [facility] Work Phone: Start: 07-10-1981 End: 07-10-1999 History of tobacco use Cigarette Smoker [facility] [facility] Start: 01-17-2012 End: 09-13-2024 Tobacco use and exposure Smokeless tobacco non-user [facility] Work Phone: Start: 02-24-2022 End: 09-13-2024 Alcohol intake Current non-drinker of alcohol (finding) [facility] Start: 01-17-2012 Alcohol Comment rare [facility] Start: 1960 Sex Assigned At Not on file [facility] Start: 07-14-2022 End: 08-28-2024 History of Social function [facility] Start: 07-14-2022 End: 08-28-2024 Tobacco use panel [facility] Start: 03-14-2023 Tobacco use and exposure Former smokeless tobacco user [facility] Start: 07-17-2023 End: 08-28-2024 Alcohol intake Current drinker of alcohol (finding) [facility] Start: 03-14-2023 Education 21 [facility] Start: 03-14-2023 Tobacco Comment Last smoked : > 10 years [facility] Start: 05-14-2023 Alcohol Comment Caffeine intake : soda [facility] How often to you hav e a drink containing alcohol? Monthly or less [facility] How many standard drinks containing alcohol do you have on a typical day? 1 or 2 [facility] How often do you hav e 6 or more drinks on 1 occasion? Never [facility] Start: 07-22-2024 End: 08-20-2024 Sex Male (finding) [facility] Adult Depression Screening Assessment 4 [facility] Start: 09-05-2024 Gender identity Identifies as male gender (finding) [facility] Start: 09-05-2024 Sexual orientation Heterosexual (finding) [facility] Goals Date Patient Goal Desired Activity /State Personal health goal Clinical Notes 07-12-2022 to 10-03-2024 Telephone Encounter - El Bush MD - 09/30/2024 5:10 PM EDTTelephone Encounter - El Bush MD - 09/30/2024 5:10 PM EDTTelephone Encounter - Ines Pitt - 09/30/2024 4:26 PM EDT Note Date & Type Note Facility 10-03-2024 Note HNO ID: [id number] Author: APRIL PATEL AA Service: ? Author Type: Director Group Sales Type: Anesthesia Procedure Notes Filed: 10/03/2024 10:54 Note Text: ANESTHESIOLOGY PROCEDURE NOTE Airway General Information Procedure Start Time/Medication Administration: 10/03/2024 10:44 AM Procedure End Time: 10/03/2024 10:44 AM Patient location during procedure: OR Patient identity confirmed: arm band and patient sedated or unresponsive Staffing Anesthesiologist: Keegan Boyce II, DO CAA: April Patel AA Performed by: KARIN Indications and Patient Condition Indications for airway management: anesthesia Preoxygenated: yes anesthesia circuit Patient position: sniffing Method: asleep Difficult Mask: No Final Airway Details Final airway type: endotracheal airway Final Endotracheal Airway: ETT Cuffed: yes Successful intubation technique: video laryngoscopy Devices used: ConnectFu Endotracheal tube insertion site: oral Blade: Bernard Blade size: #4 ETT size (mm): 7.5 Measured from: lips Measurement (cm): 20 Placement verified by: capnometry Cormack-Lehane Classification: grade I - full view of glottis Number of attempts at approach: 1 Airway not difficult SIGNATURE: MARY Mortensen PATIENT NAME: Samantha Fraser DATE: October 03, 2024 TIME: 10:53 AM CSN: [id number] [facility] 10-03-2024 Note HNO ID: [id number] Author: KEEGAN BOYCE II, DO Service: Anesthesiology Author Type: Anesthesiologist Type: Anesthesia Procedure Notes Filed: 10/03/2024 09:58 Note Text: ANESTHESIOLOGY PROCEDURE NOTE Peripheral Nerve Block General Information Procedure Start Time/Medication Administration: 10/03/2024 9:30 AM Procedure End time: 10/03/2024 9:38 AM Patient location during procedure: pre-op Timeout Performed Pre-procedure: timeout performed Consent Obtained: Yes Patient identity confirmed: arm band and patient Reason for block: post-op pain management/at surgeon's request Staffing Anesthesiologist: Keegan Boyce II, DO Performed by: anesthesiologist Preparation Sterility Preparation: hand hygiene performed prior to procedure, sterile gloves, drapes, and procedure tray, surgical cap used, mask used, sterile drape used during line insertion, skin prep agent completely dried prior to procedure Sterility Technique Not Completely Performed Due to Extreme Emergency: No Site Prep: Chloraprep Pre-Procedure Neuro Exam Location: RLE Sensory: intact Motor: intact Procedure Details Patient Position: supine Monitoring: NIBP, EKG and Pulse OX Block Type Lower Extremity: distal femoral (adductor canal) Laterality: right Injection Technique: single-shot Ultrasound Guided: Yes Image in Chart: yes Needle Needle Type: sharp Needle Gauge: 21 G Needle Length: 100 mm Needle Localization: ultrasound Assessment Injection assessment: negative aspiration, no paresthesia on injection, incremental injection and local visualized surrounding nerve on ultrasound Paresthesia: none Post-Procedure Neuro Exam Expected Regional Anesthesia: Yes Medications Administered dexamethasone sodium phosphate injection (DECADRON) - peripheral nerve block 4 mg - 10/03/2024 9:30:00 AM fentaNYL 50 mcg/mL injection (SUBLIMAZE) - INTRAVENOUS 100 mcg - 10/03/2024 9:30:00 AM midazolam (PF) injection (VERSED) - INTRAVENOUS 2 mg - 10/03/2024 9:30:00 AM ropivacaine (PF) 5 mg/mL (0.5 %) injection (NAROPIN) - peripheral nerve block 30 mL - 10/03/2024 9:30:00 AM SIGNATURE: Keegan Boyce II, DO PATIENT NAME: Samantha Fraser DATE: October 03, 2024 TIME: 9:55 AM CSN: [id number] [facility] 09-30-2024 Telephone encounter Note Prescription sent [facility] 09-30-2024 Miscellaneous Notes Prescription sent Samantha called, he has had head and chest congestion for several days and now his discharge is turning green. He has a procedure coming up and is asking if Dr. Bush could send something in to [facility] for him? documented in this encounter [facility] 09-30-2024 Telephone encounter Note Samantha called, he has had head and chest congestion for several days and now his discharge is turning green. He has a procedure coming up and is asking if Dr. Bush could send something in to [facility] for him? [facility] 09-16-2024 Note HNO ID: [id number] Author: CANDELARIA CHAN RN Service: ? Author Type: Registered Nurse Type: Progress Notes Filed: 09/16/2024 11:23 Note Text: ORTHOPAEDIC SURGERY PRE-OP PATIENT Samantha Fraser is a 64 year old male PROCEDURE: right Total Knee PROCEDURE DATE: 10/03/24 CHECKLIST: Informed Consent: Yes- In [facility]: No Pre-op Skin Preparation Cloths AND Instructions of Use given to patient: reviewed with this patient during this phone encounter. Nasal Swab completed for patient: Nasal swab was treated. EDUCATION: READINESS TO LEARN COGNITIVE ABILITY: Alert and oriented MOTIVATION TO LEARN: Interested FAMILY SUPPORT: Unable to assess - Family not present INSTRUCTION PROVIDED TO: Patient FACTORS AFFECTING LEARNING: None PHYSICAL LIMITATIONS AFFECTING LEARNING: None ISSUES REVIEWED: EDUCATION TOPIC/ TEACHING POINTS: -Day of Surgery (see below) -Hospital Course -Incision Care -Home PT -Home pain Medication: Refill Protocol, Side Effects -Afterhours Number Given- page ortho resident interface control officer at [phone] METHOD OF INSTRUCTION: Individual instruction, Written instruction - handouts, and Verbal instruction PRE-OPERATIVE INSTRUCTIONS REVIEWED: -Arrival time/location -NPO after midnight -Advanced Directives -ID + insurance card -Bring to hospital: Bipap, Cpap, Non-skid shoes, hearing aids -Do not bring: Excessive money, valuables, jewelry, medications (unless instructed) -Stop NSAIDS 7 days prior to surgery -Stop Aspirin and herbal supplements 10-14 days prior -Reviewed patient handout instructions for Preop Skin Preparation POST-OPERATIVE INSTRUCTIONS: -Call office if questions/concerns -Afterhour for resident interface control officer INFECTION MANAGEMENT: -Signs and symptoms of an infection -Importance of contacting the physician MEDICATION SIDE EFFECTS: -Side effects associated with the medication that warrant a call to the physician WOUND CARE: -Correct procedure to perform wound care DISCHARGE PLAN: -Patient referred to rapid recovery program and [facility] was offered to Patient about Rehab facility/ SNF/ Home care. SUPPLEMENTAL MATERIAL GIVEN: Yes RISK FACTORS: Rheumatoid Arthritis,GERD,CKD,Hyperlipidemia, Hypothyroid and Sleep Apnea FOLLOW-UP PLAN: Patient instructed to call with any further issues If any questions or concerns arise before the surgery, the patient was instructed to call the office for assistance. If there are no further questions or issues, the patient will be seen the day of the procedure, prior to proceeding with surgery. Candelaria Chan RN Patient in for Right Total Knee Arthroplasty with Dr. Sigala, medical consult per . [facility]. Cardiac clearance needed at this time:No Dental clearance needed at this time?No Patient is identified by name and birthdate: Yes Allergies reviewed: Yes Medication- prescribed and OTC reviewed and updated: Yes Latex allergy: no Does the patient have a metal allergy? No Is the patient having any pain?: Yes: Location of pain is in the right knee. Pain Scale: 4 on a scale from 0-10 Pain Character: aching Duration: (How long have you had the pain?) 3 years Frequency: (How often does the pain occur?) occurs constantly Pt. instructed to stop meds per PACC and will take the following meds per anesthesia guidelines per [facility] Anticoagulation therapy consisting of ASA 81 mg twice a day for 4 weeks postop, param hose, compression wraps, and exercise discussed with patient. Pt. has prescription drug coverage. Autologous donation discussed with patient,Pt will receive acid.. Patient lives with his and plans to go home with OP-PT in [place].He uses [facility] for his pharmacy needs. Patient has non-wheeled walker Yes , cane Yes , shower bench No elevated toilet seat No Patient is 180 lbs 12.4 oz and is Height (cm or in): 5'9 Guide to recovery, follow your pathway to recovery after joint replacement surgery materials given to patient prior to end of session. Pt. had no other questions or concerns at this time. Candelaria Chan RN [facility] 09-16-2024 History of Present illness Narrative ORTHOPAEDIC SURGERY PRE-OP PATIENT Samantha Fraser is a 64 year old male PROCEDURE: right Total Knee PROCEDURE DATE: 10/03/24 CHECKLIST: Informed Consent: Yes- In [facility]: No Pre-op Skin Preparation Cloths & Instructions of Use given to patient: reviewed with this patient during this phone encounter. Nasal Swab completed for patient: Nasal swab was treated. EDUCATION: READINESS TO LEARN COGNITIVE ABILITY: Alert and oriented MOTIVATION TO LEARN: Interested FAMILY SUPPORT: Unable to assess - Family not present INSTRUCTION PROVIDED TO: Patient FACTORS AFFECTING LEARNING: None PHYSICAL LIMITATIONS AFFECTING LEARNING: None ISSUES REVIEWED: EDUCATION TOPIC/ TEACHING POINTS: -Day of Surgery (see below) -Hospital Course -Incision Care -Home PT -Home pain Medication: Refill Protocol, Side Effects -Afterhours Number Given- page ortho resident interface control officer at [phone] METHOD OF INSTRUCTION: Individual instruction, Written instruction - handouts, and Verbal instruction PRE-OPERATIVE INSTRUCTIONS REVIEWED: -Arrival time/location -NPO after midnight -Advanced Directives -ID + insurance card -Bring to hospital: Bipap, Cpap, Non-skid shoes, hearing aids -Do not bring: Excessive money, valuables, jewelry, medications (unless instructed) -Stop NSAIDS 7 days prior to surgery -Stop Aspirin and herbal supplements 10-14 days prior -Reviewed patient handout instructions for Preop Skin Preparation POST-OPERATIVE INSTRUCTIONS: -Call office if questions/concerns -Afterhour for resident interface control officer INFECTION MANAGEMENT: -Signs and symptoms of an infection -Importance of contacting the physician MEDICATION SIDE EFFECTS: -Side effects associated with the medication that warrant a call to the physician WOUND CARE: -Correct procedure to perform wound care DISCHARGE PLAN: -Patient referred to rapid recovery program and [facility] was offered to Patient about Rehab facility/ SNF/ Home care. SUPPLEMENTAL MATERIAL GIVEN: Yes RISK FACTORS: Rheumatoid Arthritis,GERD,CKD,Hyperlipidemia, Hypothyroid and Sleep Apnea FOLLOW-UP PLAN: Patient instructed to call with any further issues If any questions or concerns arise before the surgery, the patient was instructed to call the office for assistance. If there are no further questions or issues, the patient will be seen the day of the procedure, prior to proceeding with surgery. Canedlaria Chan RN Patient in for Right Total Knee Arthroplasty with Dr. Sigala, medical consult per . [facility]. Cardiac clearance needed at this time:No Dental clearance needed at this time?No Patient is identified by name and birthdate: Yes Allergies reviewed: Yes Medication- prescribed and OTC reviewed and updated: Yes Latex allergy: no Does the patient have a metal allergy? No Is the patient having any pain?: Yes: Location of pain is in the right knee. Pain Scale: 4 on a scale from 0-10 Pain Character: aching Duration: (How long have you had the pain?) 3 years Frequency: (How often does the pain occur?) occurs constantly Pt. instructed to stop meds per [facility] and will take the following meds per anesthesia guidelines per [facility] Anticoagulation therapy consisting of ASA 81 mg twice a day for 4 weeks postop, param hose, compression wraps, and exercise discussed with patient. Pt. has prescription drug coverage. Autologous donation discussed with patient,Pt will receive acid.. Patient lives with his and plans to go home with OP-PT in [place].[facility] uses [facility] needs. Patient has non-wheeled walker Yes , cane Yes , shower bench No elevated toilet seat No Patient is 180 lbs 12.4 oz and is Height (cm or in): 5'9 Guide to recovery, follow your pathway to recovery after joint replacement surgery materials given to patient prior to end of session. Pt. had no other questions or concerns at this time. Candelaria Chan RN documented in this encounter [facility] 09-13-2024 History and physical note Images from the original note were not included. HISTORY AND PHYSICAL EXAMINATION SERVICE DATE: 09/13/2024 SERVICE TIME: 2:17 PM PRIMARY CARE PHYSICIAN: El Bush MD, MD REASON FOR VISIT: Samantha Fraser is a 64 year old male who is scheduled for Right - ARTHROPLASTY REPLACE JOINT TOTAL KNEE at the request of Dr. José Luis Sigala for consultation. My final recommendation will be communicated back to the requesting physician by way of shared medical record or letter. Assessment ANDREW (obstructive sleep apnea) Assessment: patient is not CPAP compliant Mixed hyperlipidemia Assessment: stable with current medication regimen Sleep disorder Assessment: takes lunesta to sleep Gastroesophageal reflux disease Assessment: Managed and stable with current medication. Denies difficulty swallowing or any bleeding. Chronic kidney disease, stage 2 (mild) Assessment: Stable, asymptomatic BUN Date Value Ref Range Status 11/27/2023 19 9 - 24 mg/dL Final 05/29/2023 19 9 - 24 mg/dL Final 01/17/2012 17 10 - 25 mg/dL Final Creatinine Date Value Ref Range Status 11/27/2023 1.01 0.73 - 1.22 mg/dL Final 05/29/2023 1.15 0.73 - 1.22 mg/dL Final 01/17/2012 1.09 0.70 - 1.40 mg/dL Final Hypothyroid Assessment: stable with current medication regimen Rheumatoid arthritis involving multiple sites with positive rheumatoid factor (HCC) Assessment: stable on plaquenil ANESTHESIA FINDINGS: Intubation History: No history of difficult intubation Significant Anesthesia Considerations: none Airway History: No history of difficult airway [place] Activity Status Index: METS: Walk indoors, such as around the house (1.75 METs) Do light work around the house, such as dusting or washing dishes (2.70 METs) Take care of self; that is eating, dressing, bathing, using the toilet (2.75 METs) Walk a block or two on level ground (2.75 METs) Do moderate work around the house, such as vacuuming, sweeping floors, or carrying in groceries (3.50 METs) Do yardwork, such as raking leaves, weeding, or pushing a power mower (4.50 METs) Climb a flight of stairs or walk up a hill (5.50 METs) Participate in moderate recreational activites, such as golf, bowling, dancing, doubles tennis, or throwing a baseball or football (6.00 METs) DASI Score: 29.45 Patient denies any chest pain or undue shortness of breath with the above physical activity. Clinical Frailty Scale: 2. Well STOP-Bang Score: Snores loudly Has or is being treated for high blood pressure Patient over 50 years old Male patient Denies feeling tired, fatigued, or sleepy during the daytime Has not been observed to stop breathing or choking/gasping during sleep BMI less than or equal to 35 kg/m^2 Does not have a large neck STOP-Bang Score: 4 [id number] Score: Age: <65 Sex: male CHF history: No Hypertension history: No Stroke/TIA/thromboembolism history: No Vascular disease history: No Diabetes history: No [id number] Score: 0 ARISCAT Score: Age: 51-80 Preoperative SpO2: >=96% Respiratory infection in the last month: No Duration of surgery: >3 hrs Emergency procedure: No ARISCAT Score: I - PHYSICAL EVALUATION AIRWAY Patient intubated: No. Tracheostomy tube not present Mallampati: II. TM distance: >3 FB. Neck ROM: full ROM without neurological symptoms. Mouth opening: adequate. Short neck: no. Thick neck: no Eckert present: yes Lip Bite Test: II Microretrognathia/Micronagthia/Rec essed Chin: No DENTAL Dental findings: teeth intact. II - ANESTHESIA PLAN Anesthetic plan additional comments: *PACC/TCI - anesthesia choice. Beta Acosta Monitoring Plan Post Procedure Analgesic Plan Prepared for surgery: This patient is optimally prepared for surgery. CONSULTS: Patient does not require consults for optimization at this time. The Following Tests/Procedures Have Been Initiated: Dr. Bernardo anglin Planned Anesthetic: Per anesthesia choice Subjective CHIEF COMPLAINT: Primary osteoarthritis of right knee [M17.11] HPI: Patient is a 64 year old MALE presenting for pre-op evaluation for the above procedure. Patient denies any chest pain, shortness of breath, palpitations, fever/chills, nausea/vomiting, fatigue, or diarrhea. REVIEW OF SYSTEMS: PAIN ASSESSMENT: Pain Pain Level: 5 Pain Location: Knee-Right Description: Stabbing Duration Units: Years Frequency: Continuous General: No weight loss, malaise or fevers. Neuro: No history of TIA's, stroke, LENS GENERATOR tumor, impaired sensorium, hemiplegia, paraplegia or quadraplegia. No neurological symptoms or problems. Respiratory: Positive for ANDREW, former smoker quit in 1999, Negative for Current cough, Pneumonia within 6 weeks (date) Cardiovascular: Positive for: HLD, Negative for CAD, Chest Pain, CHF, DVT/PE GI: Positive for GERD, Negative for Vomiting, Abdominal pain, Difficulty swallowing : CKD Endocrine: hypothyroidism Hematology: No history of bleeding or clotting disorder. Pt is not taking anti-coagulation or platelet medications. No history of hematological symptoms or problems. Oncology: No history of CA metastasis, chemo within 30 days, or radiotherapy within 90 days. Has not lost 10% of body wt in 6 months. No history of oncological symptoms or problems. Implanted Devices: No Psych: anxiety Marijuana use: No Musculoskeletal: rheumatoid arthritis, Primary osteoarthritis of right knee [M17.11] Skin: Negative for lesions, rash and itching. The patient has the following: ACTIVE PROBLEM LIST Hypothyroid Sleep Disorder Fatigue Encounter for Long-Term (Current) Use of Nsaids Long-Term Use of High-Risk Medication Long-Term Use of Plaquenil Family History of Rheumatoid Arthritis Family History of Systemic Lupus Erythematosus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 (Lipitor) 40 MG tablet Take 1 tablet (40 mg) by mouth Daily 30 tablet 0 Biotin Maximum Strength 64571 MCG tablet TAKE 1 TABLET (10 MG) BY MOUTH IN THE MORNING AND 1 TABLET(10 MG) BEFORE BEDTIME. 60 tablet 2 eszopiclone (Lunesta) 3 MG tablet Take 1 tablet (3 mg) by mouth at bedtime 30 tablet 0 famotidine (Pepcid) 40 MG tablet Take 40 mg by mouth Daily hydroxychloroquine (Plaquenil) 200 MG tablet TAKE 1 TABLET BY MOUTH TWICE DAILY WITH FOOD, HAVE YEARLY EYE EXAM Oral for 15 Days levothyroxine (Synthroid, Levoxyl) 75 MCG tablet Take 1 tablet (75 mcg) by mouth 1 (one) time each day at the same time 30 tablet 0 melatonin 10 MG tablet Take 1 tablet by mouth at bedtime. nortriptyline (Pamelor) 25 MG capsule Take 2 capsules (50 mg) by mouth at bedtime 180 capsule 3 omeprazole (PriLOSEC) [address] capsule Take 40 mg by mouth Daily ondansetron (Zofran) 4 MG tablet Take by mouth every 8 (eight) hours if needed pregabalin (Lyrica) 100 MG capsule Take 100 mg by mouth in the morning and 100 mg in the evening and 100 mg before bedtime. sucralfate (Carafate) 1 g tablet Take 1 g by mouth every 6 (six) hours No current facility-administered medications on file prior to visit. 1. Mixed hyperlipidemia (CMS/HCC) Reviewed laboratories and he is to goal. atorvastatin (Lipitor) 40 MG tablet [[id number]] Order Details Dose: 40 mg Route: Oral Frequency: Daily Dispense Quantity: 90 tablet Refills: 3 Sig: Take 1 tablet (40 mg) by mouth Daily 2. Euthyroid sick syndrome Chronic problem that is clinically stable. 3. Acquired hypothyroidism (CMS/HCC) Chronic problem that is stable. In prescribing a renewal to their current medication, consideration of the following encompasses moderate decision making; the current prescriptions and supplements, the current allergies and medication intolerances, current medical conditions, and potential drug interactions. Any changes to risks, benefits, and reason for renewing their current medication due to the above were discussed. The patient was given a chance to ask questions today and all questions were answered. The patient is to contact us if any other questions arise or if any problems occur. (Utilizing the original guidelines or the 2020 office/outpatient code guidelines for selecting the level of E/M service, In both sets of guidelines, prescription drug management appears in the moderate medical decision making (MDM) row. Neither the original guidelines nor the new guidelines state that a new prescription or change is needed in order to credit prescription drug management) - levothyroxine (Synthroid, Levoxyl) 75 MCG tablet; Take 1 tablet (75 mcg) by mouth 1 (one) time each day at the same time Dispense: 30 tablet; Refill: 11 4. Chronic fatigue Chronic problem, stable, complex in nature with moderate decision making. 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 We discussed how this is improved significantly. We discussed that the patient will almost certainly need to continue to make lifestyle changes including diet, sleep, exercise, and stress management as appropriate. We discussed how this is almost always a multifactorial problem. We further discussed how we will continue to search for refinements in their current treatments or evaluation for further disease processes and then support or treat them as appropriate. We discussed how we can frequently improve the symptoms, but may not be able to completely cure or resolve the issue. The patient was given a chance to ask questions and all questions were answered. documented in this [facility]09-05-2024 Telephone encounter Note* Telephone Encounter - Poonam Valerio NP - 03/14/2024 9:31 AM EDT Sent. OARRS reviewed. [id number] Miscellaneous Notes* Telephone Encounter - Poonam Valerio NP - 03/14/2024 9:31 AM EDT Sent. OARRS reviewed. * Telephone Encounter - Cady Mora - 03/14/2024 8:47 AM EDT Pt called in requesting refill of Lunesta documented in this [facility]09-05-2024 Telephone encounter Note* Telephone Encounter - Cady Mora - 03/14/2024 8:47 AM EDT Pt called in requesting refill of Lunesta [id number] Telephone encounter Note* Telephone Encounter - Hayden Shirley MD - 01/31/2024 2:47 PM EDT Notify patient medication sent as requested Thank you. Patient's request for medication is as follows: Requested Prescriptions Pending Prescriptions Disp Refills meloxicam (MOBIC) 15 mg tablet [Pharmacy Med Name: MELOXICAM 15 MG TABLET] 30 tablet 11 Sig: TAKE 1 TABLET BY MOUTH ONCE DAILY. TAKE WITH FOOD. FOR PAIN Prescription(s) as above. Please process accordingly. Hayden Shirley MD [facility]07-24-2024 Miscellaneous Notes* Telephone Encounter - Hayden Shirley MD - 01/31/2024 2:47 PM EDT Notify patient medication sent as requested Thank you. Patient's request for medication is as follows: Requested Prescriptions Pending Prescriptions Disp Refills meloxicam (MOBIC) 15 mg tablet [Pharmacy Med Name: MELOXICAM 15 MG TABLET] 30 tablet 11 Sig: TAKE 1 TABLET BY MOUTH ONCE DAILY. TAKE WITH FOOD. FOR PAIN Prescription(s) as above. Please process accordingly. Hayden Shirley MD * Telephone Encounter - Vikas Paniagua MA - 01/31/2024 8:35 AM EDT Images from the original note were not included. Most recent Rheumatology visit: 11/27/2023 (with Hayden Shirley) Rheumatology Care Team: None on file Recent Office Visits - This Specialty 11/27/2023 Inflammatory arthritis Rheumatology Hayden Shirley MD 02/27/2023 Secondary osteoarthritis of multiple sites Rheumatology Hayden Shirley MD 07/14/2022 Inflammatory arthritis Rheumatology Hayden Shirley MD Upcoming Rheumatology Appointments - Next 365 Days Visit Type Date Time Department [facility] 08/12/2024 1:00 PM [facility] Last Ophthalmology Check for Plaquenil (Hydroxychloroquine) Last OCT Macula Exam No resulted procedures found. Last Visual Field Exam No resulted procedures found. CBC: Latest Ref Rng & Units 05/29/2023 11/27/2023 CBC WBC 3.70 - 11.00 k/uL 7.18 7.71 Hemoglobin 13.0 - 17.0 g/dL 15.9 14.9 Hematocrit 39.0 - 51.0 % 46.4 45.3 Platelet Count 150 - 400 k/uL 226 227 Vitamin D: None on file in the last 6 months LFT: Latest Ref Rng & Units 05/29/2023 11/27/2023 CMP Sodium 136 - 144 mmol/L 139 139 Potassium 3.7 - 5.1 mmol/L 4.4 4.1 Chloride 97 - 105 mmol/L 103 102 CO2 22 - 30 mmol/L 27 24 Glucose 74 - 99 mg/dL 120 89 BUN 9 - 24 mg/dL 19 19 Creatinine 0.73 - 1.22 mg/dL 1.15 1.01 Calcium 8.5 - 10.2 mg/dL 9.9 9.3 AST 14 - 40 U/L 24 27 ALT 10 - 54 U/L 27 26 Alkaline Phosphatase 38 - 113 U/L 58 55 Hepatic Function: Creatinine: Latest Ref Rng & Units 05/29/2023 11/27/2023 Creatinine Creatinine 0.73 - 1.22 mg/dL 1.15 1.01 ESR/CRP: Latest Ref Rng & Units 05/29/2023 11/27/2023 ESR, WSR WSR 0 - 15 mm/hr 2 2 Latest Ref Rng & Units 05/29/2023 11/27/2023 CRP CRP <0.9 mg/dL <0.3 <0.3 Uric Acid: None on file in the last 6 months Open Standing (Multiple Instance) Lab Orders None Open Future (Single Instance) Lab Orders None [facility] Tele[facility] encounter Note * Telephone Encounter - Vikas Paniagua MA - 01/31/2024 8:35 AM EDT Images from the original note were not included. Most recent Rheumatology visit: 11/27/2023 (with Hayden Shirley) Rheumatology Care Team: None on file Recent Office Visits - This Specialty 11/27/2023 Inflammatory arthritis Rheumatology Hayden Shirley MD 02/27/2023 Secondary osteoarthritis of multiple sites Rheumatology Hayden Shirley MD 07/14/2022 Inflammatory arthritis Rheumatology Hayden Shirley MD Upcoming Rheumatology Appointments - Next 365 Days Visit Type Date Time Department [facility] 08/12/2024 1:00 PM [facility] Last Ophthalmology Check for Plaquenil (Hydroxychloroquine) Last OCT Macula Exam No resulted procedures found. Last Visual Field Exam No resulted procedures found. CBC: Latest Ref Rng & Units 05/29/2023 11/27/2023 CBC WBC 3.70 - 11.00 k/uL 7.18 7.71 Hemoglobin 13.0 - 17.0 g/dL 15.9 14.9 Hematocrit 39.0 - 51.0 % 46.4 45.3 Platelet Count 150 - 400 k/uL 226 227 Vitamin D: None on file in the last 6 months LFT: Latest Ref Rng & Units 05/29/2023 11/27/2023 CMP Sodium 136 - 144 mmol/L 139 139 Potassium 3.7 - 5.1 mmol/L 4.4 4.1 Chloride 97 - 105 mmol/L 103 102 CO2 22 - 30 mmol/L 27 24 Glucose 74 - 99 mg/dL 120 89 BUN 9 - 24 mg/dL 19 19 Creatinine 0.73 - 1.22 mg/dL 1.15 1.01 Calcium 8.5 - 10.2 mg/dL 9.9 9.3 AST 14 - 40 U/L 24 27 ALT 10 - 54 U/L 27 26 Alkaline Phosphatase 38 - 113 U/L 58 55 Hepatic Function: Creatinine: Latest Ref Rng & Units 05/29/2023 11/27/2023 Creatinine Creatinine 0.73 - 1.22 mg/dL 1.15 1.01 ESR/CRP: Latest Ref Rng & Units 05/29/2023 11/27/2023 ESR, WSR WSR 0 - 15 mm/hr 2 2 Latest Ref Rng & Units 05/29/2023 11/27/2023 CRP CRP <0.9 mg/dL <0.3 <0.3 Uric Acid: None on file in the last 6 months Open Standing (Multiple Instance) Lab Orders None Open Future (Single Instance) Lab Orders None [facility]07-10-2024 Telephone encounter Note* Telephone Encounter - Shen Christine PA-C - 01/17/2024 2:33 PM EDT called patient and he had gel injection and stated no help and no help from cortisone He wlll call me if interested in talking to Dr. Sigala to talk about surgical options Shen Christine PA-C [facility]07-10-2024 Miscellaneous Notes* Telephone Encounter - Shen Christine PA-C - 01/17/2024 2:33 PM EDT called patient and he had gel injection and stated no help and no help from cortisone He thull call me if interested in talking to Dr. Sigala to talk about surgical options Shen Christine PA-C [facility] Telephone encounter Note * Telephone Encounter - Gato Dimas - 01/17/2024 10:38 AM EDT Patient called to inform you that the gel injection he recently has did not work. He would like to see what other options there are, such as cortisone? Informed the patient that I would pass along the information and someone would likely be reaching out. Contact number is [phone] [facility]07-10-2024 Miscellaneous Notes* Telephone Encounter - Gato Dimas - 01/17/2024 10:38 AM EDT Patient called to inform you that the gel injection he recently has did not work. He would like to see what other options there are, such as cortisone? Informed the patient that I would pass along the information and someone would likely be reaching out. Contact number is [phone] [facility]06[facility] Evaluation note* Author [facility] Authored January 01, 2024 10:5 5am Patient is positive for dysp epsia, specifically nausea. Nausea occurs most days with multiple episodes. Patient has been utilizing meloxicam for foot related issues and this is since stopped. Having stopped his meloxicam patient has noted some improvement of his nausea. With ongoing presence however patient recommended to increase his medication regimen Author [facility] Authored February 12, 2024 2:2 5pm Patient positive for 2 insta nces of nausea daily. Patient was previously having instances 4 times daily. Patient dyspepsia otherwise under good control. Patient negative for constipation and abdominal pain [facility] Work Phone: [phone]) 979-137606-07-2024 NoteHNO ID: [id number] Author: SHEN CHRISTINE PA-C Service: ? Author Type: Physician Band Tacker Type: Progress Notes Filed: 12/15/2023 13:30 Note Text: Patient is in for recheck of his right knee. He notes that he had no real relief with cortisone in the past. The meloxicam is helping but he is being worked up for a GI ulcer. Should discontinue the meloxicam. X-rays today show progression of his medial compartment arthritis down to [id number]. Not ready to consider surgery at the present time. Will proceed with lubricant injections today. Rationale expectation were discussed. He wishes to proceed. Will continue use of his brace which does help some. Report back how he is doing in 4 to 6 weeks. Otherwise follow-up as needed. Problem List Items Addressed This Visit Primary osteoarthritis of right knee - Primary Relevant Orders XR KNEE GENERAL 4V AP BOTH/PA BOTH/LAT/MERC RIGHT (Completed) Large Joint Arthro/Inj: R knee joint Large Joint Arthro/Inj: R knee joint Informed Consent Consent Obtained: Verbal [place] Protocol A moment to CARE was completed. SIGN IN Personnel directly involved with the procedure wore the appropriate PPE. Special Equipment: N/A Patient/Surrogate Stated/Verified: Patient name, Date of , Relevant allergies and Intended procedure TIME OUT Intended patient and procedure match the source document(s). Consent documented and matches the intended procedure. Relevant labs, photos, and/or imaging studies have been reviewed. Correct side/site marked and visible. Medications required for procedure verified. No fire risk assessment and interventions applicable. No implant(s) inserted. 12/15/2023 12:48 PM The procedure site was prepped in the usual sterile fashion. Site: R knee joint Medications: 3 mL hyaluronate sodium, stabilized 60 mg/3 mL Outcome: Tolerated well, no immediate complications Post-injection instructions were reviewed with the patient and the patient voiced understanding of these instructions. SIGN OUT No specimen collected. No instruments, equipment or retained foreign bodies applicable. Post-procedure follow-up management communicated and Plan of Care Visit completed when applicable Third-alliance party verified by Ene Sargent MA.[facility]06-07-2024 History of Present illness Narrative* Shen Christine PA-C - 12/15/2023 1:21 PM EDTAssociated Order(s): Large Joint Arthro/Inj: R knee joint Post-Procedure Diagnose(s): Primary osteoarthritis of right knee Patient is in for recheck of his right knee. He notes that he had no real relief with cortisone in the past. The meloxicam is helping but he is being worked up for a GI ulcer. Should discontinue the meloxicam. X-rays today show progression of his medial compartment arthritis down to [id number]. Not ready to consider surgery at the present time. Will proceed with lubricant injections today. Ratio nale expectation were discussed. He wishes to proceed. Will continue use of his brace which does help some. Report back how he is doing in 4 to 6 weeks. Otherwise follow-up as needed. Problem List Items Addressed This Visit Primary osteoarthritis of right knee - Primary Relevant Orders XR KNEE GENERAL 4V AP BOTH/PA BOTH/LAT/MERC RIGHT (Completed) Large Joint Arthro/Inj: R knee joint Large Joint Arthro/Inj: R knee joint Informed Consent Consent Obtained: Verbal [place] Protocol A moment to CARE was completed. SIGN IN Personnel directly involved with the procedure wore the appropriate PPE. Special Equipment: N/A Patient/Surrogate Stated/Verified: Patient name, Date of , Relevant allergies and Intended procedure TIME OUT Intended patient and procedure match the source document(s). Consent documented and matches the intended procedure. Relevant labs, photos, and/or imaging studies have been reviewed. Correct side/site marked and visible. Medications required for procedure verified. No fire risk assessment and interventions applicable. No implant(s) inserted. 12/15/2023 12:48 PM The procedure site was prepped in the usual sterile fashion. Site: R knee joint Medications: 3 mL hyaluronate sodium, stabilized 60 mg/3 mL Outcome: Tolerated well, no immediate complications Post-injection instructions were reviewed with the patient and the patient voiced understanding of these instructions. SIGN OUT No specimen collected. No instruments, equipment or retained foreign bodies applicable. Post-procedure follow-up management communicated and Plan of Care Visit completed when applicable Third-alliance party verified by Ene Sargent MA. [facility] Instructions* Patient Instructions* Shen Christine PA-C - 12/15/2023 1:09 PM EDT POST HYALURONIC ACID INJECTION CARE: -Today you received an injection with a Hyaluronic Acid (gel one, euflexxa, synvisc one, etc) -No swimming or soaking for 24 hours to avoid infecting the injection site -Avoid heavy activity for 24-48 hours or until any pain from the injection subsides. -Ice 15-20 minutes several times for the next day or so or until pain subsides. -tylenol for pain -every injection carries the risk of infection. If you experience increased redness, swelling, pain, fever, chills, or other concern for infection pleasec ontact our office immediately. If night or weekend, go to nearest emergency room. -Call or send a PLAYD8 message to let us know how you are doing approximately 6 weeks after the last injection in regards to the following: Are you less achy? Are you less stiff? Did the injection(s) help? Discontinue Meloxicam due to stomach irritation. documented in this [facility]06-[facility]-2024 NoteHNO ID: [id number] Author: VAL CHAPMAN RT(R) Service: ? Author Type: Technologist Type: Progress Notes Filed: 12/15/2023 12:02 Note Text: Radiology Service Progress Note PATIENT NAME: Samantha Fraser DATE OF SERVICE: December 15, 2023 TIME: 12:02 PM PATIENT IDENTITY VERIFICATION COMPLETED USING TWO (2) IDENTIFIERS: Name and Date of confirmed by patient verbally. FALL SCREENING: Has the patient had 2 falls in the last year or 1 fall with injury or currently using an Ambulatory Assistive Device (Walker, Cane, Wheelchair, Crutches, etc.)? No PATIENT GENDER DATA: Male PATIENT RELEVANT IMPLANT DATA REVIEWED: Not Applicable PATIENT PRESENTS WITH AN IMPLANTABLE OR ATTACHED BINGO CALLER: No RADIOLOGY DEPARTMENT: General X-ray: Exam(s) Completed: Lower Extremity X-Ray(s): Knee, AP / Lat / Tunne / Merchant Right and Wt. Bearing PERIPHERAL IV DATA: Not applicable SIGNED BY: RT Daniel(R) December 15, 2023 12:02 [facility]05-28-2024 Telephone encounter Note* Telephone Encounter - Vikas Paniagua MA - 12/05/2023 11:11 AM EDT Spoke to pt aware of results and recommendations. [facility]05-28-2024 Miscellaneous Notes* Telephone Encounter - Vikas Roland MA - 12/05/2023 11:11 AM EDT Spoke to pt aware of results and recommendations. * Telephone Encounter - Hayden Shirley MD - 12/03/2023 2:39 PM EDT Please Call patient: normal labs and no inflammation. Happy to further review and discuss at follow up visit. Continue rest of treatment plan per instructions at last office visit. Thank you. 11/27/23 normal cbc, cmp, esr 2, crp<0.3; documented in this [facility]05-[facility]-2024 Telephone encounter Note * Telephone Encounter - Hayden Shirley MD - 12/03/2023 2:39 PM EDT Please Call patient: normal labs and no inflammation. Happy to further review and discuss at follow up visit. Continue rest of treatment plan per instructions at last office visit. Thank you. 11/27/23 normal cbc, cmp, esr 2, crp<0.3; [facility]05-20-2024 History of Present illness Narrative* Hayden Shirley MD - 11/27/2023 1:40 PM EDT Face to face follow up for joint pain/ osteoarthritis Today's visit 11/27/23:due for labs. taking baclofen, plaquenil 2tabs daily, hydroxyzine, mobic, lyrica 75mg 3times a day, no recent oral steroids (it helps but does not like the side effects of bloating and insomnia). 07/2023 eye exam, no medication toxicity. 08/2023 lost lyrica, difficulty opening bottles 05/29/23 borderline glucose 120;normal rest of cmp, cbc, esr 2, crp<0.3, vitamin D 67; 03/15/23 PT not:will benefit from skilled PT services to help improve keen ROM/strength. Recommend outpatient PT 2 x week x 4weeks 03/06/23 normal vitamin [id number] (988) 02/27/23 knee xrays-shows osteoarthritis and tendinopathy Off balance due to feet neuropathy RLE gives out, fallen a few times. Dirt work/yardwork for exercise. Left hands swelling in AM. Chronic current pain in L>R hands, R>L knees, feet. Sharp pain in legs/feet. Reports pain 4/10. Has 30min minimal AM stiffness. GI upset stomach ulcer, worse lately, due to see GI. Feels safe at home. Has enough food, supplies and medications. Overall uncomfortable but happy with rheum care. No falls/fx/trauma/illness/oral sores/rash/hairloss/jaw pain/dysphagia/epistaxis/hemoptysis since last visit. No adverse effects with meds. No other complaints. Patient denies fever, chills, cp, dyspnea, nausea, vomiting, night sweats, scalp tenderness, visual changes, garza, bowel/bladder changes, weight changes or other complaints. Last visit supportive care, consult ortho, initially improved with plaquenil/restart 2tabs daily,start photoprotection, see ophthalmology, improved with lyrica increase 75mg 3times a day/notify office if not tolerated, improved with prednisone pack/take for flares, when off steroids, start prn heat/ice/otc arthritis creams, low impact weightbearing exercise as tolerated, avoid aggravating triggers, see neurology, see ortho/due for injections, consult pain clinic for jail pain recommendations, 02/27/23:due for labs. taking lyrica, OFF celebrex, baclofen, thyroid medication, plaquenil 1tab daily. No recent oral steroids. Worse pain with increased activity, works himself doing home projects, no assistance. Due to for CPAP. limited exercise. ankle and fingers, knees swelling in AM. Unable toget rings off. Might knee TKR, no response with steroid injections. 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 Reports pain 4-10/10. Has minimal AM stiffness. COVID vaccine 11/07/22, 06/11/21. Feels safe at home. Has enough food, supplies and medications. Overall uncomfortable but happy with rheum care. No falls/fx/trauma/illness/oral sores/rash/hairloss/jaw pain/dysphagia/epistaxis/hemoptysis since last visit. No adverse effects with meds. No other complaints. Patient denies fever, chills, cp, dyspnea, nausea, vomiting, night sweats, scalp tenderness, visual changes, garza, bowel/bladder changes, weight changes or other complaints. Last visit suppor tive care, improved with plaquenil/restart 2tabs daily,start photoprotection, see ophthalmology, improved with lyrica increase 50mg twice a day/notify office if not tolerated, improved with prednisone pack/take for flares, when off steroids/may take prn celebrex, start prn heat/ice/otc arthritis creams, low impact weightbearing exercise as tolerated, avoid aggravating triggers, see neurology, seeortho/due for injections, see primary care provider/pain clinic for machine long goods helper pain recommendations, July 14, 2022 SUBJECTIVE Mr. Fraser is a 61 year old male who presents for rheumatoid arthritis eval. 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 due to pain, family members quit playing guitar due to hand arthritis Idiopathic Neuropathy of both feet/ankles/calves L>R since summer 2021, saw neurology Did not tolerate neurontin All over pain Better with lyrica 25mg 3times a day, Interested in higher dose Saw Did not get to try colchicine, improved with prednisone (last dose last week), No response tylenol, Improved with plaquenil 2tabs daily, ran out 2weeks, and more pain without med Minimal response celebrex, baclofen Last year eye exam , stable, re exam this month Reports pain 3-10/17 No falls/fx/trauma/illness/oral sores/rash/hairloss/jaw pain/dysphagia/epistaxis/hemoptysis. No adverse effects with meds. No other complaints. Patient denies fever, chills, cp, dyspnea, nausea, vomiting, night sweats, scalp tenderness, visual changes, garza, bowel/bladder changes, weight changes or other complaints. COMPLETE REVIEW OF SYSTEMS: RHEUM. ROS:R dominant Joint pain: yes- DIPs L>R, knees, R>L knee, R>L shoulder, neck Joint swelling: yes Swelling of knees, hands, fingers, worse in AM Am stiffness: yes 15min Low back pain: yes Dactylitis: no H/o precedent/frequent infection(s): no Enthesopathy/Sis's/heel/plantar tenderness: no Skin thickening, psoriasis, photosensitivity, purpura: no Nail changes: no Alpecia, patchy: no Eye inflammation: yes glasses SICCA: dry eyes, uses over the counter eye drops, cry mouth Oral/nasal/genital ulcers: no GI problems-diarrhea/bleeding/IBD/Gluten intolerence/Dysphagia: gerd Raynaud's phenomenon/digital ulcers: no Organ inv-Serositis: no Lung disease/ILD: no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 pain of both knees Secondary osteoarthritis of multiple sites Osteoarthrosis involving, or with mention of more than one site, but not specified as generalized, multiple sites Chronic pain of both feet Bilateral hand pain Pain in limb Heberden's nodes Generalized osteoarthrosis, involving hand Chronic pain syndrome Long-term use of high-risk medication Long-term use of Plaquenil Encounter for long-term (current) use of other medications Heberden nodes Generalized osteoarthrosis, involving hand Family history of systemic lupus erythematosus Family history of skin conditions Family history of rheumatoid arthritis Family history of arthritis Encounter for long-term (current) use of NSAIDs Encounter for long-term (current) use of non-steroidal anti-inflammatories [facility]* Diagnosis Primary osteoarthritis of right knee- Primary Primary localized osteoarthrosis, lower leg Primary osteoarthritis of right knee Primary localized osteoarthrosis, lower leg [facility]* Diagnosis Primary osteoarthritis of right knee Primary localized osteoarthrosis, lower leg [facility]* Diagnosis Insomnia, unspecified type [facility]* Diagnosis Polyneuropathy- Primary Unspecified hereditary and idiopathic peripheral neuropathy Anxiety Anxiety state, unspecified Primary insomnia Persistent disorder of initiating or maintaining sleep [facility]* Diagnosis Onset Date Resolution Status Dyspepsia acute GERD without esophagitis acu te Nausea alone acute GERD without esophagitis acu te Nausea alone acute [facility] Work Phone: Evaluation note* Diagnosis Insomnia, unspecified type [facility]* Diagnosis Chondromalacia of right patella Chondromalacia of patella [facility] Insomnia, unspecified type- Primary Polyneuropathy Unspecified hereditary and idiopathic peripheral neuropathy [facility] Diagnosis Insomnia, unspecified type [facility] Diagnosis Primary osteoarthritis of right knee- Primary Primary localized osteoarthrosis, lower leg 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 Chondromalacia of patella [facility] Diagnosis Insomnia, unspecified type Polyneuropathy Unspecified hereditary and idiopathic peripheral neuropathy [facility] Diagnosis Insomnia, unspecified type [facility] Diagnosis Acquired hypothyroidism (CMS/HCC) Unspecified hypothyroidism Mixed hyperlipidemia (CMS/HCC) Mixed hyperlipidemia Euthyroid sick syndrome Acquired hypothyroidism (CMS/HCC) Unspecified hypothyroidism Chronic fatigue syndrome [facility] Diagnosis Mixed hyperlipidemia (CMS/HCC) Mixed hyperlipidemia Euthyroid sick syndrome Acquired hypothyroidism (CMS/HCC) Unspecified hypothyroidism Chronic fatigue Other malaise and fatigue [facility] Diagnosis Insomnia, unspecified type [facility] Diagnosis Onset Date Resolution Status Admit Date Dyspepsia acute July 22, 2024 9:12am GERD without esophagitis acute July 22, 2024 9:12am [facility] Work Phone: Evaluation note* Diagnosis Primary osteoarthritis of right knee- Primary Primary localized osteoarthrosis, lower leg [facility] Diagnosis Primary osteoarthritis of right knee- Primary Primary localized osteoarthrosis, lower leg Primary osteoarthritis of right knee Primary localized osteoarthrosis, lower leg [facility] Diagnosis Polyneuropathy- Primary Unspecified hereditary and idiopathic peripheral neuropathy Insomnia, unspecified type Lumbar back pain Lumbago [facility] Diagnosis Pre-op testing- Primary Preoperative examination, unspecified Frequent urination Urinary frequency MRSA (methicillin resistant Staphylococcus aureus) Methicillin resistant Staphylococcus aureus in conditions classified elsewhere and of unspecified site Primary osteoarthritis of right knee Primary localized osteoarthrosis, lower leg Primary osteoarthritis of right knee Primary localized osteoarthrosis, lower leg [facility] Diagnosis Primary osteoarthritis of right knee- Primary Primary localized osteoarthrosis, lower leg Primary osteoarthritis of right knee Primary localized osteoarthrosis, lower leg documented in this encounter [facility]* Diagnosis Pre-op evaluation- Primary Preoperative examination, unspecified ANDREW (obstructive sleep apnea) Obstructive sleep apnea (adult) (pediatric) Mixed hyperlipidemia Sleep disorder Sleep disturbance, unspecified Gastroesophageal reflux disease without esophagitis Esophageal reflux Chronic kidney disease, stage 2 (mild) Hypothyroidism, unspecified type Rheumatoid arthritis involving multiple sites with positive rheumatoid factor (HCC) Primary osteoarthritis of right knee Primary localized osteoarthrosis, lower leg * Assessment & Plan Note - José Luis Rinaldi APRN.CNP - 09/13/2024 2:29 PM EST Associated Problem(s): Rheumatoid arthritis involving multiple sites with positive rheumatoid factor (HCC) Assessment: stable on plaquenil * Assessment & Plan Note - José Luis Rinaldi APRN.CNP - 09/13/2024 2:28 PM EST Associated Problem(s): Hypothyroid Assessment: stable with current medication regimen * Assessment & Plan Note - José Luis Rinaldi APRN.CNP - 09/13/2024 2:28 PM EST Associated Problem(s): Chronic kidney disease, stage 2 (mild) Assessment: Stable, asymptomatic BUN Date Value Ref Range Status 11/27/2023 19 9 - 24 mg/dL Final 05/29/2023 19 9 - 24 mg/dL Final 01/17/2012 17 10 - 25 mg/dL Final Creatinine Date Value Ref Range Status 11/27/2023 1.01 0.73 - 1.22 mg/dL Final 05/29/2023 1.15 0.73 - 1.22 mg/dL Final 01/17/2012 1.09 0.70 - 1.40 mg/dL Final * Assessment & Plan Note - José Luis Rinaldi APRN.CNP - 09/13/2024 2:28 PM EST Associated Problem(s): Gastroesophageal reflux disease Assessment: Managed and stable with current medication. Denies difficulty swallowing or any bleeding. * Assessment & Plan Note - José Luis Rinaldi APRN.CNP - 09/13/2024 2:28 PM EST Associated Problem(s): Sleep disorder Assessment: takes lunesta to sleep * Assessment & Plan Note - José Luis Rinaldi APRN.CNP - 09/13/2024 2:27 PM EST Associated Problem(s): Mixed hyperlipidemia Assessment: stable with current medication regimen * Assessment & Plan Note - José Luis Rinaldi APRN.CNP - 09/13/2024 2:27 PM EST Associated Problem(s): ANDREW (obstructive sleep apnea) Assessment: patient is not CPAP compliant [facility] Diagnosis Primary osteoarthritis of right knee- Primary Primary localized osteoarthrosis, lower leg Rheumatoid arthritis involving multiple sites with positive rheumatoid factor (HCC) Pre-op evaluation- Primary Preoperative examination, unspecified ANDREW (obstructive sleep apnea) Obstructive sleep apnea (adult) (pediatric) Mixed hyperlipidemia Sleep disorder Sleep disturbance, unspecified Gastroesophageal reflux disease without esophagitis Esophageal reflux Chronic kidney disease, stage 2 (mild) Hypothyroidism, unspecified type Rheumatoid arthritis involving multiple sites with positive rheumatoid factor (HCC) Primary osteoarthritis of right knee Primary localized osteoarthrosis, lower leg [facility] Diagnosis Bronchitis- Primary Bronchitis, not specified as acute or chronic [facility] Author Sarahy Downey [facility] Note Date/Time August 06, 2024 8 :26am [facility] [address] [place] [address] Gastroenterology H&P Signed Patient: Regan Fraser MR#: [id number] : 1960 Acct:[id number] Age/Sex: 64 / M Adm Date: 5 Loc: Room: Type: [facility] Attending Dr: Sarahy Downey MD Copies to: MD Sarahy Verma MD~ Date of Service: 08/06/2024 HISTORY & PHYSICAL: Patient's history with special attention to the cardiovascular, pulmonary systems and the current problem was reviewed with the patient immediately prior to the procedure. Present medications and doses reviewed in the EMR. Allergies and pertinent laboratory tests were also reviewedat this time in the EMR. The physical examination, as below, was then performed. Indication, assessment and HPI: 64-year-old man here for EGD for evaluation of dyspepsia Family history of GI malignancy? No PHYSICAL EXAMINATION General appearance: NAD Skin: No jaundice Head: NC/AT Eyes: Anicteric Neck: Supple Lungs: Normal respiratory effort, no use of accessory muscles Abdomen: nondistended Neuro: Ox3. REVIEW OF SYSTEMS Constitutional: Denies malaise, fevers Cardiovascular: Denies chest pain, palpitations Respiratory: Denies shortness of breath, wheezing Gastrointestinal: As per HPI Genitourinary: Denies dysuria, polyuria Musculoskeletal: Denies joint swelling, joint stiffness Neurological: Denies confusion, numbness, tingling Endocrine: Denies fatigue Written informed consent obtained from the patient. Risks (including but not limited to perforation, infection, bloating, bleeding, need for emergent surgeryand loss of life), benefits and alternatives explained and questions answered. The patient verbalized understanding. Based on history patient is an appropriate candidate for the procedure. Sarahy Downey M.D. Documented By: Sarahy Downey MD 08/06/24823 Signed By: <Electronically signed by Sarahy Downey MD> 08/06/24825 [facility] Work Phone: [facility] Narrative - Reported* Type Description Date Medical History Hypothyroidism Medical History hyperlipidemia Medical History Arthritis Surgical History cholecystectomy Hospitalization History See Above code-laboration Other History general Narrative - Reported* Type Description Date Medical History Hypothyroidism Medical History hyperlipidemia Medical History Arthritis Surgical History cholecystectomy Surgical History knee [facility] Hospitalization History See Above code-laboration Other Hospital Discharge instructions Additional Instructions DISCHARGE INSTRUCTIONS FOR UPPER ENDOSCOPY WHAT TO EXPECT: - You may feel full, gassy or cramping after your procedure. In some cases, this may be from a few hours to a day. Walking may help relieve the discomfort. - Your throat may feel sore today from the scope that the doctor passed through your throat to visualize your stomach. Take a throat lozenge or suck on ice to ease the discomfort. - You may notice some streaks of blood in your sputum if the doctor has taken a biopsy. - You should begin to recover from anesthesia within 1 hour of the procedure, however may feel groggy for the next 24 hours. DO's AND DON'Ts: - Call your doctor right away if you have a hard abdomen, severe pain, vomiting or if you cough up large amounts of blood. - Call your doctor if you develop any rashes, hives or difficulty breathing. - If you take 81 mg aspirin for your heart it is safe to resume this medication. - If you take other blood thinner medications your doctor will instruct you when these can safely be resumed. - Do NOT drive for 24 hours. - Do NOT operate machinery such as power tools, lawn mowers, snow blowers, sewing machines, etc. for 24 hours. - Avoid alcoholic beverages and drugs for allergies, nerves, or sleep. - Do NOT stay alone. Do NOT leave your child unattended. - Do NOT make important personal or business decisions or sign any legal documents. - Eat solid foods and drink liquids in smaller amounts than usual until normal appetite returns. If you should experience an upset stomach, liquids high in sugar content (soda, Adonis-Aid, non-acid juices) are recommended. - Do NOT smoke. - Do take it easy today. You need not stay in bed, but avoid strenuous activities such as jogging or working out. FOLLOW UP & RECOMMENDATIONS: -Notify the doctor if you have any problems. -Follow-up pathology -Arrange for ultrasound of the upper abdomen -Office number [phone]. [facility] Work Phone: [facility] for referral (narrative)* Diagnostic Procedure Only (Routine) - Closed Specialty Diagnoses / Procedures Referred By Contac t Referred To Contact XR IMAGING Diagnoses Bilateral hand pain Procedures XR HAND GENERAL 3V PA/LAT/OBL BILATERAL RADEX HAND MINIMUM 3 VIEWS Hayden Shirley MD [address] [place] [address] Xr Imaging Referral ID Status Reason Start Date Expiration Date V isits Requested Visits Authorized [id number] Closed Auto-Generate d Referral 07/14/2022 08/13/2023 1 1 [facility] for referral (narrative)* Diagnostic Procedure Only (Routine) - Closed Specialty Diagnoses / Procedures Referred By Contac t Referred To Contact XR IMAGING Diagnoses Chronic pain of both knees Procedures XR KNEE GENERAL 4V AP BOTH/PA BOTH/LAT/MERC BILATERAL RADIOLOGIC EXAM KNEE COMPLETE 4/MORE VIEWS Hayden Shirley MD [address] [place] [address] [place] [address] Referral ID Status Reason Start Date Expiration Date V isits Requested Visits Authorized [id number] Closed Auto-Generate d Referral 02/27/2023 03/28/2024 1 1 * Consult, Test, Treat (Routine) - Pending Review Specialty Diagnoses / Procedures Referred By Contac t Referred To Contact Orthopedics Diagnoses Chronic pain of both knees Procedures CONSULT TO ORTHOPAEDICS OFFICE/OUTPATIENT [facility] 60-74 MINUTES Hayden Shirley MD [address] [place] [address] Referral ID Status Reason Start Date Expiration Date Visits Requested Visits Authorized [id number] Pending Review PCP Requested Referral 02/27/2023 02/27/2024 1 1 * Consult, Test, Treat (Routine) - Pending Review Specialty Diagnoses / Procedures Referred By Contac t Referred To Contact Pain Management Diagnoses Cervicalgia Chronic bilateral low back pain without sciatica Procedures CONSULT TO PAIN MGT OFFICE/OUTPATIENT [facility] 60-74 MINUTES Hayden Shirley MD [address] [place] [address] Referral ID Status Reason Start Date Expiration Date Visits Requested Visits Authorized [id number] Pending Review PCP Requested Referral 02/27/2023 02/27/2024 1 1 [facility] for referral (narrative)* Diagnostic Procedure Only (Routine) - Closed Specialty Diagnoses / Procedures Referred By Contac t Referred To Contact XR IMAGING Diagnoses Primary osteoarthritis of right knee Procedures XR KNEE GENERAL 4V AP BOTH/PA BOTH/LAT/MERC RIGHT RADIOLOGIC EXAM KNEE COMPLETE 4/MORE VIEWS Shen Christine PA-C [address] [place] [address] [place] [address] Referral ID Status Reason Start Date Expiration Date V isits Requested Visits Authorized [id number] Closed Auto-Generate d Referral 12/15/2023 01/13/2025 1 1 [facility] for referral (narrative)* Diagnostic Procedure Only (Routine) - Closed Specialty Diagnoses / Procedures Referred By Contac t Referred To Contact XR IMAGING Diagnoses Primary osteoarthritis of right knee Procedures XR KNEE GENERAL 4V AP BOTH/PA BOTH/LAT/MERC RIGHT RADIOLOGIC EXAM KNEE COMPLETE 4/MORE VIEWS Shen Christine PA-C [address] [place] [address] [place] [address] Referral ID Status Reason Start Date Expiration Date V isits Requested Visits Authorized [id number] Closed Auto-Generate d Referral 12/15/2023 01/13/2025 1 1 [facility] for referral (narrative)* Diagnostic Procedure Only (Routine) - Closed Specialty Diagnoses / Procedures Referred By Contac t Referred To Contact XR IMAGING Diagnoses Chondromalacia of right patella Procedures XR KNEE GENERAL 4V AP BOTH/PA BOTH/LAT/MERC RIGHT RADIOLOGIC EXAM KNEE COMPLETE 4/MORE VIEWS Shen Christine PA-C [address] [facility] [address] [place] [address] Referral ID Status Reason Start Date Expiration Date V isits Requested Visits Authorized [id number] Closed Auto-Generate d Referral 05/29/2024 06/28/2025 1 1 [facility] for visit Narrative* Diagnostic Procedure Only (Routine) - Closed Specialty Diagnoses / Procedures Referred By Contac t Referred To Contact XR IMAGING Diagnoses Bilateral hand pain Procedures XR HAND GENERAL 3V PA/LAT/OBL BILATERAL RADEX HAND MINIMUM 3 VIEWS Hayden Shirley MD [address] [place] [address] Xr Imaging Referral ID Status Reason Start Date Expiration Date V isits Requested Visits Authorized [id number] Closed Auto-Generate d Referral 07/14/2022 08/13/2023 1 1 [facility] for visit Narrative* Diagnostic Procedure Only (Routine) - Closed Specialty Diagnoses / Procedures Referred By Contac t Referred To Contact XR IMAGING Diagnoses Primary osteoarthritis of right knee Procedures XR KNEE GENERAL 4V AP BOTH/PA BOTH/LAT/MERC RIGHT RADIOLOGIC EXAM KNEE COMPLETE 4/MORE VIEWS Shen Christine PA-C [address] [place] [address] [place] [address] Referral ID Status Reason Start Date Expiration Date V isits Requested Visits Authorized [id number] Closed Auto-Generate d Referral 12/15/2023 01/13/2025 1 [facility] Diagnostic Procedure Only (Routine) - Closed Specialty Diagnoses / Procedures Referred By [place]ac t Referred To Contact XR IMAGING Diagnoses Chondromalacia of right patella Procedures XR KNEE GENERAL 4V AP BOTH/PA BOTH/LAT/MERC RIGHT RADIOLOGIC EXAM KNEE COMPLETE 4/MORE VIEWS Shen Christine PA-C [address] [place] [address] [place] [address] Referral ID Status Reason Start Date Expiration Date V isits Requested Visits Authorized [id number] Closed Auto-Generate d Referral 05/29/2024 06/28/2025 1 1 [facility] Chief Complaint and Reason for Visit Chief Complaint See order r27.0 r53.1 r20.2 Chief Complaint 3 follow up Chief Complaint 3 follow up 2 month follow up Reason for Visit Dyspepsia Chief Complaint 2 month follow up 2 month folllow up / gerd/nausea Reason for Visit Dyspepsia GERD without esophagitis Nausea alone GERD without esophagitis Nausea alone Chief Complaint Admit Date 3 month follow up/gerd July 22 9:12am Reason for Visit Admit Date Dyspepsia July 22, 2024 9 :12am GERD without esophagitis July 22, 9:12am Chief Complaint Admit Date 3 month follow up/gerd July 22 9:12am gerd August 06, 2024 6 :57am gerd August 06, 2024 8 :24am Chief Complaint Admit Date 3 month follow up/gerd July 22 9:12am gerd August 06, 2024 6 :57am gerd August 06, 2024 8 :24am R10.9 August 14, 2024 8 :10am Chief Complaint Admit Date 3 month follow up/gerd July 22 9:12am gerd August 06, 2024 6 :57am gerd August 06, 2024 8 :24am R10.9 August 14, 2024 8 :10am follow up EGD August 20, 2024 1:33pm Advance Directives No Advanced Directives Records Found Advance Directive Response Recorded Date/ Time Advance Directives No August 12:42pm Advance Directive Response Recorded Date/ Time Advance Directives No August 11:42am Summary Purpose Family History No Family History Records Found Relationship Condition Age at Onset Recorded Date/T costa father Unknown Relationship Condition Age at Onset Recorded Date/T costa father Unknown Malignant neoplasm of lung Unknown brother Malignant neoplasm of prostate Unknown History of coronary artery bypass surgery Unknown grandparent Malignant neoplasm of lung Unknown Reason for Referral Specialty Diagnoses / Procedures Referred By Dean cote Referred To Contact Physical Therapy Diagnoses Primary osteoarthritis of right knee Chondromalacia of right patella Procedures CONSULT TO PHYSICAL THERAPY Shen Christine PA-C [address] [place] [address] Referral ID Status Reason Start Date Expiration Date Visits Requested Visits Authorized [id number] Ref Not Required PCP Requested Referral 03/01/2023 02/29/2024 1 1 Specialty Diagnoses / Procedures Referred By Dean cote Referred To Contact Diagnoses Genu varum of right lower extremity Procedures OA BRACE - [employer] - [id number] Shen Christine PA-C [address] [place] [address] Referral ID Status Reason Start Date Expiration Date Visits Requested Visits Authorized [id number] New Request PCP Requested Referral 4 08/29/2024 1 1 Specialty Diagnoses / Procedures Referred By Dean cote Referred To Contact XR IMAGING Diagnoses Chondromalacia of right patella Procedures XR KNEE GENERAL 4V AP BOTH/PA BOTH/LAT/MERC RIGHT RADIOLOGIC EXAM KNEE COMPLETE 4/MORE VIEWS Shen Christine PA-C [address] [place] [address] [place] [address] Referral ID Status Reason Start Date Expiration Date V isits Requested Visits Authorized [id number] Closed Auto-Generate d Referral 05/29/2024 06/28/2025 1 1 Referral ID Status Reason Start Date Expiration Date Visits Requested Visits Authorized [id number] New Request Auto-Generat ed Referral 06/23/2025 1 1 Referral ID Status Reason Start Date Expiration Date Visits Requested Visits Authorized [id number] New Request Auto-Generat ed Referral 4 06/23/2025 1 1 Additional Source Comments Care Teams (unrecognized sec tion and content) Team Status: Active Member Role Status Dates El Bush MD Primary Care Provider Active Team Status: Inactive Member Role Status Dates El Bush MD Primary Care Provider Active Start: January 01, 2024 End: January 01, 2024 Val Mims APRN Attending Provider Active Start: January 01, 2024 End: January 01, 2024 Team Status: Inactive Member Role Status Dates lE Bush MD Primary Care Provider Active Caleb Hsieh DO Attending Provider Active Team Status: Inactive Member Role Status Dates El Bush MD Primary Care Provider Active Ryder Mcginnis MD Attending Provider Active Reservations Agent Relationship Specialty Start Date End Date PcpKaya PCP - General 01/22/22 07/13/22 Reservations Agent Relationship Specialty Start Date End Date El Bush MD [address] [address] (Fax) PCP - General Family Medicine 07/14/22 Reservations Agent Relationship Specialty Start Date End Date El Bush MD [address] [address] (Fax) PCP - General Family Medicine 07/14/22 Reservations Agent Relationship Specialty Start Date End Date El Bush MD [address] [address] (Fax) PCP - General Family Medicine 07/14/22 Reservations Agent Relationship Specialty Start Date End Date El Bush MD [address] [address] (Fax) PCP - General Family Medicine 07/14/22 Reservations Agent Relationship Specialty Start Date End Date El Bush MD [address] [address] (Fax) PCP - General Family Medicine 07/14/22 Reservations Agent Relationship Specialty Start Date End Date El Bush MD [address] [address] (Fax) PCP - General Family Medicine 07/14/22 Reservations Agent Relationship Specialty Start Date End Date El Bush MD [address] [address] (Fax) PCP - General Family Medicine 07/14/22 Reservations Agent Relationship Specialty Start Date End Date El Bush MD [address] [address] (Fax) PCP - General Family Medicine 07/14/22 Reservations Agent Relationship Specialty Start Date End Date El Bush MD [address] [address] (Fax) PCP - General Family Medicine 07/14/22 Reservations Agent Relationship Specialty Start Date End Date El Bush MD [address] [address] (Fax) PCP - General Family Medicine 12/12/22 Reservations Agent Relationship Specialty Start Date End Date El Bush MD [address] [address] (Fax) PCP - General Family Medicine 12/12/22 Reservations Agent Relationship Specialty Start Date End Date El Bush MD [address], [place] [address] (Fax) PCP - General Family Medicine 07/14/22 Reservations Agent Relationship Specialty Start Date End Date El Bush MD [address] [address] (Fax) PCP - General Family Medicine 07/14/22 Reservations Agent Relationship Specialty Start Date End Date El Bush MD [address] [address] (Fax) PCP - General Family Medicine 07/14/22 Reservations Agent Relationship Specialty Start Date End Date El Bush MD [address] [address] (Fax) PCP - General Family Medicine 07/14/22 Reservations Agent Relationship Specialty Start Date End Date El Bush MD [address] [address] (Fax) PCP - General Family Medicine 07/14/22 Team Status: Inactive Member Role Status Dates El Bush MD Primary Care Provider Active Start: February 12, 2024 End: February 12, 2024 Val Mims APRN Attending Provider Active Start: February 12, 2024 End: February 12, 2024 Reservations Agent Relationship Specialty Start Date End Date El Bush MD [address] [address] (Fax) PCP - General Family Medicine 07/14/22 Reservations Agent Relationship Specialty Start Date End Date El Bush MD [address] [address] (Fax) PCP - General Family Medicine 12/12/22 Reservations Agent Relationship Specialty Start Date End Date El Bush MD [address] [place] [address] (Fax) PCP - General Family Medicine 12/12/22 Team Status: Inactive Member Role Status Dates El Bush MD Primary Care Provider Active Start: April 15, 2024 End: April 15, 2024 Val Mims APRN Attending Provider Active Start: April 15, 2024 End: April 15, 2024 Reservations Agent Relationship Specialty Start Date End Date El Bush MD [address] [phone] (Fax) PCP - General Family Medicine 12/12/22 Reservations Agent Relationship Specialty Start Date End Date El Bush MD [address] [place] [address] (Fax) PCP - General Family Medicine 07/14/22 Reservations Agent Relationship Specialty Start Date End Date El Bush MD [address] [address] (Fax) PCP - General Family Medicine 12/12/22 Reservations Agent Relationship Specialty Start Date End Date El Bush MD [address] [place] [address] (Fax) PCP - General Family Medicine 07/14/22 Reservations Agent Relationship Specialty Start Date End Date El Bush MD [address] [phone] (Fax) PCP - General Family Medicine 12/12/22 Reservations Agent Relationship Specialty Start Date End Date El Bush MD [address] [place] [address] (Fax) PCP - General Family Medicine 12/12/22 Reservations Agent Relationship Specialty Start Date End Date El Bush MD [address] [place] [address] (Fax) PCP - General Family Medicine 12/12/22 Reservations Agent Relationship Specialty Start Date End Date El Bush MD [address] [facility] [place] [address] (Fax) PCP - General Family Medicine 12/12/22 Reservations Agent Relationship Specialty Start Date End Date El Bush MD [address] [place] [phone] (Fax) PCP - General Family Medicine 12/12/22 Team Status: Inactive Member Role Status Dates El Bush MD Primary Care Provider Active Start: July 22, 2024 End: July 22, 2024 Val Mims APRN Attending Provider Active Start: July 22, 2024 End: July 22, 2024 Reservations Agent Relationship Specialty Start Date End Date El Bush MD [address] [place] [address] (Fax) PCP - General Family Medicine 07/14/22 Team Status: Inactive Member Role Status Dates El Bush MD Primary Care Provider Active Start: August 06, 2024 End: August 06, 2024 Sarahy Downey MD Attending Provider Active Start: August 06, 2024 End: August 06, 2024 Team Status: Active Member Role Status Dates El Bush MD Primary Care Provider Active Start: August 06, 2024 Sarahy Downey MD Attending Provider, Other Provider Active Start: August 06, 2024 Team Status: Inactive Member Role Status Dates El Bush MD Primary Care Provider Active Start: August 14, 2024 End: August 14, 2024 Sarahy Downey MD Attending Provider Active Start: August 14, 2024 End: August 14, 2024 Team Status: Inactive Member Role Status Dates El Bush MD Primary Care Provider Active Start: August 20, 2024 End: August 20, 2024 Val Mims APRN Attending Provider Active Start: August 20, 2024 End: August 20, 2024 Reservations Agent Relationship Specialty Start Date End Date El Bush MD [address] [place], [place] [address] (Fax) PCP - General Family Medicine 07/14/22 Reservations Agent Relationship Specialty Start Date End Date El Bush MD [address] [place] [address] (Fax) PCP - General Family Medicine 07/14/22 Reservations Agent Relationship Specialty Start Date End Date El Bush MD [address] [address] (Fax) PCP - General Family Medicine 07/14/22 Reservations Agent Relationship Specialty Start Date End Date El Bush MD [address] [place] [address] (Fax) PCP - General Family Medicine 07/14/22 Reservations Agent Relationship Specialty Start Date End Date El Bush MD [address] [place] [address] (Fax) PCP - General Family Medicine 07/14/22 Reservations Agent Relationship Specialty Start Date End Date El Bush MD [address] [place] [address] PCP - General Family Medicine 07/14/22 Reservations Agent Relationship Specialty Start Date End Date El Bush MD [address] [facility] [address] [place] [address] PCP - General Family Medicine 12/12/22 Goals (unrecognized section and content) Goals may be documented in a n alternate sectionNo InformationNo InformationGoals may be documented in an alternate sectionGoals may be documented in an alternate sectionGoals may be documented in an alternate sectionGoals may be documented in an alternate section (unrecognized sect ion and content) No Status Records FoundNo Status Records FoundNo Status Records FoundNo Status Records FoundNo Status Records Found INFORMATION SOURCE (unrecogn ized section and content) DATE CREATED AUTHOR 12/13/2021 [facility] DATE CREATED AUTHOR AUTHOR'S ORGANIZ ATION 07/18/2022 [facility] DATE CREATED AUTHOR AUTHOR'S ORGANIZ ATION 08/15/2024 [facility] DATE CREATED AUTHOR AUTHOR'S ORGANIZ ATION 08/30/2024 [facility] EPIC DATE CREATED AUTHOR AUTHOR'S ORGANIZ ATION 10/04/2024 [facility] Source Comments (unrecognize d section and content) In the event this informatio n is protected by the Federal Confidentiality of Alcohol and Drug Abuse Patient Records regulations: The Federal rules restrict any use of the information to criminally investigate or prosecute any alcohol or drug abuse patient.[facility] the event this information is protected by the Federal Confidentiality of Alcohol and Drug Abuse Patient Records regulations: The Federal rules restrict any use of the information to criminally investigate or prosecute any alcohol or drug abuse patient.[facility] the event this information is protected by the Federal Confidentiality of Alcohol and Drug Abuse Patient Records regulations: The Federal rules restrict any use of the information to criminally investigate or prosecute any alcohol or drug abuse patient.[facility] the event this information is protected by the Federal Confidentiality of Alcohol and Drug Abuse Patient Records regulations: The Federal rules restrict any use of the information to criminally investigate or prosecute any alcohol or drug abuse patient.[facility] the event this information is protected by the Federal Confidentiality of Alcohol and Drug Abuse Patient Records regulations: The Federal rules restrict any use of the information to criminally investigate or prosecute any alcohol or drug abuse patient.[facility] the event this information is protected by the Federal Confidentiality of Alcohol and Drug Abuse Patient Records regulations: The Federal rules restrict any use of the information to criminally investigate or prosecute any alcohol or drug abuse patient.[facility] the event this information is protected by the Federal Confidentiality of Alcohol and Drug Abuse Patient Records regulations: The Federal rules restrict any use of the information to criminally investigate or prosecute any alcohol or drug abuse patient.[facility] the event this information is protected by the Federal Confidentiality of Alcohol and Drug Abuse Patient Records regulations: The Federal rules restrict any use of the information to criminally investigate or prosecute any alcohol or drug abuse patient.[facility] the event this information is protected by the Federal Confidentiality of Alcohol and Drug Abuse Patient Records regulations: The Federal rules restrict any use of the information to criminally investigate or prosecute any alcohol or drug abuse patient.[facility] the event this information is protected by the Federal Confidentiality of Alcohol and Drug Abuse Patient Records regulations: The Federal rules restrict any use of the information to criminally investigate or prosecute any alcohol or drug abuse patient.[facility] the event this information is protected by the Federal Confidentiality of Alcohol and Drug Abuse Patient Records regulations: The Federal rules restrict any use of the information to criminally investigate or prosecute any alcohol or drug abuse patient.[facility] the event this information is protected by the Federal Confidentiality of Alcohol and Drug Abuse Patient Records regulations: The Federal rules restrict any use of the information to criminally investigate or prosecute any alcohol or drug abuse patient.[facility] the event this information is protected by the Federal Confidentiality of Alcohol and Drug Abuse Patient Records regulations: The Federal rules restrict any use of the information to criminally investigate or prosecute any alcohol or drug abuse patient.[facility] the event this information is protected by the Federal Confidentiality of Alcohol and Drug Abuse Patient Records regulations: The Federal rules restrict any use of the information to criminally investigate or prosecute any alcohol or drug abuse patient.[facility] the event this information is protected by the Federal Confidentiality of Alcohol and Drug Abuse Patient Records regulations: The Federal rules restrict any use of the information to criminally investigate or prosecute any alcohol or drug abuse patient.[facility] the event this information is protected by the Federal Confidentiality of Alcohol and Drug Abuse Patient Records regulations: The Federal rules restrict any use of the information to criminally investigate or prosecute any alcohol or drug abuse patient.[facility] the event this information is protected by the Federal Confidentiality of Alcohol and Drug Abuse Patient Records regulations: The Federal rules restrict any use of the information to criminally investigate or prosecute any alcohol or drug abuse patient.[facility] the event this information is protected by the Federal Confidentiality of Alcohol and Drug Abuse Patient Records regulations: The Federal rules restrict any use of the information to criminally investigate or prosecute any alcohol or drug abuse patient.[facility]In the event this information is protected by the Federal Confidentiality of Alcohol and Drug Abuse Patient Records regulations: The Federal rules restrict any use of the information to criminally investigate or prosecute any alcohol or drug abuse patient.[facility]In the event this information is protected by the Federal Confidentiality of Alcohol and Drug Abuse Patient Records regulations: The Federal rules restrict any use of the information to criminally investigate or prosecute any alcohol or drug abuse patient.[facility]In the event this information is protected by the Federal Confidentiality of Alcohol and Drug Abuse Patient Records regulations: The Federal rules restrict any use of the information to criminally investigate or prosecute any alcohol or drug abuse patient.[facility]In the event this information is protected by the Federal Confidentiality of Alcohol and Drug Abuse Patient Records regulations: The Federal rules restrict any use of the information to criminally investigate or prosecute any alcohol or drug abuse patient.[facility] HospitalIn the event this information is protected by the Federal Confidentiality of Alcohol and Drug Abuse Patient Records regulations: The Federal rules restrict any use of the information to criminally investigate or prosecute any alcohol or drug abuse patient.[facility]In the event this information is protected by the Federal Confidentiality of Alcohol and Drug Abuse Patient Records regulations: The Federal rules restrict any use of the information to criminally investigate or prosecute any alcohol or drug abuse patient.[facility] the event this information is protected by the Federal Confidentiality of Alcohol and Drug Abuse Patient Records regulations: The Federal rules restrict any use of the information to criminally investigate or prosecute any alcohol or drug abuse patient.[facility]In the event this information is protected by the Federal Confidentiality of Alcohol and Drug Abuse Patient Records regulations: The Federal rules restrict any use of the information to criminally investigate or prosecute any alcohol or drug abuse patient.[facility]In the event this information is protected by the Federal Confidentiality of Alcohol and Drug Abuse Patient Records regulations: The Federal rules restrict any use of the information to criminally investigate or prosecute any alcohol or drug abuse patient.[facility]In the event this information is protected by the Federal Confidentiality of Alcohol and Drug Abuse Patient Records regulations: The Federal rules restrict any use of the information to criminally investigate or prosecute any alcohol or drug abuse patient.[facility]In the event this information is protected by the Federal Confidentiality of Alcohol and Drug Abuse Patient Records regulations: The Federal rules restrict any use of the information to criminally investigate or prosecute any alcohol or drug abuse patient.[facility] Reason for Visit (unrecogniz ed section and content) Reason Comments Patient Question Reason Comments Radiology XR Reason Comments Results Reason Comments Refill Request Reason Comments Follow Up Pain Ongoing generalized pain. Reason Comments New Reason Comments Patient Request Fax PT Order to [facility] in [place], [place] Reason Comments Medication Problem Reason Comments Anxiety Reason Comments Recheck Right hand is gettin g worse. Knuckles are swelling. Back pain (upper back) knee pain. Wrist pain. Pain scale 4-5. Pt took lyrica. Reason Comments Patient Update Calling regarding ge l inijection Reason Comments Med Refill Reason Comments Established Patient Knee Pain Follow Up Reason Comments Med Change Request Reason Onset Date Comments Med Refill 03/14/2024 Lunesta Reason Comments Hyperlipidemia Hypothyroidism Reason Onset Date Comments Med Refill 07/11/2024 Reason Comments Patient Update Reason Comments Established Patient Reason Comments Pre-Op Visit FOR RECORDS PERTAINING TO PATIENTS WHO ARE OR HAVE BEEN ENROLLED IN A CHEMICAL DEPENDENCY/SUBSTANCEABUSE PROGRAM, SOME INFORMATION MAY BE OMITTED. This clinical summary was aggregated from multiple sources. Caution should be exercised in using it in the provision of clinical care. This summary normalizes information from multiple sources, and as a consequence, information in this document may materially change the coding, format and clinical context of patient data. In addition, data may be omitted in some cases. CLINICAL DECISIONS SHOULD BE BASED ON THE PRIMARY CLINICAL RECORDS. [facility]. provides no warranty or guarantee of the accuracy or completeness of information in this document.
[2024-10-06] MEDS: ONDANSETRON PF 4 MG/2 ML VIAL IV (09:11)
[2024-10-06 09:30] LABS: Basophils Percent Auto 0.2 % (0.2-2.0); Eosinophils Absolute Auto 0.1 10^3/uL (0.0-0.7); Eosinophils Percent Auto 0.7 % (0.9-7.0); Hematocrit 30.3 % (42.0-54.0); Hemoglobin 10.5 g/dL (14.0-18.0); Immature Granulocytes Abs Auto 0.02 10^3/uL (0.00-0.03); Immature Granulocytes Pct Auto 0.2 % (0.0-0.5); Lymphocytes Absolute Auto 0.6 10^3/uL (1.2-3.8); Lymphocytes Percent Auto 6.3 % (20.5-60.0); Mean Corpuscular HGB Conc 34.7 g/dL (29.9-35.2); Mean Corpuscular Hemoglobin 32.2 pg (25.9-34.0); Mean Corpuscular Volume 92.9 fL (80.0-94.0); Mean Platelet Volume 8.8 fL (9.5-13.5); Monocytes Absolute Auto 0.8 10^3/uL (0.3-0.8); Monocytes Percent Auto 8.8 % (1.7-12.0); Neutrophils Absolute Auto 7.9 10^3/uL (1.4-6.5); Neutrophils Percent Auto 83.8 % (43.0-75.0); Platelet Count 209 10^3/uL (150-450); Red Blood Count 3.26 10^6/uL (4.70-6.10); Red Cell Distribution Width 13.5 % (11.0-15.0); White Blood Count 9.4 10^3/uL (4.0-11.0)
[2024-10-06 09:40] LABS: Anion Gap 12.8; BUN Creatinine Ratio 16.4; Calcium 8.9 mg/dL (8.5-10.1); Carbon Dioxide 28.4 mmol/L (21.0-32.0); Chloride 102 mmol/L (98-107); Estimated GFR (African America >60 (>=60 mL/min/1.73m^2); Estimated GFR (Non-African Ame >60 (>=60 mL/min/1.73m^2); Glucose 129 mg/dL (74-106); Potassium 4.2 mmol/L (3.5-5.1); Sodium 139 mmol/L (136-145)
== END 2024-10-06 10:56 | disposition home or self-care (01) ==
PROVIDERS: Emergency Provider Emergency Medicine; PCP Family Medicine
DX: G89.18 Other acute postprocedural pain (principal); M25.561 Pain in right knee; Z96.651 Presence of right artificial knee joint; Z87.891 Personal history of nicotine dependence; Z98.890 Other specified postprocedural states
CPT/HCPCS: 36415; 73562; 80048; 85025; 93005; 96374; 96375; 96376; 99285; J2270; J2405